=== PATIENT | female | born 1945 | race Caucasian/White ===

== ENCOUNTER → 2017-12-11 | Outpatient (REF) | payer MEDICARE | LOC: M LAB REF 12:44 | DX: R53.83 Other fatigue (principal) | CPT/HCPCS: 82607 ==

== ENCOUNTER 2018-09-17 20:39 | Inpatient (IN) | payer MEDICARE ==
[~2018-09-17] VITALS: Ht 167.6 cm; Wt 67.1 kg
[2018-09-17] MEDS ORDERED: NEUR300C PO (20:54)
[2018-09-17] MEDS ORDERED: VITAD1000T PO (21:00)
[2018-09-17] MEDS ORDERED: BIOT10TA2 PO (21:00)
[2018-09-17] MEDS ORDERED: GABAPENTIN 300 MG CAP PO SCH (21:00)
[2018-09-17] MEDS ORDERED: ASPI81TA85 PO (21:00)
[2018-09-17] MEDS ORDERED: CIDA500T2 PO (21:00)
[2018-09-17] MEDS ORDERED: FISH1000 PO (21:00)
[2018-09-17] MEDS ORDERED: CALC600T60 PO (21:00)
[2018-09-17] MEDS ORDERED: COQ-100C5 PO (21:03)
[2018-09-17] MEDS ORDERED: STOO1CAP7 PO (21:03)
[2018-09-17] MEDS ORDERED: NS 500 ML IV ONE (21:15)
[2018-09-17] MEDS: MORPHINE 2 MG/ML 1ML SYRINGE (J2270) IV PRN ×2 (21:40→23:40)
[2018-09-17 21:47] LABS: BASO % 0.6 % (0.0-1.0); EOS # 0.1 10^3/uL (0.0-0.50); EOS % 1.4 % (0.0-3.0); HEMATOCRIT 36.2 % (36.0-47.0); HEMOGLOBIN 11.8 g/dl (12.0-15.5); LYMPH # 1.5 10^3/uL (1.5-4.5); LYMPH % 20.6 % (24.0-44.0); MEAN CORPUSCULAR HEMOGLOBIN 29.5 pg (27.0-33.0); MEAN CORPUSCULAR HGB CONC 32.6 g/dl (32.0-36.5); MEAN CORPUSCULAR VOLUME 90.5 fl (80.0-96.0); MONO # 0.5 10^3/uL (0.0-0.8); MONO % 6.6 % (0.0-5.0); NEUTROPHILS % 70.4 % (36.0-66.0); PLATELET COUNT, AUTOMATED 258 10^3/uL (150-450); WHITE BLOOD COUNT 7.1 10^3/uL (4.0-10.0)
[2018-09-17 21:59] LABS: INR 1.06; PROTHROMBIN TIME 13.5 SECONDS (11.8-14.0)
[2018-09-17 22:00] LABS: PARTIAL THROMBOPLASTIN TIME 30.7 SECONDS (25.0-38.4)
[2018-09-17 22:15] LABS: ALBUMIN 3.7 GM/DL (3.2-5.2); ALT/SGPT 27 U/L (12-78); BILIRUBIN,DIRECT 0.1 MG/DL (0.0-0.2); BILIRUBIN,TOTAL 0.3 MG/DL (0.2-1.0); BLOOD UREA NITROGEN 17 MG/DL (7-18); CALCIUM LEVEL 8.6 MG/DL (8.8-10.2); CARBON DIOXIDE LEVEL 25 MEQ/L (21-32); CHLORIDE LEVEL 109 MEQ/L (98-107); CK-MB VALUE MASS 2.9 NG/ML (<3.6); CPK CREATINE PHOSPHOKINASE 137 U/L (26-192); CREATININE FOR GFR 0.78 MG/DL (0.55-1.30); FREE T4 0.99 NG/DL (0.76-1.46); GLOMERULAR FILTRATION RATE > 60.0 (>39); GLUCOSE, FASTING 92 MG/DL (70-100); MB/CK RELATIVE INDEX 2.12 (< OR =4); POTASSIUM SERUM 3.9 MEQ/L (3.5-5.1); SODIUM LEVEL 143 MEQ/L (136-145); TOTAL PROTEIN 6.5 GM/DL (6.4-8.2); TROPONIN I < 0.02 NG/ML (< 0.10)
[2018-09-17] MEDS ORDERED: VITMTA PO (22:57)
[2018-09-17] MEDS ORDERED: GLUCTAB6 PO (22:57)
[2018-09-17] MEDS ORDERED: DOCUSATE SODIUM 100 MG CAP PO PRN (23:45)
[2018-09-17] MEDS ORDERED: ACETAMINOPHEN TAB 650MG DOSE (2X325MG) PO PRN (23:45)
[2018-09-18] VITALS (7 sets, daily range): BP systolic 125–157; BP diastolic 65–76
--- NOTE | 2018-09-18 01:46 | HPEPDOC ---
General Date of Admission Sep 17, 2018 at 23:31 Date of Service: Sep 18, 2018 Chief Complaint The patient is a 72-year-old female admitted with a reason for visit of Fracture Of Right Hip. History of Present Illness 72-year-old female with past medical history of osteoporosis and neuropathy secondary to chronic back pain presented to the ER after she sustained a mechanical fall. The patient states that she was walking down the steps and missed a step and fell on her right side. She denies any prodromal symptoms of lightheadedness, dizziness, chest pain, palpitations, abdominal pain, or any nausea/vomiting/diarrhea. At baseline, the patient states she is quite active and gardens for hours at a time. She also states that she is able to mow her own lawn with a push lawnmower for extended periods of time without any complaints. She denies any history of cardiac disease or lung disease. She denies any functional limitations, and is able to climb several flights of stairs while holding a bag of groceries. She was brought to the ER for further evaluation and management. In the ER, patient was noted to have a right hip fracture. She was evaluated by orthopedic surgery, and is tentatively scheduled for the OR tomorrow. She will be admitted to the hospitalist service for further evaluation and management. Home Medications Scheduled Biotin (Biotin) 10 Mg Tablet, 10 MG PO QHS, (Reported) Calcium Carbonate (Calcium) 600 Mg Tablet, 600 MG PO BID, (Reported) Gabapentin (Neurontin) 300 Mg Capsule, 300 MG PO TID, (Reported) Gluc Klein/Chondro Klein A/Vit C/Mn (Glucosamine Chondroitin Tab) 1 Each Tablet, 2 TAB PO BID, (Reported) Multivitamins (Thera M Plus Tablet) 1 Each Tablet, 1 TAB PO DAILY, (Reported) Carmel-3 Fatty Acids/Fish Oil (Fish Oil 1,000 mg Capsule) 1 Each Capsule, 1,000 MG PO QHS, (Reported) Ubidecarenone (Coq-10) 100 Mg Capsule, 100 MG PO DAILY, (Reported) Scheduled PRN Docusate Sodium (Stool Softener) 250 Mg Capsule, 250 MG PO DAILY PRN for CONSTIPATION, (Reported) Allergies Coded Allergies: No Known Allergies (Unverified , 09/17/18) Past Medical History Medical History As noted in HPI. Social History * Smoker: Denies Alcohol: occationally Drugs: denies Functionally independent. Lives with her . Review of Systems Other systems 10 point review of systems negative unless otherwise specified in HPI. Physical Examination General Exam: Positive: Alert, Cooperative, No Acute Distress ENT Exam: Positive: Atraumatic, Mucous membr. moist/pink Neck Exam: Negative: JVD Chest Exam: Positive: Clear to auscultation, Normal air movement Heart Exam: Positive: Rate Normal, Normal S1, Normal S2 Abdomen Exam: Positive: Soft; Negative: Tenderness Extremity Exam: Positive: Other (right hip joint with limited range of motion secondary to fracture. Extremity neurovascularly intact distally.); Negative: Swelling Psych Exam: Positive: Oriented x 3 Vital Signs Vital Signs Date Time Temp Pulse Resp B/P (MAP) Pulse Ox O2 Delivery O2 Flow Rate FiO2 09/18/18 00:14 18 95 09/17/18 23:45 74 09/17/18 23:44 142/67 (92) Room Air 09/17/18 20:55 97.7 Laboratory Data Labs 24H Laboratory Tests 2 09/17/18 21:21: Immature Granulocyte % (Auto) 0.4, White Blood Count 7.1, Red Blood Count 4.00, Hemoglobin 11.8L, Hematocrit 36.2, Mean Corpuscular Volume 90.5, Mean Co rpuscular Hemoglobin 29.5, Mean Corpuscular Hemoglobin Concent 32.6, Red Cell Distribution Width 13.3, Platelet Count 258, Neutrophils (%) (Auto) 70.4H, Lymphocytes (%) (Auto) 20.6L, Monocytes (%) (Auto) 6.6H, Eosinophils (%) (Auto) 1.4, Basophils (%) (Auto) 0.6, Neutrophils # (Auto) 5.0, Lymphocytes # (Auto) 1.5, Monocytes # (Auto) 0.5, Eosinophils # (Auto) 0.1, Basophils # (Auto) 0.0, Nucleated Red Blood Cells % (auto) 0.0, Prothrombin Time 13.5, Prothromb Time International Ratio 1.06, Activated Partial Thromboplast Time 30.7, Anion Gap 9, Glomerular Filtration Rate > 60.0, Calcium Level 8.6L, Aspartate Amino Transf (AST/SGOT) 30, Alanine Aminotransferase (ALT/SGPT) 27, Alkaline Phosphatase 53, Total Bilirubin 0.3, Direct Bilirubin 0.1, Total Creatine Kinase 137, Creatine Kinase MB 2.9, Creatine Kinase MB Relative Index 2.12, Troponin I < 0.02, Total Protein 6.5, Albumin 3.7, Albumin/Globulin Ratio 1.32, Thyroid Stimulating Hormone (TSH) 7.370H, Free Thyroxine 0.99 CBC/BMP Laboratory Tests 09/17/18 21:21 Red Blood Count 4.00, Mean Corpuscular Volume 90.5, Mean Corpuscular Hemoglobin 29.5, Mean Corpuscular Hemoglobin Concent 32.6, Red Cell Distribution Width 13.3, Neutrophils (%) (Auto) 70.4 H, Lymphocytes (%) (Auto) 20.6 L, Monocytes (%) (Auto) 6.6 H, Eosinophils (%) (Auto) 1.4, Basophils (%) (Auto) 0.6, Neutrophils # (Auto) 5.0, Lymphocytes # (Auto) 1.5, Monocytes # (Auto) 0.5, Eosinophils # (Auto) 0.1, Basophils # (Auto) 0.0 Plan / VTE VTE Prophylaxis Ordered?: Yes Plan Plan Right Hip Fracture XR imaging noted Patient evaluated by orthopedic surgery, tentatively schedule for the operating room in the a.m. At this time, the patient is medically optimized to proceed for surgical intervention. No further invasive testing is necessary. History of neuropathy Continue gabapentin DVT prophylaxis SCDs/TEDs for now---will need to be transitioned to prophylactic anticoagulation as per orthopedic surgery postoperatively EBENEZER DURAN MD Sep 18, 2018 01:46
[2018-09-18] MEDS: GABAPENTIN 300 MG CAP PO SCH ×3 (05:01→21:08)
[2018-09-18] MEDS: PERCOCET 5MG/325MG TAB PO PRN ×2 (05:01→12:33)
--- NOTE | 2018-09-18 05:47 | CR ---
DATE OF CONSULTATION: 09/17/2018 CHIEF COMPLAINT: Right hip pain. HISTORY OF PRESENT ILLNESS: This is a pleasant 72-year-old female, who [place] opera [place] when she missed a step and fell to her right hip. She had immediate pain and was able to ambulate. The patient is quite healthy at baseline and is very active. She does not require a cane or walker. She mows her own lawn and has no difficulty with activities such as climbing stairs. She was brought to the emergency room (ER) where she was found to have a displaced right femoral neck fracture. PAST MEDICAL HISTORY: 1. Osteoporosis. 2. Lower back pain due to a herniated disk. PAST SURGICAL HISTORY: Tonsillectomy. ALLERGIES: No known drug allergies. HOME MEDICATIONS: Biotin, calcium carbonate, gabapentin, glucosamine, multivitamins, fish oil, vitamin CoQ 10. SOCIAL HISTORY: The patient does not smoke. She occasionally drinks alcohol. Again, she is quite active. She is here tonight with her . They live in [place]. PHYSICAL EXAMINATION: GENERAL: Well-appearing, alert and oriented, in no acute distress. CARDIOVASCULAR: Regular rate and rhythm. CHEST: Lungs clear to auscultation bilaterally. ABDOMEN: Soft, nontender. MUSCULOSKELETAL: On the right hip, there is tenderness to palpation along the lateral hip. There is pain. The also complains of pain in her right groin. Intact dorsiflexion, plantar flexion. Intact EHL as well. Normal sensation to light touch in the superficial peroneal, deep peroneal, tibial distribution. Palpable DP pulse. IMAGING: Right hip x-rays show a displaced right femoral neck fracture. IMPRESSION: Right displaced femoral neck fracture. PLAN: The patient will be admitted to the medical service and cleared for the operating room. A discussion was had with the patient and her . Given the nature of her fracture, she could potentially be a candidate for a total hip arthroplasty given her young age and an active lifestyle. Another consideration would be a hemiarthroplasty. I have told her that she can further discuss this tomorrow with the insulation helper physician. Plan will be to go to the operating room once medically clear. Until then will need deep vein thrombosis (DVT) prophylaxis depending on when she will be able to go to the operating room. edited: 09/23/2018 0820 nishant JOHNSON
[2018-09-18 06:51] LABS: HEMATOCRIT 36.3 % (36.0-47.0); MEAN CORPUSCULAR HEMOGLOBIN 29.7 pg (27.0-33.0); MEAN CORPUSCULAR HGB CONC 33.1 g/dl (32.0-36.5); MEAN CORPUSCULAR VOLUME 89.9 fl (80.0-96.0); PLATELET COUNT, AUTOMATED 256 10^3/uL (150-450); RED BLOOD COUNT 4.04 10^6/uL (4.00-5.40); WHITE BLOOD COUNT 6.4 10^3/uL (4.0-10.0)
[2018-09-18 07:11] LABS: BLOOD UREA NITROGEN 13 MG/DL (7-18); CALCIUM LEVEL 8.4 MG/DL (8.8-10.2); CARBON DIOXIDE LEVEL 31 MEQ/L (21-32); CHLORIDE LEVEL 111 MEQ/L (98-107); GLOMERULAR FILTRATION RATE > 60.0 (>39); GLUCOSE, FASTING 93 MG/DL (70-100); MAGNESIUM LEVEL 2.1 MG/DL (1.8-2.4); POTASSIUM SERUM 3.9 MEQ/L (3.5-5.1); SODIUM LEVEL 145 MEQ/L (136-145)
--- NOTE | 2018-09-18 08:47 | REP ---
PELVIS AND RIGHT HIP: AP view of the pelvis and AP and crosstable lateral views of the right hip are performed. There is a right femoral neck fracture. No other acute fracture or dislocation is seen. There are mild degenerative changes of the lower lumbar spine and hips. IMPRESSION: Right femoral neck fracture. Electronically Signed by Norberto Fernando MD 09/19/2018 10:35 A
--- NOTE | 2018-09-18 08:52 | REP ---
CHEST, SINGLE VIEW: Single view of the chest is performed and compared to a prior study of 09/12/2015. There is no acute infiltrate. Heart is upper limits of normal in size. Mediastinal silhouette is unchanged. IMPRESSION: No acute infiltrate. Electronically Signed by Norberto Fernando MD 09/19/2018 10:35 A
[2018-09-18] MEDS: MULTIVITAMINS/MINERALS THERAP 1 TAB PO SCH (10:04)
--- NOTE | 2018-09-18 12:04 | IPN ---
DATE OF CONSULTATION: 09/18/2018 Patient seen and examined. 72-year woman who fell yesterday injuring her right hip. She was noted to have a right femoral neck fracture. She was seen by Dr. Knott and was cleared for surgery today. She has been nothing by mouth. Preoperative antibiotics have been ordered. She has a type and screen available. I spoke with Dr. Knott today and she had requested that I proceed with surgical treatment of this. The patient and her significant other were aware. She essentially missed a step and fell onto her right hip. Past medical history is notable for osteoporosis and lower back pain due to herniated disc and takes Neurontin for this. Physician exam, otherwise alert, oriented, no acute distress. The right hip demonstrates some irritability with range of motion, some tenderness to palpation. She has no tenderness to her femur, knee, tibia, ankle, foot. Her left lower extremity is non-irritable to range of motion. X-rays were reviewed, and she has a Garden IV femoral neck fracture with a displaced fracture. I spoke with her about the options as had Dr. Knott. She has been cleared for surgery. I believe the options would be in my mind open reduction, internal fixation of the fracture but I think that would not be the first choice given her age and the displacement of the fracture and the high risk of avascular necrosis (AVN) and nonunion. There would be consideration for total hip replacement or hemiarthroplasty. I would advise hemiarthroplasty due to the fact that she is 72 years of age and she had no preexisting hip pain. X-rays do not show any significant arthritic change, maybe minimal. I have also discussed this with several of my partners. She is in agreement and wishes to go ahead with a right hip hemiarthroplasty; that is remove the femoral head and replace the femoral head with a metal prosthesis that cemented into the femur. She understands the nature of this, the risks of bleeding, infection, damage to nerves, vessels, persistent pain, wear loosening, dislocation, blood clots, medical problems, , among others. We will plan on doing a right hip hemiarthroplasty. edited: 09/23/2018 0823 tkf JUAND
[2018-09-18] MEDS ORDERED: EPINEPHrine INJ 1 MG/ML 1ML AMP As Ordered ONE (15:40)
[2018-09-18] MEDS ORDERED: ceFAZolin 1GM INJ (J0690 PER 500MG) As Ordered ONE (15:40)
[2018-09-18] MEDS ORDERED: LIDOCAINE 2% INJ 100 MG/5 ML SDV (FOR ANES.) As Ordered ONE (15:47)
[2018-09-18] MEDS ORDERED: MIDAZOLAM INJ 2 MG/2 ML VIAL (J2250) As Ordered ONE (15:47)
[2018-09-18] MEDS ORDERED: PROPOFOL 200 MG/20 ML VIAL As Ordered ONE ×2 (15:47→17:44)
[2018-09-18] MEDS ORDERED: ONDANSETRON 4MG/2ML VIAL (J2405) As Ordered ONE ×2 (15:50→18:27)
[2018-09-18] MEDS ORDERED: ceFAZolin 2 GM/D5W 50 ML IV BAG (J0690 PER 500MG) As Ordered ONE (16:12)
[2018-09-18] MEDS ORDERED: KETAMINE HCL 200 MG/20 ML VIAL As Ordered ONE (16:25)
[2018-09-18] MEDS ORDERED: ePHEDrine SULFATE 25 MG/5 ML(5MG/ML) SYRINGE As Ordered ONE (17:11)
[2018-09-18] MEDS ORDERED: PHENYLEPHRINE INJ 10MG/ML VIAL (J2370) As Ordered ONE (17:16)
[2018-09-18] MEDS ORDERED: PERCOCET 5MG/325MG TAB As Ordered ONE (18:27)
[2018-09-18] MEDS ORDERED: METOCLOPRAMIDE INJ 10MG/2ML VIAL (J2765) As Ordered ONE (18:27)
[2018-09-18] MEDS ORDERED: PERCOCET 5MG/325MG TAB PO PRN (18:30)
[2018-09-18] MEDS ORDERED: ONDANSETRON 4MG/2ML VIAL (J2405) IV PRN ×2 (18:30→18:45)
[2018-09-18] MEDS ORDERED: METOCLOPRAMIDE INJ 10MG/2ML VIAL (J2765) IV PRN (18:30)
[2018-09-18] MEDS ORDERED: fentaNYL 100 MCG/2 ML INJECTION (J3010) IV PRN (18:30)
[2018-09-18] MEDS ORDERED: LR 1,000 ML IV SCH ×2 (18:30)
[2018-09-18] MEDS ORDERED: FLEET ENEMA PR PRN (18:45)
[2018-09-18] MEDS ORDERED: MORPHINE 4 MG/ML 1ML VIAL/SYRINGE (J2270) IV PRN ×2 (18:45)
--- NOTE | 2018-09-18 20:22 | ECGEPIP ---
[facility] - ED Test Date: 2018-09-17 Pat Name: JADA FRYE Department: Room: [place] [address] Gender: Female Cardiac Cath Lab Manager: DELBERT : 1945 Requested By: JUANI Walker Order Number: [id number] Reading MD: Amari Phillips Measurements Intervals [place] Rate: 69 P: 60 SD: 191 QRS: 57 QRSD: 88 T: 64 QT: 369 QTc: 397 Interpretive Statements SINUS RHYTHM POSSIBLE LEFT ATRIAL ENLARGEMENT POSSIBLE LEFT VENTRICULAR HYPERTROPHY NO PRIOR ECG FOR COMPAIRSON BASELINE ARTIFACT MAY AFFECT READING DELAYED R WAVE PROGRESSION Electronically Signed on 09-18-2018 20:21:30 EDT by Amari Phillips
[2018-09-19] MEDS: PERCOCET 5MG/325MG TAB PO PRN ×4 (00:01→22:45)
[2018-09-19 06:13] VITALS: BP 127/65
[2018-09-19] MEDS: GABAPENTIN 300 MG CAP PO SCH ×3 (06:33→21:14)
--- NOTE | 2018-09-19 06:39 | ECGEPIP ---
[facility] Test Date: 2018-09-18 Pat Name: JADA FRYE Department: Room: [place] [address] Gender: Female Sample Coordinator: GUANACO : 1945 Requested By: Barak Duncan Order Number: [id number] Reading MD: Khloe Gomes Measurements Intervals [place] Rate: 64 P: 61 WI: 181 QRS: 62 QRSD: 99 T: 68 QT: 406 QTc: 421 Interpretive Statements SINUS RHYTHM VOLTAGE CRITERIA FOR LVH UNEVEN BASELINE IMPROVED T ABN V2 APPEARS Stable c/w 09/17/18 Electronically Signed on 09-19-2018 6:39:18 EDT by Khloe Gomes
[2018-09-19 06:43] LABS: HEMATOCRIT 32.2 % (36.0-47.0); HEMOGLOBIN 10.3 g/dl (12.0-15.5); MEAN CORPUSCULAR HEMOGLOBIN 29.3 pg (27.0-33.0); MEAN CORPUSCULAR VOLUME 91.7 fl (80.0-96.0); PLATELET COUNT, AUTOMATED 221 10^3/uL (150-450); RED BLOOD COUNT 3.51 10^6/uL (4.00-5.40); WHITE BLOOD COUNT 6.7 10^3/uL (4.0-10.0)
--- NOTE | 2018-09-19 07:00 | REP ---
Right hip: Two views. History: Postop evaluation. Findings: A right hip replacement is seen in good position. Periarticular soft tissue emphysema is seen. Lateral skin babita are noted. Electronically Signed by aH Molina MD 09/19/2018 11:54 A
[2018-09-19 09:00] VITALS: BP_SYST 110
--- NOTE | 2018-09-19 09:18 | IPNPDOC ---
Date Seen The patient was seen on 09/19/18. Progress Note SUBJECTIVE: 72 Y female with history of osteoporosis and low back pain admitted for right hip fracture due to fall underwent right cassandra-arthroplasty yesterday doing well no events overnight Review of systems no fever no chills no chest pain no abdominal pain no diarrhea OBJECTIVE PHYSICAL EXAMINATION: VITAL SIGNS: Please see below. GENERAL: AA ox3, no distress, lying in the bed and comfortable HEENT: atraumatic CARDIOVASCULAR: S1 S2 regular no murmur RESPIRATORY: clear, no rales no wheezing ABDOMINAL: soft BS + non tender EXTREMITIES: no edema, right hip surgery dressing clear and dry NEUROLOGICAL: non focal PSYCHOLOGICAL: no agitation LABORATORY DATA, IMAGING STUDIES, MICROBIOLOGY: Please see below. DVT prophylaxis ordered?: yes ASSESSMENT AND PLAN: Right hip fracture due to mechanical fall s/p Day #1 hemiarthroplasty pain control DVT prophylaxis on Xarelto per ortho PT Spirometry use PRN ortho follows VS, I&O, 24H, Fishbone Vital Signs/I&O Vital Signs Date Time Temp Pulse Resp B/P (MAP) Pulse Ox O2 Delivery O2 Flow Rate FiO2 09/19/18 06:33 18 09/19/18 06:13 99.3 78 127/65 (85) 93 2.0 09/17/18 23:44 Room Air I&O- Last 24 Hours up to 6 AM 09/19/18 06:00 Intake Total 880 ml Output Total 875 ml Balance 5 ml Laboratory Data 24H LABS Laboratory Tests 2 09/19/18 06:23: Nucleated Red Blood Cells % (auto) 0.0 CBC/BMP Laboratory Tests 09/19/18 06:23 Red Blood Count 3.51 L, Mean Corpuscular Volume 91.7, Mean Corpuscular Hemoglobin 29.3, Mean Corpuscular Hemoglobin Concent 32.0, Red Cell Distribution Width 13.5 JASON GOODRICH MD Sep 19, 2018 09:18
[2018-09-19] MEDS: MULTIVITAMINS/MINERALS THERAP 1 TAB PO SCH (09:46)
[2018-09-19] MEDS: MOM 30ML SUSPENSION UDC PO SCH (09:46)
[2018-09-19] MEDS: MIRALAX *UNIT DOSE* 17GM PACKET PO SCH (09:46)
--- NOTE | 2018-09-19 09:47 | REP ---
Right hip: Two views. History: Repeat exam. Findings: AP and cross-table lateral views of the right hip demonstrate right femoral head in good position. Periarticular soft tissue swelling and emphysema is seen. Lateral skin babita are noted. Electronically Signed by Ha Molina MD 09/19/2018 12:03 P
[2018-09-19 11:33] VITALS: BP 110/60
[2018-09-19 13:33] VITALS: BP 90/60
[2018-09-19 15:00] VITALS: BP 94/69
[2018-09-19] MEDS: RIVAROXABAN 10 MG TAB (XARELTO) PO SCH (17:58)
[2018-09-19] MEDS: ACETAMINOPHEN TAB 650MG DOSE (2X325MG) PO PRN (18:25)
[2018-09-19] MEDS: ONDANSETRON 4 MG TAB (S0181) PO PRN (19:51)
[2018-09-19 22:00] VITALS: BP 111/61
[2018-09-20] MEDS: GABAPENTIN 300 MG CAP PO SCH ×3 (05:42→21:12)
[2018-09-20] MEDS: ACETAMINOPHEN TAB 650MG DOSE (2X325MG) PO PRN ×2 (05:43→17:16)
[2018-09-20 06:00] VITALS: BP 111/61
[2018-09-20 07:18] LABS: HEMATOCRIT 31.1 % (36.0-47.0); HEMOGLOBIN 10.2 g/dl (12.0-15.5); MEAN CORPUSCULAR HGB CONC 32.8 g/dl (32.0-36.5); MEAN CORPUSCULAR VOLUME 91.5 fl (80.0-96.0); PLATELET COUNT, AUTOMATED 220 10^3/uL (150-450); WHITE BLOOD COUNT 10.6 10^3/uL (4.0-10.0)
[2018-09-20] MEDS: MOM 30ML SUSPENSION UDC PO SCH (08:28)
[2018-09-20] MEDS: MULTIVITAMINS/MINERALS THERAP 1 TAB PO SCH (08:28)
[2018-09-20] MEDS: MIRALAX *UNIT DOSE* 17GM PACKET PO SCH ×2 (08:28→08:29)
--- NOTE | 2018-09-20 08:45 | RO ---
DATE OF PROCEDURE: 09/18/2018 PREOPERATIVE DIAGNOSIS: Right hip fracture, femoral neck displaced - Garden IV. POSTOPERATIVE DIAGNOSIS: Right hip fracture, femoral neck displaced - Garden IV. PROCEDURE: Right hip hemiarthroplasty using a DePuy cemented stem size 6, +0 and a 47 ball. SURGEON: Wiley Young MD WELDER [employer]ODUCTION LINE COMBINATION: Naomi Posey PA-C ANESTHESIA: Spinal. ESTIMATED BLOOD LOSS: 200 mL. COMPLICATIONS: None. INDICATIONS: This is a 72-year-old woman who fell yesterday injuring her right hip. She sustained a displaced femoral neck fracture. We talked about surgical options, and we decided to go ahead with the hemiarthroplasty. She understood the alternatives of open reduction internal fixation (ORIF), total hip, etc. She understood the nature of this, the risks of bleeding, infection, damage to nerves, vessels, persistent pain, wear, loosening, dislocation, leg length inequality, blood clots, medical problems, , among others. DESCRIPTION OF PROCEDURE: The patient was taken to the operating room, placed in the left lateral decubitus position on the [place] positioner. All areas were padded appropriately. The right hip was prepped and draped in the usual sterile fashion. A time-out was performed. I then created a longitudinal incision over the lateral aspect of the hip. Sharp dissection was carried out down through subcutaneous tissue. I then incised the fascia, exposed the abductors and divided the anterior 40% of the abductor off of the femur exposing the femoral neck and the displaced fracture. Put the leg in the bag once I had exposed down to the lesser trochanter and used the canal initiating reamer, the canal finding reamer, the lateralizing reamer and then made the neck cut at about a half a fingerbreadth up from the lesser trochanter. The excess bone was removed, the femoral head was removed with a corkscrew and the broaches were used to broach up to a size 6, which had an excellent fit and fill. Calcar planer was used to smooth off the calcar, and I then performed a trial reduction with the +0 47 ball, and reduced the hip, put the hip through a range of motion, was very pleased with the soft tissue tension and the stability. She had minimal shuck in full extension, very good stability in flexion internal rotation, extension external rotation, and the cut had been to I estimate is about three-quarters of a centimeter above the lesser trochanter. I removed the trial components, irrigated the canal, irrigated the cup placed some sponges in the acetabulum and placed the size 4 cement restrictor at appropriate distance down the canal and irrigated with the brush and used the epinephrine-soaked vaginal pack followed by dry sponges in the canal as the speech assistant prepared the bone cement in the modern technique. Once the canal was dry, I then retrograde filled it with the cement, placed the actual size 6 stem, waited until this hardened and placed the +0 47 ball, impacted this in place over the taper, and removed the sponges from the acetabulum and reduced the hip. Again, excellent stability was noted, the hip reduced with appropriate difficulty and excellent range of motion and soft tissue tension was noted. I again copiously irrigated as I had multiple times prior to this ,repaired the minimus with #1 Vicryl suture, the abductor with #1 Vicryl suture with at least two stitches being placed through bone. She did have actually reasonably good bone but several stitches were placed to close the abductor. The fascia jesús was then closed with #1 Vicryl suture and running Stratafix suture. Irrigated, closed the subcu with #2-0 Vicryl and the skin with babita. Sterile dressing was applied, and she was taken to recovery room in stable condition. There were no known complications. The plan will be routine postop. The speech assistant was instrumental in holding retractors and assisting in reducing and dislocating the hip and assisting in making the bone cement and wound closure. The plan will be routine postop.
--- NOTE | 2018-09-20 10:56 | IPNPDOC ---
Date Seen The patient was seen on 09/20/18. Progress Note SUBJECTIVE: 72 Y female with history of osteoporosis and low back pain admitted for right hip fracture due to fall underwent right cassandra-arthroplasty 09/18 doing well no events overnight Review of systems no fever no chills no chest pain no abdominal pain no diarrhea OBJECTIVE PHYSICAL EXAMINATION: VITAL SIGNS: Please see below. GENERAL: AA ox3, no distress, and comfortable HEENT: atraumatic CARDIOVASCULAR: S1 S2 regular no murmur RESPIRATORY: clear, no rales no wheezing ABDOMINAL: soft BS + non tender EXTREMITIES: no edema, right hip surgery dressing clear and dry NEUROLOGICAL: non focal PSYCHOLOGICAL: no agitation LABORATORY DATA, IMAGING STUDIES, MICROBIOLOGY: Please see below. DVT prophylaxis ordered?: yes ASSESSMENT AND PLAN: Right hip fracture due to mechanical fall s/p Day #2 hemiarthroplasty pain control DVT prophylaxis on Xarelto per ortho PT Spirometry use PRN ortho follows she may go to rehab Thursday 09/21 VS, I&O, 24H, Fishbone Vital Signs/I&O Vital Signs Date Time Temp Pulse Resp B/P (MAP) Pulse Ox O2 Delivery O2 Flow Rate FiO2 09/20/18 06:00 98.1 85 20 111/61 (78) 93 2.0 09/17/18 23:44 Room Air I&O- Last 24 Hours up to 6 AM 09/20/18 06:00 Intake Total 1520 ml Output Total 1250 ml Balance 270 ml Laboratory Data 24H LABS Laboratory Tests 2 09/20/18 06:18: Nucleated Red Blood Cells % (auto) 0.0 CBC/BMP Laboratory Tests 09/20/18 06:18 Red Blood Count 3.40 L, Mean Corpuscular Volume 91.5, Mean Corpuscular Hemoglobin 30.0, Mean Corpuscular Hemoglobin Concent 32.8, Red Cell Distribution Width 13.2 JASON GOODRICH MD Sep 20, 2018 10:56
[2018-09-20] MEDS: ONDANSETRON 4 MG TAB (S0181) PO PRN (13:55)
[2018-09-20] MEDS: PERCOCET 5MG/325MG TAB PO PRN ×2 (13:56→21:13)
[2018-09-20 14:00] VITALS: BP 111/63
[2018-09-20] MEDS: RIVAROXABAN 10 MG TAB (XARELTO) PO SCH (17:16)
[2018-09-20 22:00] VITALS: BP 110/62
[2018-09-21] MEDS: ACETAMINOPHEN TAB 650MG DOSE (2X325MG) PO PRN ×3 (05:46→21:45)
[2018-09-21] MEDS: GABAPENTIN 300 MG CAP PO SCH ×3 (05:46→21:45)
[2018-09-21 06:00] VITALS: BP 110/62
[2018-09-21] MEDS ORDERED: PERC5TAB12 PO (08:35)
[2018-09-21] MEDS ORDERED: XARE10TA PO (08:35)
[2018-09-21] MEDS: MIRALAX *UNIT DOSE* 17GM PACKET PO SCH (08:38)
[2018-09-21] MEDS: MOM 30ML SUSPENSION UDC PO SCH (08:38)
--- NOTE | 2018-09-21 08:38 | IPN ---
DATE: 09/21/2018 Stephenie is seen while rounding for the hospitalist. She is status post right hip fracture secondary to fall. Underwent right hemiarthroplasty on 09/18/2018. She is doing well medically. No chest pain or shortness of breath. Denies any significant medical issues. PAST MEDICAL HISTORY: Shows osteoporosis and neuropathy. PHYSICAL EXAMINATION: VITAL SIGNS: Stable. Blood pressure 110/62. LUNGS: Clear. HEART: Regular rhythm. ABDOMEN: Soft, nontender. NEUROLOGIC: Nonfocal. LABORATORIES: No new laboratories for today. IMPRESSION: The patient is medically stable and recovering well from her hip surgery. Encouraged her to continue her incentive spirometry. The hospitalist group will follow her medically.
[2018-09-21] MEDS: ONDANSETRON 4 MG TAB (S0181) PO PRN (08:39)
[2018-09-21] MEDS: PERCOCET 5MG/325MG TAB PO PRN ×2 (08:39→09:19)
[2018-09-21] MEDS: MULTIVITAMINS/MINERALS THERAP 1 TAB PO SCH (08:39)
[2018-09-21 14:52] VITALS: BP 124/69
[2018-09-21] MEDS: RIVAROXABAN 10 MG TAB (XARELTO) PO SCH (18:18)
[2018-09-21 22:00] VITALS: BP 124/70
[2018-09-22] MEDS: ONDANSETRON 4 MG TAB (S0181) PO PRN (00:18)
[2018-09-22 02:00] VITALS: BP 129/74
[2018-09-22] MEDS: PERCOCET 5MG/325MG TAB PO PRN ×2 (05:05→15:34)
[2018-09-22] MEDS: GABAPENTIN 300 MG CAP PO SCH ×3 (05:05→21:24)
[2018-09-22 06:00] VITALS: BP 118/70
--- NOTE | 2018-09-22 08:29 | IPN ---
DATE: 09/22/2018 No change in Stephenie. She is walking better. She got out of bed yesterday. No chest pain, no shortness of breath. Vital signs stable. Lungs clear. Heart regular rhythm. Abdomen soft. Nontender IMPRESSION: Right hip fracture, progressing well with ambulation. No current medical issues.
[2018-09-22] MEDS: MOM 30ML SUSPENSION UDC PO SCH (09:00)
[2018-09-22] MEDS: MIRALAX *UNIT DOSE* 17GM PACKET PO SCH (09:00)
[2018-09-22] MEDS: MULTIVITAMINS/MINERALS THERAP 1 TAB PO SCH (10:13)
[2018-09-22] MEDS: ACETAMINOPHEN TAB 650MG DOSE (2X325MG) PO PRN ×2 (10:13→21:25)
[2018-09-22 16:37] VITALS: BP 132/71
[2018-09-22] MEDS: RIVAROXABAN 10 MG TAB (XARELTO) PO SCH (17:47)
[2018-09-22 22:00] VITALS: BP 135/74
[2018-09-23 06:00] VITALS: BP 111/66
[2018-09-23] MEDS ORDERED: ACETAMINOPHEN 500 MG TAB PO SCH (06:00)
[2018-09-23] MEDS: GABAPENTIN 300 MG CAP PO SCH (06:14)
[2018-09-23] MEDS ORDERED: TRAM50TA2 PO (07:37)
[2018-09-23] MEDS ORDERED: ACET-683 PO (07:37)
[2018-09-23] MEDS ORDERED: traMADol 50 MG TAB PO PRN ×2 (08:00)
[2018-09-23] MEDS: MULTIVITAMINS/MINERALS THERAP 1 TAB PO SCH (08:14)
[2018-09-23] MEDS: MOM 30ML SUSPENSION UDC PO SCH (08:14)
[2018-09-23] MEDS: MIRALAX *UNIT DOSE* 17GM PACKET PO SCH (08:15)
--- NOTE | 2018-09-23 08:46 | DSES ---
DATE OF ADMISSION: 09/17/2018 DATE OF DISCHARGE: PRINCIPAL DIAGNOSIS: Right hip fracture after fall. SECONDARY DIAGNOSES: Osteoporosis. Peripheral neuropathy secondary to chronic back pain. HISTORY: Stephenie Nichols fell and fractured her right hip. Details in the history and physical admission. HOSPITAL COURSE: Patient was admitted to a medical bed. Underwent right hip hemiarthroplasty by Dr. Wiley Yougn on 09/18/2018. Post-op course was uncomplicated. She had an uneventful hospitalization. Day of discharge, she was asking to have her gabapentin dose increased from 300 mg three times a day to 400 mg three times a day hoping it will reduce the amount of tramadol that she has needed for pain. SIGNIFICANT LABS: CBC 09/20/2018: White count 10.6, hemoglobin 10.2, platelets 220. Sodium 145, potassium 3.9, BUN 13, creatinine 0.7. DISPOSITION: She is being discharged to [facility] today for rehab. Activity is as tolerated, and a regular diet. Medications are Tylenol 1000 mg every 8 hours as needed for pain, tramadol 50 mg every 4 hours as needed for pain, Xarelto 10 mg daily for a month for deep venous thrombosis (DVT) prophylaxis. Her Neurontin dose was increased this morning to 400 mg three times a day. Otherwise, she is staying on the over the counter vitamins and supplements she was taking, which include coenzyme Q10, Luck-3 fatty acids, multivitamin, glucosamine chondroitin, calcium carbonate, Biotin. She is to followup with her primary care provider after discharge, followup with orthopedics per their office.
[2018-09-23] MEDS ORDERED: GABAPENTIN 400 MG CAP PO SCH (16:00)
== END 2018-09-23 13:00 | DRG 470 ==
LOC: M ED 20:39 → M ED INP 23:31 → M MS5PR 09-18 00:40
PROVIDERS: ADMIT Internal Medicine; ATTEND Family Medicine
PROC: 0SRR0J9 Replacement of Right Hip Joint, Femoral Surface with Synthetic Substitute, Cemented, Open Approach (ICD-10-PCS; principal; 2018-09-18 15:15)
DX: S72.001A Fracture of unspecified part of neck of right femur, initial encounter for closed fracture (principal); M81.0 Age-related osteoporosis without current pathological fracture; G62.9 Polyneuropathy, unspecified; Z79.899 Other long term (current) drug therapy; W10.9XXA Fall (on) (from) unspecified stairs and steps, initial encounter; V00-Y99 External causes of morbidity

== ENCOUNTER → 2018-09-29 | Outpatient (REF) ==
[~2018-09-29] MED LIST: ACET-683 PO; ASPI81TA85 PO; BIOT10TA2 PO; CALC600T60 PO; CIDA500T2 PO; COQ-100C5 PO; FISH1000 PO; GLUCTAB6 PO; NEUR300C PO; PERC5TAB12 PO; STOO1CAP7 PO; TRAM50TA2 PO; VITAD1000T PO; VITMTA PO; XARE10TA PO
[2018-09-29 09:25] LABS: HEMATOCRIT 28.7 % (36.0-47.0); HEMOGLOBIN 9.2 g/dl (12.0-15.5); MEAN CORPUSCULAR HEMOGLOBIN 29.7 pg (27.0-33.0); MEAN CORPUSCULAR HGB CONC 32.1 g/dl (32.0-36.5); MEAN CORPUSCULAR VOLUME 92.6 fl (80.0-96.0); PLATELET COUNT, AUTOMATED 857 10^3/uL (150-450); WHITE BLOOD COUNT 7.4 10^3/uL (4.0-10.0)
[2018-09-29 09:53] LABS: BLOOD UREA NITROGEN 13 MG/DL (7-18); CARBON DIOXIDE LEVEL 28 MEQ/L (21-32); CHLORIDE LEVEL 105 MEQ/L (98-107); GLOMERULAR FILTRATION RATE > 60.0 (>39); GLUCOSE, FASTING 107 MG/DL (70-100); POTASSIUM SERUM 4.8 MEQ/L (3.5-5.1); SODIUM LEVEL 139 MEQ/L (136-145)
== END ==
PROVIDERS: ATTEND Internal Medicine
DX: S72.91XA Unspecified fracture of right femur, initial encounter for closed fracture (principal)

== ENCOUNTER → 2020-01-20 | Outpatient (REF) | payer MEDICARE ==
[~2020-01-20] MED LIST changes: -ASPI81TA85 PO; +ASPI81TA86 PO; +CHOL100029 PO; +CVS250CA2 PO; -STOO1CAP7 PO; -VITAD1000T PO
== END ==
LOC: M LAB REF 12:13
PROVIDERS: ATTEND Internal Medicine
DX: M81.0 Age-related osteoporosis without current pathological fracture (principal)

== ENCOUNTER → 2020-06-09 | Outpatient (REF) | payer MEDICARE ==
[2020-06-09 13:45] LABS: AMYLASE 32 U/L (25-115); LIPASE 126 U/L (73-393)
== END ==
LOC: M LAB REF 12:15
PROVIDERS: ATTEND Physician Assistant Medical
DX: R10.11 Right upper quadrant pain (principal)

== ENCOUNTER → 2020-06-15 | Outpatient (CLI) | payer MEDICARE ==
--- NOTE | 2020-06-15 08:55 | REP ---
INDICATION: RUQ ABD PAIN COMPARISON: None. TECHNIQUE: Real time anne scale ultrasound examination using curved array transducer. FINDINGS: Liver is normal in contour, size, and echogenicity without focal hepatic lesions identified. Pancreas is incompletely evaluated due to interposed bowel gas. The gallbladder is normal and without gallstones, wall thickening, or pericholecystic fluid. The common bile duct is mildly dilated to 9.2 mm but without obvious choledocholith. No intrahepatic biliary dilatation is appreciated. Right kidney is normal in reniform shape without hydronephrosis and measures 11.2 x 4.1 x 4.2 cm. No ascites in the visualized right upper quadrant. IMPRESSION: Dilated common bile duct may be age related. No evidence for cholelithiasis or choledocholithiasis. <Electronically signed by Joseph Trujillo > 06/15/20 0833
== END ==
LOC: M RAD 08:03
PROVIDERS: ATTEND Physician Assistant Medical
DX: R10.11 Right upper quadrant pain (principal)

== ENCOUNTER → 2020-07-03 | Outpatient (REF) | payer MEDICARE | LOC: M LAB REF 11:59 | PROVIDERS: ATTEND Internal Medicine | DX: M81.0 Age-related osteoporosis without current pathological fracture (principal) ==

== ENCOUNTER → 2020-07-10 | Outpatient (CLI) | payer MEDICARE ==
[~2020-07-10] MED LIST changes: +GASTROGRAFIN SOLUTION 30ML (Q9963) As Ordered ONE; +ISOVUE-370 76% 100ML VIAL As Ordered ONE
--- NOTE | 2020-07-11 10:01 | REP ---
INDICATION: RUQ ABD PAIN W/ BLOOD IN STOOLS. COMPARISON: Comparison sonography June 15, 2020.. TECHNIQUE: Pre and post intravenous contrast enhanced CT imaging is acquired. Oral contrast is administered. The contrast enhancement dose is 100 mL of Isovue 370. 3 mm axial images re-formatted. Coronal and sagittal MPR images are generated. . FINDINGS: Preliminary digital advisory application developer radiograph demonstrates an unremarkable bowel gas pattern. There is a right hip hemiarthroplasty. There is a oval-shaped has liver cyst at the dome of the diaphragm near the IVC measuring 5 cm in greatest diameter. No other focal liver lesion is seen on pre or postcontrast images. No abnormality noted in the gallbladder. Common bile duct measures 9.7 mm in diameter. This corresponds with the sonographic findings. No pancreatic mass is seen. No CT evidence of choledocholithiasis. No intrahepatic ductal dilation is observed. The spleen is unremarkable. Normal adrenal glands are seen. No abnormality is noted in the pancreas. There is no evidence of hydronephrosis or intrarenal calculus on either side. The kidneys enhance symmetrically and appear morphologically intact. Normal caliber aorta is seen. No retroperitoneal mass or adenopathy is observed. There is a retroaortic left renal vein noted incidentally. Moderate stool is seen in the proximal colon. No obstructive gastrointestinal lesion is seen. Small and large bowel loops are otherwise unremarkable. No pelvic mass or adenopathy is seen. There is spray artifact from the right hip prosthetic components. Uterus appears to be surgically absent. No adnexal mass is seen. There are degenerative changes in the lumbar spine and a old partial wedge compression fracture deformity is seen at L3. There is a mild levoconvex curve in the lumbar spine. No abdominal wall defect is seen. IMPRESSION: Benign liver cyst. Mildly dilated common bile duct etiology uncertain. No intrahepatic ductal dilation. No acute abdominal or pelvic abnormality. Old wedge compression deformity L3. Right hip hemiarthroplasty. Prior hysterectomy. <Electronically signed by Dixon Molina > 07/11/20 [id number]
== END ==
LOC: M RAD 16:35
PROVIDERS: ATTEND Physician Assistant Medical
DX: R10.11 Right upper quadrant pain (principal); R19.7 Diarrhea, unspecified; K76.89 Other specified diseases of liver
CPT/HCPCS: 74178; Q9963; Q9967

== ENCOUNTER → 2020-09-07 | Outpatient (CLI) | payer MEDICARE ==
[~2020-09-07] MED LIST changes: -GASTROGRAFIN SOLUTION 30ML (Q9963) As Ordered ONE; -ISOVUE-370 76% 100ML VIAL As Ordered ONE
--- NOTE | 2020-09-07 15:12 | REP ---
INDICATION: MADELYN STENOSIS COMPARISON: None. TECHNIQUE: Real-time ultrasound evaluation and duplex Doppler interrogation of the extracranial carotid vasculature is performed. FINDINGS: Antegrade flow is observed in both vertebral arteries. Right carotid: The right common carotid artery shows diffuse intimal thickening but is otherwise unremarkable. There moderate mixed plaquing in the right carotid bulb and proximal ICA on two-dimensional scanning. Color flow and spectral Doppler interrogation are unremarkable on the right. Velocity chart right carotid: Right CCA PSV: 79 cm/S Right ICA PSV: 119 cm/S Right ICA EDV: 30 cm/S Right ECA PSV: 86 cm/S Right ICA/CCA ratio: 1.51 Left carotid: The left common carotid artery shows diffuse intimal thickening but is otherwise unremarkable. There is moderate mixed plaquing in the left carotid bulb and proximal ICA on two-dimensional scanning. Color flow and spectral Doppler interrogation are unremarkable on the left. Velocity chart left carotid: Left CCA PSV: 109 cm/S Left ICA PSV: 95 cm/S Left ICA EDV: T7 cm/S Left ECA PSV: 73 cm/S Left ICA/CCA ratio: 0.87 IMPRESSION: Less than 50% category narrowing in the right internal carotid artery by Doppler velocity criteria. Moderate mixed plaquing. Less than 50% category narrowing in the left ICA by Doppler velocity criteria. Moderate mixed plaquing. <Electronically signed by Dixon Molina > 09/07/20 [id number]
== END ==
LOC: M RAD 13:52
PROVIDERS: ATTEND Internal Medicine
DX: I65.23 Occlusion and stenosis of bilateral carotid arteries (principal)

== ENCOUNTER → 2020-09-25 | Outpatient (CLI) | payer MEDICARE ==
--- NOTE | 2020-09-25 09:29 | REPMRS ---
Patient History The patient states she has not had a clinical breast exam in over a year. Family history of unknown cancer in sister, endometrial cancer in maternal grandmother. Best views possible due to bilateral shoulder injuries No breast complaints or changes today Patient signed the MRS sheet 1st covid vaccine 05/04/20-right arm-Moderna 2nd covid vaccine 06/07/20-left arm Priors done @ [facility] Patient Identification Verified Digital Woman Screen Mammo: September 25, 2020 - Exam #: [id number] Bilateral CC and MLO view(s) were taken. Technologist: Aura Loya, Technologist Prior study comparison: November 12, 2018, bilateral digital mammo screening bilat, performed at [facility]. October 10, 2017, bilateral digital mammo screening bilat, performed at [facility]. July 04, 2016, bilateral digital mammo screening bilat, performed at [facility] [employer]. FINDINGS: The breast tissue is heterogeneously dense. This may lower the sensitivity of mammography. The Volpara volumetric breast density category is: C. There is a moderate amount of heterogeneously dense fibroglandular tissue which is fairly symmetric. There is no interval development of dominant mass, architectural distortion, or grouped microcalcification typical of malignancy. There has been no change in the appearance of the mammogram from the prior studies. 3-D tomosynthesis shows no additional findings. Assessment: BI-RADS/ACR category 1 mammogram. Negative Mammogram. Recommendation Routine screening mammogram of both breasts in 1 year (for women over age 40). This patient's [facility] Lifetime Breast Cancer RIsk is estimated at 2.5 %. This mammogram was interpreted with the aid of an FDA-approved computer-aided dectection system. Electronically Signed By: Dixon Molina MD 09/25/20 0928
== END ==
LOC: M WHC 07:41
PROVIDERS: ATTEND Internal Medicine
DX: Z12.31 Encounter for screening mammogram for malignant neoplasm of breast (principal); Z80.49 Family history of malignant neoplasm of other genital organs

== ENCOUNTER → 2020-10-23 | Outpatient (CLI) | payer MEDICARE ==
[2020-10-23 13:18] LABS: BILIRUBIN,DIRECT 0.2 MG/DL (0.0-0.2); BILIRUBIN,TOTAL 0.7 MG/DL (0.2-1.0); TOTAL PROTEIN 6.8 GM/DL (6.4-8.2)
== END ==
LOC: M LAB 12:08
PROVIDERS: ATTEND Internal Medicine Gastroenterology
DX: R10.13 Epigastric pain (principal); R19.4 Change in bowel habit

== ENCOUNTER → 2020-10-27 | Outpatient (REF) | payer MEDICARE | LOC: M LAB REF 09:09 | PROVIDERS: ATTEND Internal Medicine Gastroenterology | DX: R10.13 Epigastric pain (principal) ==

== ENCOUNTER → 2020-11-16 | Outpatient (CLI) | payer MEDICARE ==
--- NOTE | 2020-11-16 14:13 | REP ---
INDICATION: R93.2 ABN FINDING LIVER BILIARY TRACT DILATED CBD. COMPARISON: CT 07/10/2020. TECHNIQUE: Multiple heavily T2 weighted sequences are obtained in the axial and coronal planes. 3D MIP reconstruction images are performed. FINDINGS: There is no intrahepatic biliary dilatation. There is no gross biliary stricture and no focal dilatation. Common bile duct is mildly dilated as suggested on the prior CT scan, it has a maximum diameter of approximately 9 mm. Pancreatic duct is normal in caliber. Gallbladder is moderately distended with no wall thickening or edema. No internal filling defect or gallstone is seen. There is no evidence of choledocholithiasis. Cystic structures are again seen superiorly in the left lobe of the liver, at the dome. The spleen, adrenals, pancreas and kidneys are grossly unremarkable. I see no adenopathy or free fluid in the abdomen. IMPRESSION: Slightly dilated common bile duct is unchanged measuring approximately 9 mm. No evidence of cholelithiasis or choledocholithiasis. No definite biliary stricture is seen. There are liver cysts again noted. <Electronically signed by Norberto Fernando > 11/16/20 1615
== END ==
LOC: M RAD 12:52
PROVIDERS: ATTEND Internal Medicine Gastroenterology
DX: R93.2 Abnormal findings on diagnostic imaging of liver and biliary tract (principal); K76.89 Other specified diseases of liver

== ENCOUNTER → 2020-12-30 | Outpatient (CLI) | payer MEDICARE ==
[~2020-12-30] MED LIST changes: +FAMO40TA3 PO; +NOXI1TAB PO; +OMEP40CA4 PO; +PROL60SO SC
== END ==
LOC: M LABSMTC 11:35
PROVIDERS: ATTEND Anesthesiology
DX: Z01.812 Encounter for preprocedural laboratory examination (principal); Z20.822 Contact with and (suspected) exposure to COVID-19

== ENCOUNTER 2021-01-04 09:35 | Day surgery (SDC) | payer MEDICARE ==
[~2021-01-04] VITALS: Ht 165.1 cm; Wt 58.1 kg
[~2021-01-04 09:35] MED LIST changes: +NS 1,000 ML IV ONE
--- OUTSIDE RECORDS SUMMARY | 2021-01-04 09:41 | CCD | Continuity of Care Document ---
Author Author Stephenie CHAND MD Organization Unknown Address [address] [place] [address] Phone [phone] Care Team Providers Care Datastage Developer Name Role Phone Aries Raya MD @ [facility] AUTM Yobany Wesley AUTM [phone] Madhavi Grace AUTM Audi Lindsay M.D. AUTM [phone] Problems Description No Information Available Social History Type Date Description Comments Sex Unknown ETOH Use Occasionally consumes alcohol 1 glass of wine 2-3 x a week Tobacco Use Start: Unknown End: Unknown Patient is a former smoker 1 ppd for 10 years quit 1997 Recreational Drug Use Denies Drug Use Allergies, Adverse Reactions, Alerts Description No Known Drug Allergies Medications Active Medications SIG Qnty Indications Ordering Provide r Date Famotidine 40mg Tablets 1 by mouth twice a day 60tabs Audi Lindsay JR, MD 07/17/2020 Gabapentin 300mg Capsules 1 t id Unknown Harrison-3 Fish Oil 1000mg Capsules 1 qd Unknown Probiotic Capsules 1 qd Unknown Calcium 500MG 3 tabs qd Unknown Multivitamin W/ Vitamin D3 2000 Iu 1 qd U nknown Glucosamine Chondroitin 1500 Complex 1500Com Capsules 3 tabs qd Unknown Coenzyme Q10 100mg Capsules 1 qd Unknown Turmeric Curcumin Capsules 1 qd Unknown Tylenol 8 Hour Arthritis Pain 650mg Tablets ER 2 by mouth qd Unknown Ultimate Eye Support 12MG Luteins/6MG Zeaxanthins 1 qd Unknown [place] [employer] 500-32.5mg Table ts 2 tabs as needed for pain Unknown 00 Prolia 60mg/ml Soln Prefill Syring e Inject 60 MG Under The Skin Every 6 Months Unknown Immunizations Description No Information Available Vital Signs Date Vital Result Comment 10/23/2020 8:53am BP Systolic 161 mmHg BP Diastolic 91 mmHg Height 67 inches 5'7" Weight 150.00 lb BMI (Body Mass Index) 23.5 kg/m2 [place] Body Weight 135 lb Weight 68.040 kg BSA (Body Surface Area) 1.79 m2 07/17/2020 9:22am BP Systolic 175 mmHg BP Diastolic 75 mmHg Height 67 inches 5'7" Weight 140.50 lb BMI (Body Mass Index) 22.0 kg/m2 [place] Body Weight 135 lb Weight 63.731 kg BSA (Body Surface Area) 1.74 m2 Results Description No Information Available Procedures Date Code Description Status 10/23/2020 39737 Office/Outpatient New Moderate M DM 45-59 Minutes Completed 07/17/2020 83171 Office/Outpatient New Low MDM 30 -44 Minutes Completed Medical Devices Description No Information Available Encounters Type Date Location Provider Dx Diagnosis Office Visit 10/23/2020 9:00a [facility] Gastroenterology [facility] ctice Adam Chand MD R10.13 Epigastric pain R19.4 Change in bowel habit R93.2 Abnormal findings on dx imag ing of liver and biliary tract K82.8 Other specified diseases of gallbladder Office Visit 07/17/2020 9:15a [facility] Audi moreland JR, MD R93.2 Abnormal findings on dx imaging of liver and biliary tract R10.13 Epigastric pain R19.4 Change in bowel habit K62.5 Hemorrhage of anus and rectu m Assessments Date Code Description Provider 10/23/2020 R10.13 Epigastric pain Adam Chand MD 10/23/2020 R19.4 Change in bowel habit Adam cook MD 10/23/2020 R93.2 Abnormal findings on diagnostic imaging of liver and biliary tract Adam Chand MD 10/23/2020 K82.8 Other specified diseases of gall bladder Adam Chand MD 07/17/2020 R93.2 Abnormal findings on diagnostic imaging of liver and biliary tract Audi Lindsay JR, MD 07/17/2020 R10.13 Epigastric pain Audi Lindsay JR, MD 07/17/2020 R19.4 Change in bowel habit Audi lakhani JR, MD 07/17/2020 K62.5 Hemorrhage of anus and rectum Jacqueline Lindsay JR, MD Plan of Treatment 10/23/2020 - Adam Chand MD* R10.13 Epigastric pain * R19.4 Change in bowel habit * R93.2 Abnormal findings on diagnostic imaging of liver and biliary tract * K82.8 Other specified diseases of gallbladder * * New Labs:* Liver Profile, Ordered: 10/23/20 * Gastrointestinal (GI) Panel, Ordered: 10/23/20 * Pancreatic Elastase Stool Sendout, Ordered: 10/23/20 * Recommendations:* 1) Laxative regimen for likely IBS-C. Use Miralax daily (not PRN) 2) Stool testing 3) MRCP of bile duct. will also do liver enzymes. 4) EGD and Colonoscopy fror rectal bleeding and epigastric pain. Functional Status Description No Information Available Mental Status Description No Information Available Referrals Refer to Dr Reason for Referral Status Appt Date Adam Chand M.D. ABD PAIN, DIARRHEA, RECTAL BLEEDING Sched ed 10/23/2020 [facility], Gastroenterology [address], [address] [place], [place] [address] [phone] Audi Lindsay JR, MD RIGHT UPPER QUARANT PAIN Scheduled 10/23/2020 [address] [place] [address] [phone]
--- OUTSIDE RECORDS SUMMARY | 2021-01-04 09:41 | CCD | Continuity of Care Document ---
Author Author Stephenie CASAS DO Organization Unknown Address [address] [place] [address] Phone [phone] Care Team Providers Care Engineer Rf Deployment Name Role Phone Aries Casas JR, MD AUTM Unavailable [facility] AUTM [phone] Kelby Kuhn MD AUTM [phone] Wiley Young MD AUTM [phone] Problems Active Problems Provider Date Gastroesophageal reflux disease Aries Casas MD Onset: 06/20/2011 Osteoporosis Aries Casas MD Onset: 06/20/2011 Low back pain Aries Casas MD Onset: 06/20/2011 Pure hypercholesterolemia Aries Casas MD Onset: 06/19 Mitral valve disorder Aries Casas MD Onset: 8 Social History Type Date Description Comments Sex Unknown ETOH Use Occasionally consumes wine no mo re than 2-4 alcoholic beverages in an average week Tobacco Use Start: Unknown End: Unknown Patient is a former smoker smoked for 15 yrs , 1 evaristo a day. She quit smoking cigarettes in 2001 Allergies and adverse reactions Description No Known Drug Allergies Medications Active Medications SIG Qnty Indications Ordering Provide r Date Famotidine 40mg Tablets 1 by mouth twice a day 90tabs Aries Casas MD 12/01/2020 Prolia 60mg/ml Soln Prefill Syring e Inject Under The Skin Every 6 Months 1units Aries Casas MD 06/16/2019 Stool Softener 100mg Capsules 1 by mouth twice a day Aries Casas MD 08/28/2018 Coq10 Maximum Strength 400mg Capsu les by mouth daily Aries Casas MD 08/28/2018 Probiotic Capsules every day Aries Casas MD 08/28/2018 Glucosamine 1500 Complex 1500Com C apsules one daily, otc Aries Casas MD 08/28/2018 Fish Oil 1000mg Capsules 1 by mouth every day Aries Casas MD 08/28/2018 Shingrix 50mcg Suspension Rec administer 0.5 milliliters intramuscular, repeat in 2 to 6 months 2units Aries Casas MD 08/27/2017 Vitamin D3 2000Unit Capsules 1 po qd Areis Casas MD 06/20/2011 Gabapentin 300mg Capsules Take 1 Capsule By Mouth 3 Times Daily 270caps Aries Casas MD Calcium 1500mg Unknown Tylenol Extra Strength 500mg Table ts 2 pills 3x/d Unknown Biotin 10mg Capsules 1 daily at 10pm Unknown Medications Administered in Office Medication SIG Qnty Indications Ordering Provider Date Prolia (denosumab) 60mg,SC injection, ND C#[id number] Injection Nurse Schedul e 07/10/2020 Therapeutic Injection Injection Nurse Schedule 07/10/2020 Covid-19 vaccine, Unspecified Inj ection Unknown 06/07/2020 Covid-19 vaccine, Unspecified Inj ection Unknown 05/04/2020 Prolia (denosumab) 60mg,SC injection, ND C#[id number] Injection Nurse Schedul e 01/27/2020 Therapeutic Injection Injection Nurse Schedule 01/27/2020 Administration Of Flu Vaccine Inj ection Aries Casas MD 01/20/2020 Prolia (denosumab) 60mg,SC injection, ND C#[id number] Injection Aries desouza MD 07/22/2019 Therapeutic Injection Injection Nurse Schedule 07/22/2019 Administration Of Flu Vaccine Inj ection Aries Casas MD 01/19/2019 Administration Of Flu Vaccine Inj ection JERRI Gaona 12/24/2017 Administration Of Flu Vaccine Inj ection Jamee Rios, COMPA 01/03/2016 Administration Of Flu Vaccine Inj ection Aries Casas MD 01/26/2015 Administration Of Flu Vaccine Inj ection Aries Casas MD 01/20/2014 Administration Of Flu Vaccine Inj ection Aries Casas MD 12/09/2012 Administration Of Flu Vaccine Inj ection Aries Casas MD 01/14/2011 Immunizations CPT Code Status Date Vaccine Lot # [id number] Given 01/20/2020 Influenza Vaccin e Quadrivalent Preser/Antibiotic Free Im Use 35576 Given 01/20/2020 Influenza Vaccin e Quadrivalent Preser/Antibiotic Free Im Use [id number] 70045 Given 01/19/2019 Influenza Vaccin e Quadrivalent Preser/Antibiotic Free Im Use [id number] 13679 Given 12/24/2017 Influenza Virus Vaccine, Quadrivalent ([id number]), Derived From 7 Given 08/27/2017 Pneumovax 23 [id number] U-PneuC Given 08/28/2016 Prevnar 13 Q2037 Given 01/03/2016 Fluvirin Virus Vaccine 84056 01 Q2037 Given 01/26/2015 Fluvirin Virus Vaccine 98064 01 Q2037 Given 01/20/2014 Fluvirin Virus Vaccine 81809 01 Q2037 Given 12/09/2012 Fluvirin Virus Vaccine 02221 Given 06/22/2012 Zoster Vaccine [id number] Q2037 Given 01/14/2011 Fluvirin Virus Vaccine 78631 Given 01/14/2011 Pneumovax 23 Vital Signs Date Vital Result Comment 01/02/2021 7:57am BP Systolic 130 mmHg BP Diastolic 82 mmHg Heart Rate 71 /min Height 66 inches 5'6" Weight 132.00 lb O2 % BldC Oximetry 97 % BMI (Body Mass Index) 21.3 kg/m2 09/01/2020 7:43am BP Systolic 128 mmHg BP Diastolic 70 mmHg Heart Rate 68 /min Height 66 inches 5'6" Weight 136.12 lb O2 % BldC Oximetry 97 % RM Air BMI (Body Mass Index) 22.0 kg/m2 Results Test Acquired Date Facility Test Result H/L Range Note Coronavirus 2019 Nasopharygeal 12/30/2020 [facility] [address] [place] [address] [phone] Coronavirus 2019 Nasopharygeal ASSAY INFORMATIO <SEE N OTE> 1 Liver Profile 10/23/2020 [facility] nter [address] [place] [address] [phone] Ast/Sgot 18 U/L Normal 7-37 Alt/SGPT 22 U/L Normal 12-78 Alkaline Phosphatase 50 U/L Normal 45-117 Bilirubin,Total 0.7 mg/dL Normal 0.2-1.0 Bilirubin,Direct 0.2 mg/dL Normal 0.0-0.2 Total Protein 6.8 GM/DL Normal 6.4-8.2 Albumin 4.0 GM/DL Normal 3.2-5.2 Albumin/Globulin Ratio 1.4 Normal 1.2-2.2 Laboratory test finding 10/23/2020 [facility] [address] [place] [address] [phone] Immunoglobulin A 117.0 mg/dL Normal 70-400 Tissue Transglutaminase IgA <2 U/mL Normal 0-3 2 Complete Blood Count 08/30/2020 [facility] Rn Hospice: [place] [address] [phone] WBC 5.8 x10*3/UL 4.1 - 10.9 RBC 4.45 x10*6/UL 4.20 - 6.30 Hemoglobin 12.7 g/dL 12.0 - 18.0 Hematocrit 37.6 % 37.0 - 51.0 MCV 84.3 fL 80.0 - 97.0 MCH 28.5 pg 26.0 - 32.0 MCHC 33.8 g/dL 31.0 - 38.0 RDW 13.7 % 11.6 - 13.7 PLT 349 x10*3/UL 140 - 440 MPV 7.8 FL 7.8 - 11.0 Lymph % 32.3 % 10.0 - 58.5 Mid % 6.6 % 1.7 - 9.3 Neut % 61.1 % 37.0 - 92.0 Lymph # 1.8 x10*3/UL 0.6 - 4.1 Mid # 0.5 x10*3/UL 0.1 - 0.6 Neut # 3.5 x10*3/UL 2.0 - 7.8 Comprehensive Chem Profile 08/30/2020 [facility] H[facility]ice: [place] [address] [phone] Glucose 84 mg/dL 74 - 99 3 BUN 16 mg/dL 7 - 18 Creatinine 0.7 mg/dL 0.6 - 1.3 Sodium 144 mEq/L 136 - 145 Potassium 4.4 mEq/L 3.5 - 5.1 Chloride 106 mEq/L 98 - 107 Carbon Dioxide 31 mEq/L 21 - 32 Calcium 9.6 mg/dL 8.5 - 10.1 Alk. Phosphatase 47 mg/dL 46 - 116 Total Bilirubin 0.7 mg/dL 0.2 - 1.0 Ast (Sgot) 20 U/L 15 - 37 Alt (SGPT) 18 U/L 12 - 78 Albumin 4.1 g/dL 3.4 - 5.0 Total Protein 6.9 g/dL 6.4 - 8.2 A/G Ratio 1.46 CALC 1.00 - 1.90 GFR >= 60 mL/min >60 GFR >= 60 mL/min >60 4 Lipid Profile 08/30/2020 [facility]: Dr Aries Casas [place] [id number] [phone] Cholesterol 233 mg/dL High 131 - 200 Triglycerides 56 mg/dL 30 - 150 HDL Cholesterol 81 mg/dL High 35 - 60 LDL (Calculated) 141 CALC 50 - 159 Laboratory test finding 08/30/2020 [facility] R[facility] Hospice: Dr Aries Casas [place] [id number] [phone] Thyroid Stimulating Hormone 2.12 uIU/mL 0.3 6 - 3.74 Laboratory test finding 08/30/2020 [facility] Rn Hospice: Dr [place] [id number] [phone] Vitamin D 25-Hydroxy 56.6 ng/ml 24.0 - 80.0 5 1 ASSAY INFORMATION: Real Time RT-PCR NOTE: The COVID-19 assay has been cleared by the U.S. Food and Drug Administration under the Emergency Use Authorization (EUA). [facility] and [facility] are designated as high complexity laboratories by the Clinical Laboratory Improvement Amendments of 1988(CLIA) and are qualified to perform this test. Not Detected 2 Negative 0 - 3 Weak Positive 4 - 10 Positive >10 . Tissue Transglutaminase (tTG) has been identified as the endomysial antigen. Studies have demonstr- ated that endomysial IgA antibodies have over 99% specificity for gluten sensitive enteropathy. Performed at: RN - [facility] [address] [id number] Rn Hospice: Mary Lou Henderson MD, Phone: [phone] 3 100-125 mg/dL PRE-DIABET ES/FASTING >126 mg/dL DIABETES/FASTING 4 CHRONIC KIDNEY DISEASE STAGI NG PER NKF STAGE I & II GFR >= 60 NORMAL TO MILDLY DECREASED STAGE III GFR 30-59 MODERATELY DECREASED STAGE IV GFR 15-29 SEVERELY DECREASED STAGE V GFR <15 VERY LITTLE GFR LEFT ESRD GFR <15 ON BOXING INSTRUCTOR 5 This test was performed [employer] Vitamin D immunoassay kit. Values obtained with different assay methods should not be used interchangeably. Procedures Date Code Description Status 09/25/2020 [id number] Mammogram Completed 09/01/2020 59825 EKG/Interpretation & Report Comp leted 09/01/2020 72853 Office/Outpatient Established Mo d MDM 30-39 Min Completed 07/10/2020 93034 Therapeutic Injection Completed 02/10/2019 [id number] Bone Mineral Density Test Comple megan 11/12/2018 [id number] Mammogram Completed 09/07/2018 [id number] Colonoscopy Completed 10/10/2017 [id number] Bone Mineral Density Test Comple megan 10/10/2017 [id number] Mammogram Completed 10/04/2016 [id number] Bone Mineral Density Test Comple megan 07/04/2016 [id number] Mammogram Completed 02/01/2015 [id number] Mammogram Completed 10/27/2013 [id number] Bone Mineral Density Test Comple megan 01/05/2013 40199167 Mammogram Completed 2011 [id number] Colonoscopy Completed 07/11/2011 [id number] Mammogram Completed 01/14/2011 [id number] Bone Mineral Density Test Comple megan 06/13/2010 [id number] Mammogram Completed 12/07/2008 [id number] Mammogram Completed 12/07/2008 [id number] Bone Mineral Density Test Comple megan 11/03/2008 [id number] Colonoscopy Completed Medical Devices Description No Information Available Encounters Type Date Location Provider Dx Diagnosis Office Visit 09/01/2020 [facility] R10[facility]13 Epigastric pain R63.4 Abnormal weight loss M81.0 Age-related osteoporosis w/o current pathological fracture E55.9 Vitamin D deficiency, unspec ified E78.00 Pure hypercholesterolemia, u nspecified H40.9 Unspecified glaucoma Z13.89 Encounter for screening for other disorder Assessments Date Code Description Provider 09/01/2020 R10.13 Epigastric pain Aries rachel MD 09/01/2020 R63.4 Abnormal weight loss Aries Casas MD 09/01/2020 M81.0 Age-related osteoporosis without current pathological fracture Aries Casas MD 09/01/2020 E55.9 Vitamin D deficiency, unspecifie d Aries Casas MD 09/01/2020 E78.00 Pure hypercholesterolemia, unspe cified Aries Casas MD 09/01/2020 H40.9 Unspecified glaucoma Aries Casas MD 09/01/2020 Z13.89 Encounter for screening for othe r disorder Aries Casas MD 08/30/2020 E78.00 Pure hypercholesterolemia, unspe cified Aries Casas MD 08/30/2020 E78.00 Pure hypercholesterolemia, unspe cified Lab Schedule 08/30/2020 K21.9 Gastro-esophageal reflux disease without esophagitis Aries Casas MD 08/30/2020 K21.9 Gastro-esophageal reflux disease without esophagitis Lab Schedule 08/30/2020 E55.9 Vitamin D deficiency, unspecifie d Aries Casas MD 08/30/2020 E55.9 Vitamin D deficiency, unspecifie d Lab Schedule 07/10/2020 M81.0 Age-related osteoporosis without current pathological fracture Aries Casas MD 07/10/2020 M81.0 Age-related osteoporosis without current pathological fracture Nurse Schedule Plan of Treatment Future Appointment(s):* 01/11/2021 9:00 am - Nurse Schedule at [facility] * 08/21/2021 8:10 am - Lab Schedule at [facility] * 08/22/2021 8:20 am - Aries Casas MD at [facility] * 08/22/2021 8:00 am - Nurse #2 at [facility] Functional Status Description No Information Available Mental Status Description No Information Available Referrals Refer to Reason for Referral Status Appt Date Adam Milian MD CONSULT FOR EVALUATION OF GLAUCOMA Creat ed [place] [facility] [address], [address] [place] [id number] [phone]
--- OUTSIDE RECORDS SUMMARY | 2021-01-04 09:41 | CCD | Continuity of Care Document ---
Author Author Stephenie DEGROOT MD Organization Unknown Address [address] [place] [address] Phone [phone] Care Team Providers Care Fan Balancer Name Role Phone Aries Raya MD @ [facility] Int AUTM Yobany Wesley AUTM [phone] Madhavi Grace AUTM Audi Lindsay M.D. AUTM [phone] Problems Description No Information Available Social History [...] SIG Qnty Indications Ordering Provide r Date Magnesium Citrate 1.745GM/30ML Renetta ution one 10 oz bottle green or clear only, use for additional prep at 2-3 days before procedure 296ml Adam Degroot MD 10/23/2020 Miralax 17GM/Scoop Powder use as directed see dr degroot colon preparation instructions 510gm Jaziel id MD Mannie 10/23/2020 Famotidine 40mg Tablets 1 by mouth twice a day 60tabs Audi Lindsay JR, MD 07/17/2020 Gabapentin 300mg Capsules 1 t id Unknown [place]-3 Fish Oil 1000mg Capsules 1 qd Unknown [...] lb BMI (Body Mass Index) 23.5 kg/m2 [place] Body Weight 135 lb Weight 68.040 kg BSA (Body Surface Area) 1.79 m2 07/17/2020 9:22am BP Systolic 175 mmHg BP Diastolic 75 mmHg Height 67 inches 5'7" Weight 140.50 lb BMI (Body Mass Index) 22.0 kg/m2 [place] Body Weight 135 lb Weight 63.731 kg BSA (Body Surface Area) 1.74 m2 Results Test Acquired Date Facility Test Result H/L Range Note Liver Profile 10/23/2020 [facility] Main Lab [address] [place] [address] [id number] [phone] Ast/Sgot 18 U/L Normal 7-37 Alt/SGPT 22 U/L Normal 12-78 Alkaline Phosphatase 50 U/L Normal 45-117 Bilirubin,Total 0.7 mg/dL Normal 0.2-1.0 Bilirubin,Direct 0.2 mg/dL Normal 0.0-0.2 Total Protein 6.8 GM/DL Normal 6.4-8.2 Albumin 4.0 GM/DL Normal 3.2-5.2 Albumin/Globulin Ratio 1.4 Normal 1.2-2.2 Laboratory test finding 10/23/2020 [facility] Main Lab [address] [place], [place] [id number] [phone] Tissue Transglutaminase IgA <2 U/mL Normal 0-3 1 Immunoglobulin A 117.0 mg/dL Normal 70-400 1 Negative 0 - 3 Weak Positive 4 - 10 Positive >10 . Tissue Transglutaminase (tTG) has been identified as the endomysial antigen. Studies have demonstr- ated that endomysial IgA antibodies have over 99% specificity for gluten sensitive enteropathy. Performed at: - [facility] [address] [id number] Sap Developer: Mary Lou Henderson MD, Phone: [phone] Procedures Date Code Description Status 10/23/2020 99543 Office/Outpatient New Moderate M DM 45-59 Minutes Completed 07/17/2020 70064 Office/Outpatient New Low MDM 30 -44 Minutes Completed Medical Devices Description No Information Available Encounters Type Date Location Provider Dx Diagnosis Office Visit 10/23/2020 9:00a [facility] Gastroenterology [facility] Adam Degroot MD R10.13 Epigastric pain R19.4 Change in bowel habit R93.2 Abnormal findings on dx imag ing of liver and biliary tract Office Visit 07/17/2020 9:15a [facility] Practice Audi moreland JR, MD R93.2 Abnormal findings on dx imaging of liver and biliary tract R10.13 Epigastric pain R19.4 Change in bowel habit K62.5 Hemorrhage of anus and rectu m Assessments Date Code Description Provider 10/23/2020 R10.13 Epigastric pain Adam Degroot MD 10/23/2020 R19.4 Change in bowel habit Adam cook MD 10/23/2020 R93.2 Abnormal findings on diagnostic imaging of liver and biliary tract Adam Degroot MD 07/17/2020 R93.2 Abnormal findings on diagnostic imaging of liver and biliary tract Audi Lindsay JR, MD 07/17/2020 R10.13 Epigastric pain Audi Lindsay JR, MD 07/17/2020 R19.4 Change in bowel habit Audi lakhain JR, MD 07/17/2020 K62.5 Hemorrhage of anus and rectum Jacqueline Lindsay JR, MD Plan of Treatment 10/23/2020 - Adam Degroot MD* R10.13 Epigastric pain * R19.4 Change in bowel habit * R93.2 Abnormal findings on diagnostic imaging of liver and biliary tract * * New Labs:* Gastrointestinal (GI) Panel, Ordered: 10/23/20 * Pancreatic Elastase Stool Sendout, Ordered: 10/23/20 * New Orders:* EGD and Colonoscopy, Ordered: 10/23/20 * Comments:* Pt with change in bowels from baseline constipation to secere diarrhea with blood at times since march 2020. SAHe had CT A/P showing modreate/large stool, dilated CBD without IHD dil. US showing same dilaterd Bile duct withgout intrtahepatic ductal dil. * Recommendations:* 1) Laxative regimen for likely IBS-C. Use Miralax daily (not PRN) 2) Stool testing 3) MRCP of bile duct. will also do liver enzymes. 4) EGD and Colonoscopy fror rectal bleeding and epigastric pain. Functional Status Description No Information Available Mental Status Description No Information Available Referrals Refer to Reason for Referral Status Appt Date Adam Degroot M.D. ABD PAIN, DIARRHEA, RECTAL BLEEDING Sched ed 10/23/2020 [facility], Gastroenterology [address], [address] [place] [address] [phone] Audi Lindsay JR, MD RIGHT UPPER QUARANT PAIN Scheduled 10/23/2020 [address] [place] [address] [phone]
--- OUTSIDE RECORDS SUMMARY | 2021-01-04 09:41 | CCD | Continuity of Care Document ---
Author Author Stephenie DEGROOT MD Organization Unknown Address [address] [place] [address] Phone [phone] Care Team Providers Care General Magistrate Name Role Phone Aries Raya MD @ [facility] Int AUTM Yobany Wesley AUTM [phone] Madhavi Grace AUTM Audi Lindsay M.D. AUTM [phone] Problems Description No Information Available Social History [...] prep at 2-3 days before procedure 296ml Juani Degroot MD 10/23/2020 Miralax 17GM/Scoop Powder use as directed see dr degroot colon preparation instructions 510gm Jaziel id MD Mannie 10/23/2020 Famotidine 40mg Tablets 1 by mouth twice a day 60tabs Audi Lindsay JR, MD 07/17/2020 Gabapentin 300mg Capsules 1 t id Unknown [place]-3 Fish Oil 1000mg Capsules 1 qd Unknown [...] lb BMI (Body Mass Index) 23.5 kg/m2 [place] Body Weight 135 lb Weight 68.040 kg BSA (Body Surface Area) 1.79 m2 07/17/2020 9:22am BP Systolic 175 mmHg BP Diastolic 75 mmHg Height 67 inches 5'7" Weight 140.50 lb BMI (Body Mass Index) 22.0 kg/m2 [place] Body Weight 135 lb Weight 63.731 kg BSA (Body Surface Area) 1.74 m2 Results Test Acquired Date Facility Test Result H/L Range Note Gastrointestinal (GI) Panel 10/27/2020 [facility] Main Lab [address] [place] [address] [id number] [phone] Gastrointestinal (GI) Panel This Gastrointes <SEE NOTE > 1 Laboratory test finding 10/27/2020 [facility] Main Lab [address] [place] [address] [id number] [phone] Pancreatic Elastase Stool >500 Normal >200 2, 3 Liver Profile 10/23/2020 [facility] Main Lab [address] [place] [address] [id number] [phone] Ast/Sgot 18 U/L Normal 7-37 Alt/SGPT 22 U/L Normal 12-78 Alkaline Phosphatase 50 U/L Normal 45-117 Bilirubin,Total 0.7 mg/dL Normal 0.2-1.0 Bilirubin,Direct 0.2 mg/dL Normal 0.0-0.2 Total Protein 6.8 GM/DL Normal 6.4-8.2 Albumin 4.0 GM/DL Normal 3.2-5.2 Albumin/Globulin Ratio 1.4 Normal 1.2-2.2 Laboratory test finding 10/23/2020 [facility] Main Lab [address] [place] [address] [phone] Tissue Transglutaminase IgA <2 U/mL Normal 0-3 4 Immunoglobulin A 117.0 mg/dL Normal 70-400 5 1 This Gastrointestinal PCR Pa vance detects the following bacteria, parasites and viruses: Campylobacter (jejuni, coli and upsaliensis), Clostridium difficile (toxin A/B), Plesiomonas shigelloides, Salmonella, Yersinia enterocolitica, Vibrio (parahaemolyticus, vulnificus and cholerae), Vibrio clolerae, Enteroaggregative E. coli (EAEC), Enteropathogenis E. coli (EPEC), Enterotoxigenic E. coli (ETEC) it/st, Shiga-like producing E. coli (STEC) stx1/stc2, E.coli O157, Shigella/Enteroinvasive E. coli (EIEC), Cryptosporidium, Cyclospora cayetanensis, Entamoeba histolytica, Giardia lamblia, Adenovirus F 40/41, Astrovirus, Norovirus GI/GII, Rotavirus A and Sapovirus (I, II, IV, V). One negative specimen does not rule out the possibility of a parasitic infection. NEGATIVE by MULTIPLEXED NUCLEIC ACID PCR 2 Result Units: ug Elast./g Severe Pancreatic Insufficiency: <100 Moderate Pancreatic Insufficiency: 100 - 200 Normal: >200 Performed at: [address] [id number] [employer] Associate: Adalid Stevens MD, Phone: [phone] 11/20/20 (FriNov 20) 06:45 PM JUANI DEGROOT normal 4 Negative 0 - 3 Weak Positive 4 - 10 Positive >10 . Tissue Transglutaminase (tTG) has been identified as the endomysial antigen. Studies have demonstr- ated that endomysial IgA antibodies have over 99% specificity for gluten sensitive enteropathy. Performed at: [address] [id number] [employer] Associate: Mary Lou Henderson MD, Phone: [phone] 11/20/20 (FriNov 20) 06:44 PM JUANI DEGROOT normal Procedures Date Code Description Status 10/23/2020 22654 Office/Outpatient New Moderate M DM 45-59 Minutes Completed 07/17/2020 30828 Office/Outpatient New Low MDM 30 -44 Minutes Completed Medical Devices Description No Information Available Encounters Type Date Location Provider Dx Diagnosis Office Visit 10/23/2020 9:00a [facility] Gastroenterology [facility] ctice Juani Degroot MD R10.13 Epigastric pain R19.4 Change in bowel habit R93.2 Abnormal findings on dx imag ing of liver and biliary tract Office Visit 07/17/2020 9:15a [facility] Surgery Practice Audi moreland JR, MD R93.2 Abnormal findings on dx imaging of liver and biliary tract R10.13 Epigastric pain R19.4 Change in bowel habit K62.5 Hemorrhage of anus and rectu m Assessments Date Code Description Provider 10/23/2020 R10.13 Epigastric pain Juani Degroot MD 10/23/2020 R19.4 Change in bowel habit Juani cook MD 10/23/2020 R93.2 Abnormal findings on diagnostic imaging of liver and biliary tract Juani Degroot MD 07/17/2020 R93.2 Abnormal findings on diagnostic imaging of liver and biliary tract Audi Lindsay JR, MD 07/17/2020 R10.13 Epigastric pain Audi Lindsay JR, MD 07/17/2020 R19.4 Change in bowel habit Audi lakhani JR, MD 07/17/2020 K62.5 Hemorrhage of anus and rectum Jacqueline Lindsay JR, MD Plan of Treatment 10/23/2020 - Juani Degroot MD* R10.13 Epigastric pain * R19.4 Change in bowel habit * R93.2 Abnormal findings on diagnostic imaging of liver and biliary tract * * New Orders:* EGD and Colonoscopy, Ordered: [...] Dr Reason for Referral Status Appt Date Juani Degroot M.D. ABD PAIN, DIARRHEA, RECTAL BLEEDING Sched ed 10/23/2020 [facility], Gastroenterology [address] [place] [address], [address] [place], [place] [id number] [phone] Audi Lindsay JR, MD RIGHT UPPER QUARANT PAIN Closed 10/23/[address] [place] [address] [address] [place] [address] [phone]
--- OUTSIDE RECORDS SUMMARY | 2021-01-04 09:41 | CCD | Continuity of Care Document ---
Author Organization Unknown Address Unknown Phone Unavailable Care Team Providers Care Computational Scientist Name Role Phone Aries Raya JR, MD AUTM Unavailable [facility] [place] AUTM [phone] Kelby Kuhn MD AUTM [phone] Wiley Young MD AUTM [phone] Problems Active Problems Provider Date Gastroesophageal reflux disease Aries Raya MD Onset: 06/20/2011 Osteoporosis Aries Raya MD Onset: 06/20/2011 Low back pain Aries Raya MD Onset: 06/20/2011 Pure hypercholesterolemia Aries Raya MD Onset: 06/19 Mitral valve disorder Aries Raya MD Onset: 8 Social History Type Date [...] by mouth twice a day 90tabs Aries Raya MD 12/01/2020 Prolia 60mg/ml Soln Prefill Syring e Inject Under The Skin Every 6 Months 1units Aries Raya MD 06/16/2019 Stool Softener 100mg Capsules 1 by mouth twice a day Aries Raya MD 08/28/2018 Coq10 Maximum Strength 400mg Capsu les by mouth daily Aries Raya MD 08/28/2018 Probiotic Capsules every day Aries Raya MD 08/28/2018 Glucosamine 1500 Complex 1500Com C apsules one daily, otc Aries Raya MD 08/28/2018 Fish Oil 1000mg Capsules 1 by mouth every day Aries Raya MD 08/28/2018 Shingrix 50mcg Suspension Rec administer 0.5 milliliters intramuscular, repeat in 2 to 6 months 2units Aries Raya MD 08/27/2017 Vitamin D3 2000Unit Capsules 1 po qd Aries Raya MD 06/20/2011 Gabapentin 300mg Capsules Take 1 Capsule By Mouth 3 Times Daily 270caps Aries Raya MD Calcium 1500mg Unknown Tylenol Extra Strength 500mg Table ts 2 pills 3x/d Unknown Biotin 10mg Capsules 1 daily at 10pm Unknown Medications Administered in Office Medication SIG Qnty Indications Ordering Provider Date Prolia (denosumab) 60mg,SC injection, ND C#[id number] Injection Nurse Schedul e 07/10/2020 Therapeutic Injection Injection Nurse Schedule 07/10/2020 Covid-19 vaccine, Unspecified Inj ection Unknown 06/07/2020 Covid-19 vaccine, Unspecified Inj ection Unknown 05/04/2020 Prolia (denosumab) 60mg,SC injection, ND C#[id number] Injection Nurse Schedul e 01/27/2020 Therapeutic Injection Injection Nurse Schedule 01/27/2020 Administration Of Flu Vaccine Inj kuldip Raya MD 01/20/2020 Prolia (denosumab) 60mg,SC injection, ND C#[id number] Injection Aries desouza MD 07/22/2019 Therapeutic Injection Injection Nurse Schedule 07/22/2019 Administration Of Flu Vaccine Inj ection Aries Raya MD 01/19/2019 Administration Of Flu Vaccine Inj ection JERRI Gaona 12/24/2017 Administration Of Flu Vaccine Inj ection COMPA Estevez 01/03/2016 Administration Of Flu Vaccine Inj davidion Aries Raya MD 01/26/2015 Administration Of Flu Vaccine Inj kuldip Raya MD 01/20/2014 Administration Of Flu Vaccine Inj kuldip Raya MD 12/09/2012 Administration Of Flu Vaccine Inj kuldip Raya MD 01/14/2011 Immunizations CPT Code Status Date Vaccine Lot # [id number] Given 01/20/2020 Influenza Vaccin e Quadrivalent Preser/Antibiotic Free Im Use 35346 Given 01/20/2020 Influenza Vaccin e Quadrivalent Preser/Antibiotic Free Im Use 306144 82229 Given 01/19/2019 Influenza Vaccin e Quadrivalent Preser/Antibiotic Free Im Use [id number] 62220 Given 12/24/2017 Influenza Virus Vaccine, Quadrivalent ([id number]), Derived From 1 Given 08/27/2017 Pneumovax 23 [id number] U-PneuC Given 08/28/2016 Prevnar 13 Q2037 Given 01/03/2016 Fluvirin Virus Vaccine 11480 01 Q2037 Given 01/26/2015 Fluvirin Virus Vaccine 08386 01 Q2037 Given 01/20/2014 Fluvirin Virus Vaccine 73445 01 Q2037 Given 12/09/2012 Fluvirin Virus Vaccine 82662 Given 06/22/2012 Zoster Vaccine [id number] Q2037 Given 01/14/2011 Fluvirin Virus Vaccine 50558 Given 01/14/2011 Pneumovax 23 Vital Signs Date Vital Result Comment 09/01/2020 7:43am BP Systolic 128 mmHg BP Diastolic 70 mmHg Heart Rate 68 /min Height 66 inches 5'6" Weight 136.12 lb O2 % BldC Oximetry 97 % RM Air BMI (Body Mass Index) 22.0 kg/m2 06/09/2020 10:00am BP Systolic 120 mmHg BP Diastolic 70 mmHg Height 66 inches 5'6" Weight 145.00 lb BMI (Body Mass Index) 23.4 kg/m2 Results Test Acquired Date Facility Test Result H/L Range Note Liver Profile 10/23/2020 [facility] nter [address] [place], [place] [id number] [phone] Ast/Sgot 18 U/L Normal 7-37 Alt/SGPT 22 U/L Normal 12-78 Alkaline Phosphatase 50 U/L Normal 45-117 Bilirubin,Total 0.7 mg/dL Normal 0.2-1.0 Bilirubin,Direct 0.2 mg/dL Normal 0.0-0.2 Total Protein 6.8 GM/DL Normal 6.4-8.2 Albumin 4.0 GM/DL Normal 3.2-5.2 Albumin/Globulin Ratio 1.4 Normal 1.2-2.2 Laboratory test finding 10/23/2020 [facility] [address] [place] [address] [phone] Immunoglobulin A 117.0 mg/dL Normal 70-400 Tissue Transglutaminase IgA <2 U/mL Normal 0-3 1 Complete Blood Count 08/30/2020 [facility] ramirez mccormick Pmp Certified Project Manager: [place] [address] [phone] WBC 5.8 x10*3/UL 4.1 - 10.9 RBC [...] 2.0 - 7.8 Comprehensive Chem Profile 08/30/2020 [facility] ram[facility] reveles Pmp Certified Project Manager: [place] [address] [phone] Glucose 84 mg/dL 74 - 99 2 BUN 16 mg/dL 7 - 18 Creatinine [...] mL/min >60 GFR >= 60 mL/min >60 3 Lipid Profile 08/30/2020 [facility] , Pmp Certified Project Manager: [place] [address] [phone] Cholesterol 233 mg/dL High 131 - 200 Triglycerides 56 mg/dL 30 - 150 HDL Cholesterol 81 mg/dL High 35 - 60 LDL (Calculated) 141 CALC 50 - 159 Laboratory test finding 08/30/2020 [facility] [employer] [facility] isconnie, Pmp Certified Project Manager: [place] [address] [phone] Thyroid Stimulating Hormone 2.12 uIU/mL 0.3 6 - 3.74 Laboratory test finding 08/30/2020 [facility] [employer] [facility] isconnie, Pmp Certified Project Manager: [place] [address] [phone] Vitamin D 25-Hydroxy 56.6 ng/ml 24.0 - 80.0 4 Laboratory test finding 07/03/2020 [facility] [address] [place] [id number] [phone] Phosphorus Level 3.8 mg/dL Normal 2.5-4.9 Basic Metabolic Panel 07/03/2020 [facility] Pmp Certified Project Manager: [place] [address] [phone] Glucose 93 mg/dL 74 - 99 5 BUN 10 mg/dL 7 - 18 Creatinine 0.7 mg/dL 0.6 - 1.3 Sodium 143 mEq/L 136 - 145 Potassium 4.2 mEq/L 3.5 - 5.1 Chloride 104 mEq/L 98 - 107 Carbon Dioxide 32 mEq/L 21 - 32 Calcium 9.2 mg/dL 8.5 - 10.1 GFR >= 60 mL/min >60 GFR >= 60 mL/min >60 6 Laboratory test finding 07/03/2020 [facility] [employer] [facility] ramirez faye Pmp Certified Project Manager: Dr Aries Raya [place], [place] 0[address] [phone] Magnesium 2.1 mg/dL 1.8 - 2.4 1 Negative 0 - 3 Weak Positive 4 - 10 Positive >10 . Tissue Transglutaminase (tTG) has been identified as the endomysial antigen. Studies have demonstr- ated that endomysial IgA antibodies have over 99% specificity for gluten sensitive enteropathy. Performed at: - [facility] [id number] Pmp Certified Project Manager: Mary Lou Henderson MD, Phone: [phone] 2 100-125 mg/dL PRE-DIABET ES/FASTING >126 mg/dL DIABETES/FASTING 3 CHRONIC KIDNEY DISEASE STAGI NG PER NKF STAGE I & II GFR >= 60 NORMAL TO MILDLY DECREASED STAGE III GFR 30-59 MODERATELY DECREASED STAGE IV GFR 15-29 SEVERELY DECREASED STAGE V GFR <15 VERY LITTLE GFR LEFT ESRD GFR <15 ON COOK'S ASSISTANT 4 This test was performed [employer] Vitamin D immunoassay kit. Values obtained with different assay methods should not be used interchangeably. 5 100-125 mg/dL PRE-DIABET ES/FASTING >126 mg/dL DIABETES/FASTING 6 CHRONIC KIDNEY DISEASE STAGI NG PER NKF STAGE I & II GFR >= 60 NORMAL TO MILDLY DECREASED STAGE III GFR 30-59 MODERATELY DECREASED STAGE IV GFR 15-29 SEVERELY DECREASED STAGE V GFR <15 VERY LITTLE GFR LEFT ESRD GFR <15 ON COOK'S ASSISTANT Procedures Date Code Description Status 09/25/2020 [id number] Mammogram Completed 09/01/2020 15356 EKG/Interpretation & Report Comp leted 09/01/2020 41233 Office/Outpatient Established Mo d MDM 30-39 Min Completed 07/10/2020 66365 Therapeutic Injection Completed 02/10/2019 [id number] Bone Mineral Density Test Comple megan 11/12/2018 14595433 Mammogram Completed 09/07/2018 [id number] Colonoscopy Completed 10/10/2017 [id number] Bone Mineral Density Test Comple megan 10/10/2017 [id number] Mammogram Completed 10/04/2016 [id number] Bone Mineral Density Test Comple megan 07/04/2016 [id number] Mammogram Completed 02/01/2015 [id number] Mammogram Completed 10/27/2013 [id number] Bone Mineral Density Test Comple megan 01/05/2013 13001360 Mammogram Completed 2011 [id number] Colonoscopy Completed 07/11/2011 [id number] Mammogram Completed 01/14/2011 [id number] Bone Mineral Density Test Comple megan 06/13/2010 [id number] Mammogram Completed 12/07/2008 [id number] Mammogram Completed 12/07/2008 [id number] Bone Mineral Density Test Comple megan 11/03/2008 [id number] Colonoscopy Completed Medical Devices Description No Information Available Encounters Type Date Location Provider Dx Diagnosis Office Visit 09/01/2020 8:00a [facility] Aries Raya MD R10.13 Epigastric pain R63.4 Abnormal weight loss M81.0 Age-related osteoporosis w/o current pathological fracture E55.9 Vitamin D deficiency, unspec ified E78.00 Pure hypercholesterolemia, u nspecified H40.9 Unspecified glaucoma Z13.89 Encounter for screening for other disorder Assessments Date Code Description Provider 09/01/2020 R10.13 Epigastric pain Aries rachel MD 09/01/2020 R63.4 Abnormal weight loss Aries Raya MD 09/01/2020 M81.0 Age-related osteoporosis without current pathological fracture Aries Raya MD 09/01/2020 E55.9 Vitamin D deficiency, unspecifie d Aries Raya MD 09/01/2020 E78.00 Pure hypercholesterolemia, unspe cified Aries Raya MD 09/01/2020 H40.9 Unspecified glaucoma Aries Raya MD 09/01/2020 Z13.89 Encounter for screening for othe r disorder Aries Raya MD 08/30/2020 E78.00 Pure hypercholesterolemia, unspe cified Aries Raya MD 08/30/2020 E78.00 Pure hypercholesterolemia, unspe cified Lab Schedule 08/30/2020 K21.9 Gastro-esophageal reflux disease without esophagitis Aries Raya MD 08/30/2020 K21.9 Gastro-esophageal reflux disease without esophagitis Lab Schedule 08/30/2020 E55.9 Vitamin D deficiency, unspecifie d Aries Raya MD 08/30/2020 E55.9 Vitamin D deficiency, unspecifie d Lab Schedule 07/10/2020 M81.0 Age-related osteoporosis without current pathological fracture Aries Raya MD 07/10/2020 M81.0 Age-related osteoporosis without current pathological fracture Nurse Schedule 07/03/2020 M81.0 Age-related osteoporosis without current pathological fracture Aries Raya MD 07/03/2020 M81.0 Age-related osteoporosis without current pathological fracture Lab Schedule Plan of Treatment Future Appointment(s):* 08/21/2021 8:10 am - [email or web address] * 08/22/2021 8:20 am - Aries Raya MD at [facility] * 08/22/2021 8:00 am - [facility] #[email or web address] 09/01/2020 - Aries Raya MD* R10.13 Epigastric pain * R63.4 Abnormal weight loss * M81.0 Age-related osteoporosis without current pathological fracture * E55.9 Vitamin D deficiency, unspecified * E78.00 Pure hypercholesterolemia, unspecified * H40.9 Unspecified glaucoma * Z13.89 Encounter for screening for other disorder Functional Status Description No Information Available Mental Status Description No Information Available Referrals Refer to Dr Reason for Referral Status Appt Date Adam Milian MD CONSULT FOR EVALUATION OF GLAUCOMA Creat ed [employer] [facility] [address] [facility], [address] [facility] [id number] [phone] Audi Lindsay JR, MD CONSULT FOR RUQ PAIN. PT SC HEDULED FOR CT ABD/PELVIS AT [facility] ON 07/10/20 Patient Notified 07/17/2020 [facility] General Surgery [address] [facility] [address] [facility] [address] [phone]
--- OUTSIDE RECORDS SUMMARY | 2021-01-04 09:41 | CCD | Continuity of Care Document ---
Author Author Stephenie DEGROOT MD Organization Unknown Address [address] [place] [address] Phone [phone] Care Team Providers Care Machine Shop Repair Technician Name Role Phone Aries Raya MD @ [facility] Int AUTM Yobany Wesley AUTM [phone] Madhavi Grace AUTM Audi Lindsay M.D. AUTM [phone] Problems Description No Information Available Social History [...] Gabapentin 300mg Capsules 1 t id Unknown [place]-3 Fish Oil 1000mg Capsules 1 qd Unknown [...] lb BMI (Body Mass Index) 23.5 kg/m2 [place] Body Weight 135 lb Weight 68.040 kg BSA (Body Surface Area) 1.79 m2 07/17/2020 9:22am BP Systolic 175 mmHg BP Diastolic 75 mmHg Height 67 inches 5'7" Weight 140.50 lb BMI (Body Mass Index) 22.0 kg/m2 [place] Body Weight 135 lb Weight 63.731 kg BSA (Body Surface Area) 1.74 m2 Results Test Acquired Date Facility Test Result H/L Range Note Gastrointestinal (GI) Panel 10/27/2020 [facility] Main Lab [address] [place] [address] [phone] Gastrointestinal (GI) Panel This Gastrointes <SEE NOTE > 1 Laboratory test finding 10/27/2020 [facility] Main Lab [address] [place] [address] [phone] [phone] Pancreatic Elastase Stool >500 Normal >200 2, 3 Liver Profile 10/23/2020 [facility] Main Lab [address] [place] [address] [id number] [phone] Ast/Sgot 18 U/L Normal 7-37 Alt/SGPT 22 U/L Normal 12-78 Alkaline Phosphatase 50 U/L Normal 45-117 Bilirubin,Total 0.7 mg/dL Normal 0.2-1.0 Bilirubin,Direct 0.2 mg/dL Normal 0.0-0.2 Total Protein 6.8 GM/DL Normal 6.4-8.2 Albumin 4.0 GM/DL Normal 3.2-5.2 Albumin/Globulin Ratio 1.4 Normal 1.2-2.2 Laboratory test finding 10/23/2020 [facility] Main Lab [address] [place] [address] [phone] Tissue Transglutaminase IgA <2 U/mL Normal 0-3 [...] 100 - 200 Normal: >200 Performed at: [address] [id number] [employer]: Adalid Stevens MD, Phone: [phone] 11/20/20 (FriNov 20) 06:45 PM JUANI DEGROOT normal 4 Negative 0 - 3 Weak Positive 4 - 10 Positive >10 . Tissue Transglutaminase (tTG) has been identified as the endomysial antigen. Studies have demonstr- ated that endomysial IgA antibodies have over 99% specificity for gluten sensitive enteropathy. Performed at: [address] [id number] [employer]: Mary Lou Henderson MD, Phone: [phone] 11/20/20 (FriNov 20) 06:44 PM JUANI DEGROOT normal Procedures Date Code Description Status 10/23/2020 64925 Office/Outpatient New Moderate M DM 45-59 Minutes Completed 07/17/2020 29922 Office/Outpatient New Low MDM 30 -44 Minutes Completed Medical Devices Description No Information Available Encounters Type Date Location Provider Dx Diagnosis Office Visit 10/23/2020 9:00a [facility] ctice Juani Degroot MD R10.13 Epigastric pain R19.4 Change in bowel habit R93.2 Abnormal findings on dx imag ing of liver and biliary tract Office Visit 07/17/2020 9:15a [facility] Audi moreland JR, MD [...] PAIN, DIARRHEA, RECTAL BLEEDING Sched ed 10/23/2020 [facility], Gastroenterology [address] [place] [address], [address] [place], [place] [phone] Audi Lindsay JR, MD RIGHT UPPER QUARANT PAIN Closed 10/23/[address] [place] [address] [address] [place] [address] [phone]
--- OUTSIDE RECORDS SUMMARY | 2021-01-04 09:42 | CCD ---
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 Role Phone JUANI GILBERT MD Unavailable Unavailable REINDL, JUANI AVERY Unavailable Unavailable REINDL, JUANI AVERY Unavailable Unavailable REINDL, JUANI AVERY Unavailable Unavailable REINLAVERN, JUANI AVERY Unavailable Unavailable REINLAVERN, JUANI AVERY Unavailable Unavailable REINDL, JUANI AVERY Unavailable Unavailable REINDL, JUANI AVERY Unavailable Unavailable REINDL, JUANI AVERY Unavailable Unavailable REINDL, JUANI AVERY Unavailable Unavailable REINDL, JUANI AVERY Unavailable Unavailable REINLAVERN, JUANI AVERY Unavailable Unavailable REINLAVERN, JUANI AVERY Unavailable Unavailable REINLAVERN, JUANI AVERY Unavailable Unavailable REINLAVERN, JUANI AVERY Unavailable Unavailable REINDL, JUANI AVERY Unavailable Unavailable REINLAVERN, JUANI AVERY Unavailable Unavailable REINLAVERN, JUANI AVERY Unavailable Unavailable REINLAVERN, JUANI AVERY Unavailable Unavailable REINLAVERN, JUANI AVERY Unavailable Unavailable REINLAVERN, JUANI AVERY Unavailable Unavailable REINDL, JUANI AVERY Unavailable Unavailable REINDL, JUANI AVERY Unavailable Unavailable REINLAVERN, JUANI AVERY Unavailable Unavailable REINLAVERN, JUANI AVERY Unavailable Unavailable REINDL, JUANI AVERY Unavailable Unavailable REINDL, JUANI AVERY Unavailable Unavailable REINDL, JUANI AVERY Unavailable Unavailable REINDL, JUANI AVERY Unavailable Unavailable REINLAVERN, JUANI AVERY Unavailable Unavailable REINLAVERN, JUANI AVERY Unavailable Unavailable REINLAVERN, JUANI AVERY Unavailable Unavailable REINLAVERN, JUANI AVERY Unavailable Unavailable REINLAVERN, JUANI AVERY Unavailable Unavailable REINLAVERN, JUANI AVERY Unavailable Unavailable REINLAVERN, JUANI AVERY Unavailable Unavailable REINLAVERN, JUANI AVERY Unavailable Unavailable REINLAVERN, JUANI AVERY Unavailable Unavailable REINLAVERN, JUANI AVERY Unavailable Unavailable REINLAVERN, JUANI AVERY Unavailable Unavailable OFELIA, JUANI AVERY Unavailable Unavailable OFELIA, JUANI AVERY Unavailable Unavailable Hector B Wiley AVERY Unavailable Unavailable Hector B Wiley AVERY Unavailable Unavailable Fish, B Wiley AVERY Unavailable Unavailable Fish, B Wiley AVERY Unavailable Unavailable Fish, B Wiley AVERY Unavailable Unavailable Fish, B Wiley AVERY Unavailable Unavailable Fish, B Wiley AVERY Unavailable Unavailable Fish, B Wiley AVERY Unavailable Unavailable Fish, B Wiley AVERY Unavailable Unavailable Fish, B Wiley AVERY Unavailable Unavailable Fish, B Wiley AVERY Unavailable Unavailable Fish, B Wiley AVERY Unavailable Unavailable Fish, B Wiley AVERY Unavailable Unavailable Fish, B Wiley AVERY Unavailable Unavailable Fish, B Wiley AVERY Unavailable Unavailable Fish, B Wiley AVERY Unavailable Unavailable Fish, B Wiley AVERY Unavailable Unavailable Fish, B Wiley AVERY Unavailable Unavailable Fish, B Wiley AVERY Unavailable Unavailable Fish, B Wiley AVERY Unavailable Unavailable Fish, B Wiley AVERY Unavailable Unavailable Fish, B Wiley AVERY Unavailable Unavailable Fish, B Wiley AVERY Unavailable Unavailable Fish, B Wiley AVERY Unavailable Unavailable Fish, B Wiley AVERY Unavailable Unavailable Fish, B Wiley AVERY Unavailable Unavailable Fish, B Wiley AVERY Unavailable Unavailable Fish, B Wiley AVERY Unavailable Unavailable Fish, B Wiley AVERY Unavailable Unavailable Fish, B Wiley AVERY Unavailable Unavailable Fish, B Wilye AVERY Unavailable Unavailable Fish, B Wiley AVERY Unavailable Unavailable Fish, B Wiley AVERY Unavailable Unavailable Fish, B Wiley AVERY Unavailable Unavailable Fish, B Wiley AVERY Unavailable Unavailable Fish, B Wiley AVERY Unavailable Unavailable Fish, B Wiley AVERY Unavailable Unavailable Fish, B Wiley AVERY Unavailable Unavailable Fish, B Wiley AVERY Unavailable Unavailable Fish, B Wiley AVERY Unavailable Unavailable Fish, B Wiley AVERY Unavailable Unavailable Fish, B Wiley AVERY Unavailable Unavailable Fish, B Wiley AVERY Unavailable Unavailable Fish, B Wiley AVERY Unavailable Unavailable Fish, B Wiley AVERY Unavailable Unavailable Fish, B Wiley AVERY Unavailable Unavailable Fish, B Wiley AVERY Unavailable Unavailable Fish, B Wiley AVERY Unavailable Unavailable Fish, B Wiley AVERY Unavailable Unavailable Fish, B Wiley AVERY Unavailable Unavailable Fish, B Wiley AVERY Unavailable Unavailable Fish, B Wiley AVERY Unavailable Unavailable Fish, B Wiley AVERY Unavailable Unavailable Fish, B Wiley AVERY Unavailable Unavailable Fish, B Wiley AVERY Unavailable Unavailable Fish, B Wiley AVERY Unavailable Unavailable PICKERAL JR, J MATI PA-C Unavailable Unavailable PICKERAL JR, J MATI PA-C Unavailable Unavailable PICKERAL JR, J MATI PA-C Unavailable Unavailable PICKERAL JR, J MATI PA-C Unavailable Unavailable PICKERAL JR, J MATI PA-C Unavailable Unavailable PICKERAL JR, J MATI PA-C Unavailable Unavailable PICKERAL JR, J MATI PA-C Unavailable Unavailable PICKERAL JR, J MATI PA-C Unavailable Unavailable PICKERAL JR, J MATI PA-C Unavailable Unavailable PICKERAL JR, J MATI PA-C Unavailable Unavailable PICKERAL JR, J MATI PA-C Unavailable Unavailable PICKERAL JR, J MATI PA-C Unavailable Unavailable PICKERAL JR, J MATI PA-C Unavailable Unavailable PICKERAL JR, J MATI PA-C Unavailable Unavailable PICKERAL JR, J MATI PA-C Unavailable Unavailable PICKERAL JR, J MATI PA-C Unavailable Unavailable PICKERAL JR, J MATI PA-C Unavailable Unavailable PICKERAL JR, J MATI PA-C Unavailable Unavailable PICKERAL JR, J MATI PA-C Unavailable Unavailable PICKERAL JR, J MATI PA-C Unavailable Unavailable PICKERAL JR, J MATI PA-C Unavailable Unavailable PICKERAL JR, J MATI PA-C Unavailable Unavailable PICKERAL JR, J MATI PA-C Unavailable Unavailable PICKERAL JR, J MATI PA-C Unavailable Unavailable PICKERAL JR, J MATI PA-C Unavailable Unavailable PICKERAL JR, J MATI PA-C Unavailable Unavailable PICKERAL JR, J MATI PA-C Unavailable Unavailable Kasey Raya MD Unavailable Unavailable Kasey Ryaa MD Unavailable Unavailable Kasey Raya MD Unavailable Unavailable Kasey Raya MD Unavailable Unavailable Kasey Raya MD Unavailable Unavailable Kasey Raya MD Unavailable Unavailable Kasey Raya MD Unavailable Unavailable Kasey Raya MD Unavailable Unavailable Kasey Raya MD Unavailable Unavailable Kasey Raya MD Unavailable Unavailable Kasey Raya MD Unavailable Unavailable Kasey Raya MD Unavailable Unavailable Kasey Raya MD Unavailable Unavailable Kasey Raya MD Unavailable Unavailable Kasey Raya MD Unavailable Unavailable Kasey Raya MD Unavailable Unavailable Kasey Raya MD Unavailable Unavailable Kasey Raya MD Unavailable Unavailable Kasey Raya MD Unavailable Unavailable Kasey Raya MD Unavailable Unavailable Kasey Raya MD Unavailable Unavailable Kasey Raya MD Unavailable Unavailable Kasey Raya MD Unavailable Unavailable Kasey Raya MD Unavailable Unavailable Kasey Raya MD Unavailable Unavailable Kasey Raya MD Unavailable Unavailable Kasey Raya MD Unavailable Unavailable Kasey Raya MD Unavailable Unavailable Kasey Raya MD Unavailable Unavailable Cowles[place]Kasey frost MD Unavailable Unavailable DorotaKasey MD Unavailable Unavailable [place]Kasey MD Unavailable Unavailable DorotaKasey MD Unavailable Unavailable DorotaKasey MD Unavailable Unavailable [place]Kasey MD Unavailable Unavailable DorotaKasey MD Unavailable Unavailable [place]Kasey MD Unavailable Unavailable [place]Ksaey MD Unavailable Unavailable [place]Kasey MD Unavailable Unavailable [place]Kasey MD Unavailable Unavailable DorotaKasey MD Unavailable Unavailable [place]Kasey MD Unavailable Unavailable DorotaKasey MD Unavailable Unavailable [place]Kasey MD Unavailable Unavailable DorotaKasey MD Unavailable Unavailable [place]Kasey MD Unavailable Unavailable [place]asey MD Unavailable Unavailable [place]Kasey MD Unavailable Unavailable DorotaKasey MD Unavailable Unavailable DorotaKasey MD Unavailable Unavailable DorotaKasey MD Unavailable Unavailable [place]Kasey MD Unavailable Unavailable DorotaKasey MD Unavailable Unavailable [place]Kasey MD Unavailable Unavailable DorotaKasey MD Unavailable Unavailable [place]Kasey MD Unavailable Unavailable DorotaKasey MD Unavailable Unavailable [place]Kasey MD Unavailable Unavailable [place]Kasey MD Unavailable Unavailable DorotaKasey MD Unavailable Unavailable [place]Kasey MD Unavailable Unavailable [place]Kasey MD Unavailable Unavailable DorotaKasey MD Unavailable Unavailable DorotaKasey MD Unavailable Unavailable [place]Kasey MD Unavailable Unavailable DorotaKasey frost MD Unavailable Unavailable [place]y frost MD Unavailable Unavailable DorotaKasey MD Unavailable Unavailable DorotaKasey frost MD Unavailable Unavailable [place]Kasey MD Unavailable Unavailable [place]Kasey MD Unavailable Unavailable [place]Kasey frost MD Unavailable Unavailable [place]y frost MD Unavailable Unavailable [place]y frost MD Unavailable Unavailable DorotaKasey MD Unavailable Unavailable [place]Kasey MD Unavailable Unavailable DorotaKasey MD Unavailable Unavailable DorotaKasey MD Unavailable Unavailable DorotaKasey MD Unavailable Unavailable DorotaKasey MD Unavailable Unavailable [place]Kasey MD Unavailable Unavailable DorotaKasey MD Unavailable Unavailable [place]Kasey MD Unavailable Unavailable DorotaKasey MD Unavailable Unavailable [place]Kasey MD Unavailable Unavailable [place]Kasey MD Unavailable Unavailable Etta Lindsay JR, MD Unavailable Unavailable Etta Lindsay JR, MD Unavailable Unavailable Etta Lindsay JR, MD Unavailable Unavailable Etta Lindsay JR, MD Unavailable Unavailable Etta Lindsay JR, MD Unavailable Unavailable Etta Lindsay JR, MD Unavailable Unavailable Etta Lindsay JR, MD Unavailable Unavailable Etta Lindsay JR, MD Unavailable Unavailable Etta Lindsay JR, MD Unavailable Unavailable Etta Lindsay JR, MD Unavailable Unavailable Etta Lindsay JR, MD Unavailable Unavailable Etta Lindsay JR, MD Unavailable Unavailable Etta Lindsay JR, MD Unavailable Unavailable Etta Lindsay JR, MD Unavailable Unavailable Etta Lindsay JR, MD Unavailable Unavailable Etta Lindsay JR, MD Unavailable Unavailable Etta Lindsay JR, MD Unavailable Unavailable Etta Lindsay JR, MD Unavailable Unavailable Etta Lindsay JR, MD Unavailable Unavailable Etta Lindsay JR, MD Unavailable Unavailable Etta Lindsay JR, MD Unavailable Unavailable Etta Lindsay JR, MD Unavailable Unavailable Etta Lindsay JR, MD Unavailable Unavailable Etta Lindsay JR, MD Unavailable Unavailable Etta Lindsay JR, MD Unavailable Unavailable Etta Lindsay JR, MD Unavailable Unavailable Etta Lindsay JR, MD Unavailable Unavailable Etta Lindsay JR, MD Unavailable Unavailable Etta Lindsay JR, MD Unavailable Unavailable Etta Lindsay JR, MD Unavailable Unavailable Etta Lindsay JR, MD Unavailable Unavailable Etta Lindsay JR, MD Unavailable Unavailable Etta Lindsay JR, MD Unavailable Unavailable Etta Lindsay JR, MD Unavailable Unavailable Etta Lindsay JR, MD Unavailable Unavailable Etta Lindsay JR, MD Unavailable Unavailable Etta Lindsay JR, MD Unavailable Unavailable Etta Lindsay JR, MD Unavailable Unavailable Etta Lindsay JR, MD Unavailable Unavailable Etta Lindsay JR, MD Unavailable Unavailable Etta Lindsay JR, MD Unavailable Unavailable Etta Lindsay JR, MD Unavailable Unavailable Etta Lindsay JR, MD Unavailable Unavailable Etta Lindsay JR, MD Unavailable Unavailable Etta Lindsay JR, MD Unavailable Unavailable Etta Lindsay JR, MD Unavailable Unavailable Etta Lindsay JR, MD Unavailable Unavailable Etta Lindsay JR, MD Unavailable Unavailable Etta Lindsay JR, MD Unavailable Unavailable Etta Lindsay JR, MD Unavailable Unavailable Etta Lindsay JR, MD Unavailable Unavailable Etta Lindsay JR, MD Unavailable Unavailable Etta Lindsay JR, MD Unavailable Unavailable Etta Lindsay JR, MD Unavailable Unavailable Re-disclosure Warning The records that you are about to access may contain information from federally-assisted alcohol or drug abuse programs. If such information is present, then the following federally mandated warning applies: This information has been disclosed to you from records protected by federal confidentiality rules (42 CFR part 2). The federal rules prohibit you from making any further disclosure of this information unless further disclosure is expressly permitted by the written consent of the person to whom it pertains or as otherwise permitted by 42 CFR part 2. A general authorization for the release of medical or other information is NOT sufficient for this purpose. The Federal rules restrict any use of the information to criminally investigate or prosecute any alcohol or drug abuse patient.The records that you are about to access may contain highly sensitive health information, the redisclosure of which is protected by Article 27-F of the [facility] Public Health law. If you continue you may have access to information: Regarding HIV / AIDS; Provided by facilities licensed or operated by the [facility] Office of Mental Health; or Provided by the [facility] Office for People With Developmental Disabilities. If such information is present, then the following [facility] mandated warning applies: This information has been disclosed to you from confidential records which are protected by state law. State law prohibits you from making any further disclosure of this information without the specific written consent of the person to whom it pertains, or as otherwise permitted by law. Any unauthorized further disclosure in violation of state law may result in a fine or retirement sentence or both. A general authorization for the release of medical or other information is NOT sufficient authorization for further disc losure. Family History Family Member Name Family Member Gender Family Member Status Date o f Status Description Data Source(s) Unknown Unknown Problem [facility] ([facility]) mother,sister Unknown Female Problem [facility] ([facility]) Unknown Female Encounters Encounter Providers Location Date Indications Data Source(s ) Outpatient Attender: JUANI Nance/Jing/Jose/Lauryn cook 10/23/2020 09:00:00 AM EDT [facility] ([facility]) Outpatient Attender: Aries Gomes 0 09/01/2020 08:00:00 AM EDT [facility] ([facility] ) Outpatient Attender: Audi Nance/Jing/Jose/Rein dl 07/17/2020 09:15:00 AM EDT [facility] Outpatient Attender: MATI Gomes 0 06/09/2020 10:00:00 AM EDT [facility] ([facility] ) Outpatient Attender: Wiley Young MD Physical Therapy 01/27/2020 1 0:00:00 AM EST [facility] ([facility] ) Immunizations Vaccine Date Status Description Data Source(s) COVID-19 VACCINE Moderna 06/07/2020 12:00:00 AM EDT completed [facility] Vaccine Series Complete: YESThis Data wa s Submitted to [facility] [employer] COVID-19 VACCINE, MRNA-1273, LNP-S (MODERNA)/PF 06/07/2020 1 2:00:00 AM EDT completed [facility] COVID-19 VACCINE, MRNA-1273, LNP-S (MODERNA)/PF 05/04/2020 1 2:00:00 AM EST completed [facility] Influenza, injectable, MDCK, preservative free, kade valent 01/20/2020 03:18:00 PM EST completed [facility]) Influenza, injectable, MDCK, preservative free, kade valent 01/20/2020 09:22:00 AM EST completed [facility]) Medications Medication Brand Name Start Date Product Form Dose Route Admi nistrative Instructions Pharmacy Instructions Status Indications Reaction Description Data Source(s) Famotidine 40 MG Oral Tablet Famotidine 12/01/2020 12:00:00 AM EDT ORAL active [facility] ([facility]) magnesium citrate 58.2 MG/ML Oral Solution Magnesium Citrate 10/23/2020 12:00:00 AM EDT active [facility] ([facility], ) POLYETHYLENE GLYCOL 3350 142 MG/ML Oral Solution [Miralax] M iralax 10/23/2020 12:00:00 AM EDT active M EDENT ([facility], ) Famotidine 40 MG Oral Tablet Famotidine 07/17/2020 12:00:00 AM EDT ORAL active [facility] ([facility], ) Therapeutic Injection 07/10/2020 12:00:00 AM EDT completed [facility] ([facility]) Medication administered onsite Prolia (denosumab) 60mg,SC injection, [facility]#[id number] 07/10/2020 12:00:00 AM EDT completed [facility] ([facility]) Medication administered onsite Covid-19 vaccine, Unspecified 06/07/2020 12:00:00 AM EDT completed [facility]) Medication administered onsite Covid-19 vaccine, Unspecified 05/04/2020 12:00:00 AM EST completed [facility]) Medication administered onsite Prolia (denosumab) 60mg,SC injection, [facility]#[id number] 01/27/2020 12:00:00 AM EST completed [facility] ([facility]) Medication administered onsite Therapeutic Injection 01/27/2020 12:00:00 AM EST completed [facility] ([facility]) Medication administered onsite Administration Of Flu Vaccine 01/20/2020 12:00:00 AM EST completed [facility]) Medication administered onsite Insurance Providers Payer name Policy type / Coverage type Policy ID Covered democrat ID Covered democrat's relationship to pena Policy Pena Plan Information [facility] Commercial o [id number] Self [facility] Commercial [id number] Self [id number] [facility] (Hmo) Health Maintenance Organization (HMO) [id number] Self [id number] [facility] Part B [id number] Self [id number] [facility] Medigap Part B [id number] Self [id number] [facility] ([place]) Commercial [id number] Self [id number] MEDICARE COMPLETE [id number] [facility] Medicare [place] Commercial [id number] Self [id number] [facility] Commercial [id number] Self [id number] 00 [facility] Medicare [place] Commercial [id number] Self [id number] [facility] ([facility]) [facility] Part B [id number] Self [id number] MEDICARE COMPLETE-[facility] [id number] S [id number] [facility]/Medicare Solu Commercial [id number] Self [id number] [employer] Medicare Commercial [id number] Self [id number] [facility] [place] Commercial [id number] 00 [id number] Self [id number] [employer] Medicare Commercial [id number] Self [id number] [employer] Medicare Commercial Advantage Plus [id number] Ppo [id number] Self Advantage Plus 350B Ppo [facility](MCAID) O [id number] S [id number] UNITED HEALTHCARE O [id number] S [id number] [employer]/BANGLADESHI O [id number] S [id number] [employer] Medigap Part B [id number] Self [facility] (Medicare) Commercial [id number] Self [facility] P [id number] [id number] [facility] P [id number] S [id number] MEDICARE COMPLETE [id number] SP [id number] MEDICARE COMPLETE-[facility] O [id number] S [id number] MEDICARE [id number] SP [id number] MEDICARE COMPLETE [id number] SP [id number] [employer] Medicare Commercial [id number] Self [id number] [facility] Commercial [id number] Self [id number] 00 [employer] Medicare Commercial [id number] Self [id number] [employer] Medicare Commercial [id number] Self [id number] [employer] Medicare Commercial [id number] Self [id number] [employer] Medicare Commercial [id number] Self [id number] [facility]/Medicare Solu Commercial [id number] Self [id number] Problems, Conditions, and Diagnoses No Information Surgeries/Procedures Procedure Description Date Indications Data Source(s) OFFICE OUTPATIENT NEW 45 MINUTES 10/23/2020 12:00:00 A M EDT [facility] Mammogram 09/25/2020 12:00:00 AM EDT [facility] OFFICE OUTPATIENT VISIT 25 MINUTES 09/01/2020 12:00:00 AM EDT [facility] ECG ROUTINE ECG W/LEAST 12 LDS W/I&R 09/01/2020 12:00: 00 AM EDT [facility] OFFICE OUTPATIENT NEW 30 MINUTES 07/17/2020 12:00:00 A M EDT [facility] ([facility]) THERAPEUTIC PROPHYLACTIC/DX INJECTION SUBQ/IM 07/11/19 21 12:00:00 AM EDT [facility] OFFICE OUTPATIENT VISIT 25 MINUTES 06/09/2020 12:00:00 AM EDT [facility] THERAPEUTIC PROPHYLACTIC/DX INJECTION SUBQ/IM 01/27/20 20 12:00:00 AM EST [facility] X-Ray Hip Unilateral With Pelvis 2-3 Views 01/27/2020 12:00:00 AM EST [facility] ) Results ID Date Data Source [id number] 12/30/2020 11:50:00 AM EDT [facility] Name Value Range Interpretation Code Description Data Praitma rce(s) Supporting Document(s) Coronavirus 2019 Nasopharygeal Laboratory test result [facility] ([facility]) ASSAY INFORMATION: Real Time RT-PCR NOTE: The COVID-19 assay has been cleared by the U.S. Food and Drug Administration under the Emergency Use Authorization (EUA). [facility] and [employer] are designated as high complexity laboratories by the Clinical Laboratory Improvement Amendments of 1988(CLIA) and are qualified to perform this test. Not Detected ID Date Data Source [id number] 10/27/2020 06:35:00 AM EDT [facility] ([facility], ) Name Value Range Interpretation Code Description Data Pratima rce(s) Supporting Document(s) Elastase.pancreatic [Mass/mass] in Stool Laboratory test result Normal (applies to non-numeric results) [facility]) <content>Result Units: ug Elast./g</cont ent>
<content>Severe Pancreatic Insufficiency: <100</content>
<content>Moderate Pancreatic Insufficiency: 100 - 200</content>
<content>Normal: >200</content>
<content>Performed at: [facility]</content>
<content>[address] [place] [id number]</content>
<content>Administrative Support Associate: Adalid Stevens MD, Phone: [phone]</content>
<content></content> ID Date Data Source [id number] 10/27/2020 06:35:00 AM EDT [facility] ([facility], ) Name Value Range Interpretation Code Description Data Pratima rce(s) Supporting Document(s) Gastrointestinal (GI) Panel Laboratory test result [facility] ([facility], ) This Gastrointestinal PCR Panel detects the following bacteria, parasites and viruses: [...] infection. NEGATIVE by MULTIPLEXED NUCLEIC ACID PCR ID Date Data Source [id number] 10/23/2020 12:21:00 PM EDT [facility] ([facility]) Name Value Range Interpretation Code Description Data Pratima rce(s) Supporting Document(s) IgA [Mass/volume] in Serum or Plasma 117.0 mg/dL 70-400 [facility] ([facility]) Tissue transglutaminase IgA Ab [Units/volume] in Serum Labor atory test result 0-3 [facility] ([facility]) Negative 0 - 3 Weak Positive 4 - 10 Positive >10 . Tissue Transglutaminase (tTG) has been identified as the endomysial antigen. Studies have demonstr- ated that endomysial IgA antibodies have over 99% specificity for gluten sensitive enteropathy. Performed at: RN - [facility] [address] [id number] Administrative Support Associate: Mary Lou Henderson MD, Phone: [phone] ID Date Data Source [id number] 10/23/2020 12:21:00 PM EDT [facility] ([facility]) Name Value Range Interpretation Code Description Data Pratima rce(s) Supporting Document(s) Ast/Sgot 18 U/L 7-37 [facility]) Alt/SGPT 22 U/L 12-78 [facility]) Alkaline Phosphatase 50 U/L 45-117 [facility] ([facility]) Bilirubin,Total 0.7 mg/dL 0.2-1.0 [facility] ([facility]) Bilirubin,Direct 0.2 mg/dL 0.0-0.2 [facility] ([facility]) Total Protein 6.8 GM/DL 6.4-8.2 [facility] ([facility]) Albumin 4.0 GM/DL 3.2-5.2 [facility] ([facility]) Albumin/Globulin Ratio 1.4 1.2-2.2 [facility] ([facility]) ID Date Data Source [id number] 10/23/2020 12:21:00 PM EDT [facility] ([facility], ) Name Value Range Interpretation Code Description Data Pratima rce(s) Supporting Document(s) Tissue transglutaminase IgA Ab [Units/volume] in Serum Labor atory test result 0-3 Normal (applies to non-numeric results) [facility]) Negative 0 - 3 Weak Positive 4 - 10 Positive >10 . Tissue Transglutaminase (tTG) has been identified as the endomysial antigen. Studies have demonstr- ated that endomysial IgA antibodies have over 99% specificity for gluten sensitive enteropathy. Performed at: RN - [facility] [address] [id number] Administrative Support Associate: Mary Lou Henderson MD, Phone: [phone] IgA [Mass/volume] in Serum or Plasma 117.0 mg/dL 70-400 Normal (applies to non- numeric results) [facility] ([facility]) 11/20/20 (FriNov 20) 06:44 PM JUANI ARANGO normal ID Date Data Source [id number] 10/23/2020 12:21:[address] [facility]) Name Value Range Interpretation Code Description Data Pratima rce(s) Supporting Document(s) Ast/Sgot 18 U/L 7-37 Normal (applies to non-numeric resul ts) [facility] ([facility]) Alt/SGPT 22 U/L 12-78 Normal (applies to non-numeric resul ts) [facility]) Bilirubin,Total 0.7 mg/dL 0.2-1.0 Normal (applies to non-numeric results) [facility]) Alkaline Phosphatase 50 U/L 45-117 Normal (applies to non-num sherrell results) [facility] ([facility]) Total Protein 6.8 GM/DL 6.4-8.2 Normal (applies to non-numeric re sults) [facility]) Bilirubin,Direct 0.2 mg/dL 0.0-0.2 Normal (applies to non-numeric results) [facility]) Albumin 4.0 GM/DL 3.2-5.2 Normal (applies to non-numeric resul ts) [facility]) Albumin/Globulin Ratio 1.4 1.2-2.2 Normal (applies to non-n umeric results) [facility]) ID Date Data Source [id number] 08/30/2020 08:19:00 AM EDT [facility] Name Value Range Interpretation Code Description Data Pratima rce(s) Supporting Document(s) Calcidiol [Mass/volume] in Serum or Plasma 56.6 ng/mL 24.0-80.0 [facility] ([facility]) This test was performed using Fast[employer] I P Vitamin D immunoassay kit. Values obtained with different assay methods should not be used interchangeably. ID Date Data Source [id number] 08/30/2020 08:19:00 AM EDT [facility] Name Value Range Interpretation Code Description Data Pratima rce(s) Supporting Document(s) Thyrotropin [Units/volume] in Serum or Plasma by Detec tion limit <= 0.05 mIU/L 2.12 uIU/mL 0.36-3.74 [facility] ID Date Data Source [id number] 08/30/2020 08:19:00 AM EDT [facility] Name Value Range Interpretation Code Description Data Pratima rce(s) Supporting Document(s) Cholesterol [Mass/volume] in Serum or Plasma 233 mg/dL 131-200 [facility] ([facility]) Triglyceride [Mass/volume] in Serum or Plasma 56 mg/dL 30-150 [facility] ([facility]) Cholesterol in HDL [Mass/volume] in Serum or Plasma 81 mg/dL 35-60 [facility] ([facility]) Cholesterol in LDL [Mass/volume] in Serum or Plasma by calcu lation 141 CALC 50-159 [facility] ID Date Data Source [id number] 08/30/2020 08:19:00 AM EDT [facility] Name Value Range Interpretation Code Description Data Pratima rce(s) Supporting Document(s) Glucose [Mass/volume] in Serum or Plasma 84 mg/dL 74-99 [facility] ([facility]) 100-125 mg/dL PRE-DIABETES/FASTING >126 mg/dL DIABETES/FASTING Urea nitrogen [Mass/volume] in Serum or Plasma 16 mg/dL 7-18 [facility] ([facility]) Creatinine 0.7 mg/dL 0.6-1.3 [facility] ([facility]) Potassium [Moles/volume] in Serum or Plasma 4.4 meq/L 3.5-5.1 [facility] ([facility]) Sodium [Moles/volume] in Serum or Plasma 144 meq/L 136-145 [facility] ([facility]) Carbon dioxide, total [Moles/volume] in Serum or Plasma 31 meq/L 21 -32 [facility] ([facility]) Chloride [Moles/volume] in Serum or Plasma 106 meq/L 98-107 [facility] ([facility]) Calcium [Mass/volume] in Serum or Plasma 9.6 mg/dL 8.5-10.1 [facility] ([facility]) Alkaline phosphatase isoenzyme [Units/volume] in Serum or Pl asma 47 mg/dL 46-116 [facility] ([facility]) Total Bilirubin 0.7 mg/dL 0.2-1.0 [facility] ([facility]) Aspartate aminotransferase [Enzymatic activity/volume] in Serum or Plasma 20 U/L 15-37 [facility] ([facility] ) Alanine aminotransferase [Enzymatic activity/volume] in Seru m or Plasma 18 U/L 12-78 [facility] ([facility]) Proteinase 3 Ab [Units/volume] in Serum 6.9 g/dL 6.4-8.2 [facility] ([facility]) Albumin [Mass/volume] in Serum or Plasma 4.1 g/dL 3.4-5.0 [facility] ([facility]) A/G Ratio 1.46 CALC 1.00-1.90 [facility]) Glomerular filtration rate/1.73 sq M pre dicted among non-blacks [Volume Rate/Area] in Serum or Plasma by Creatinine-based formula (MDRD) Laboratory test result [facility] Glomerular filtration rate/1.73 sq M pre dicted among blacks [Volume Rate/Area] in Serum or Plasma by Creatinine-based formula (MDRD) Laboratory test result [facility] <content>CHRONIC KIDNEY DISEASE STAGING PER NKF</content>
<content></content>
<content>STAGE I & II GFR >= 60 NORMAL TO MILDLY DECREASED</content>
<content>STAGE III GFR 30-59 MODERATELY DECREASED</content>
<content>STAGE IV GFR 15-29 SEVERELY DECREASED</content>
<content>STAGE V GFR <15 VERY LITTLE GFR LEFT</content>
<content>ESRD GFR <15 ON MACHINE BINDING FOLDER</content>
<content></content> ID Date Data Source [id number] 08/30/2020 08:19:00 AM EDT [facility] ([facility]) Name Value Range Interpretation Code Description Data Pratima rce(s) Supporting Document(s) Erythrocytes [#/volume] in Blood by Automated count 4.45 x10*6/UL 4.2 0-6.30 [facility] ([facility]) Leukocytes [#/volume] in Blood by Automated count 5.8 x10*3/UL 4.1-10 .9 [facility] ([facility]) Hemoglobin [Mass/volume] in Blood 12.7 g/dL 12.0-18.0 [facility] ([facility]) Hematocrit [Volume Fraction] of Blood by Automated count 37.6 % 3 7.0-51.0 [facility] ([facility]) MCV 84.3 fL 80.0-97.0 [facility]) MCH 28.5 pg 26.0-32.0 [facility] ([facility]) MCHC 33.8 g/dL 31.0-38.0 [facility] ([facility]) Erythrocyte distribution width [Ratio] by Automated count 13.7 % 11.6-13.7 [facility] ([facility]) Platelets [#/volume] in Blood by Automated count 349 x10*3/UL 140-440 [facility] ([facility]) MPV 7.8 FL 7.8-11.0 [facility] ([facility]) Lymph % 32.3 % 10.0-58.5 [facility] ([facility]) Mid % 6.6 % 1.7-9.3 [facility] ([facility]) Neut % 61.1 % 37.0-92.0 [facility] ([facility]) Lymph # 1.8 x10*3/UL 0.6-4.1 [facility] ([facility]) Mid # 0.5 x10*3/UL 0.1-0.6 [facility] ([facility]) Neut # 3.5 x10*3/UL 2.0-7.8 [facility] ([facility]) ID Date Data Source [id number] 07/03/2020 09:37:00 AM EDT [facility] ([facility]) Name Value Range Interpretation Code Description Data Pratima rce(s) Supporting Document(s) Phosphate [Moles/volume] in Serum or Plasma 3.8 mg/dL 2.5-4.9 [facility] ([facility]) ID Date Data Source [id number] 07/03/2020 09:36:00 AM EDT [facility] ([facility]) Name Value Range Interpretation Code Description Data Pratima rce(s) Supporting Document(s) Magnesium 2.1 mg/dL 1.8-2.4 [facility] ([facility]) ID Date Data Source [id number] 07/03/2020 09:36:00 AM EDT [facility] ([facility]) Name Value Range Interpretation Code Description Data Pratima rce(s) Supporting Document(s) Urea nitrogen [Mass/volume] in Serum or Plasma 10 mg/dL 7-18 [facility] ([facility]) Glucose [Mass/volume] in Serum or Plasma 93 mg/dL 74-99 [facility] ([facility]) 100-125 mg/dL PRE-DIABETES/FASTING >126 mg/dL DIABETES/FASTING Sodium [Moles/volume] in Serum or Plasma 143 meq/L 136-145 [facility] ([facility]) Creatinine 0.7 mg/dL 0.6-1.3 [facility] ([facility]) Potassium [Moles/volume] in Serum or Plasma 4.2 meq/L 3.5-5.1 [facility] ([facility]) Chloride [Moles/volume] in Serum or Plasma 104 meq/L 98-107 [facility] Carbon dioxide, total [Moles/volume] in Serum or Plasma 32 meq/L 21 -32 [facility] ([facility]) Calcium [Mass/volume] in Serum or Plasma 9.2 mg/dL 8.5-10.1 [facility] Glomerular filtration rate/1.73 sq M pre dicted among blacks [Volume Rate/Area] in Serum or Plasma by Creatinine-based formula (MDRD) Laboratory test result [facility]) <content>CHRONIC KIDNEY DISEASE STAGING PER NKF</content>
<content></content>
<content>STAGE I & II GFR >= 60 NORMAL TO MILDLY DECREASED</content>
<content>STAGE III GFR 30-59 MODERATELY DECREASED</content>
<content>STAGE IV GFR 15-29 SEVERELY DECREASED</content>
<content>STAGE V GFR <15 VERY LITTLE GFR LEFT</content>
<content>ESRD GFR <15 ON MACHINE BINDING FOLDER</content>
<content></content> Glomerular filtration rate/1.73 sq M pre dicted among non-blacks [Volume Rate/Area] in Serum or Plasma by Creatinine-based formula (MDRD) Laboratory test result [facility] ) ID Date Data Source [id number] 06/09/2020 10:18:00 AM EDT [facility] Name Value Range Interpretation Code Description Data Pratima rce(s) Supporting Document(s) Amylase [Enzymatic activity/volume] in Serum or Plasma 32 U/L 25- 115 [facility] Lipoprotein lipase [Enzymatic activity/volume] in Serum or P lasma 126 U/L 73-393 [facility] ([facility]) ID Date Data Source [id number] 06/09/2020 10:16:00 AM EDT [facility] ([facility]) Name Value Range Interpretation Code Description Data Pratima rce(s) Supporting Document(s) Glucose [Mass/volume] in Serum or Plasma 92 mg/dL 74-99 [facility] ([facility]) 100-125 mg/dL PRE-DIABETES/FASTING >126 mg/dL DIABETES/FASTING Urea nitrogen [Mass/volume] in Serum or Plasma 5 mg/dL 7-18 [facility] ([facility]) Sodium [Moles/volume] in Serum or Plasma 140 meq/L 136-145 [facility] ([facility]) Creatinine 0.7 mg/dL 0.6-1.3 [facility] ([facility]) Chloride [Moles/volume] in Serum or Plasma 104 meq/L 98-107 [facility] ([facility]) Potassium [Moles/volume] in Serum or Plasma 4.3 meq/L 3.5-5.1 [facility] ([facility]) Calcium [Mass/volume] in Serum or Plasma 9.2 mg/dL 8.5-10.1 [facility] ([facility]) Carbon dioxide, total [Moles/volume] in Serum or Plasma 28 meq/L 21 -32 [facility] ([facility]) Aspartate aminotransferase [Enzymatic activity/volume] in Serum or Plasma 20 U/L 15-37 [facility] ([facility] ) Total Bilirubin 0.4 mg/dL 0.2-1.0 [facility] ([facility]) Alkaline phosphatase isoenzyme [Units/volume] in Serum or Pl asma 48 mg/dL 46-116 [facility] ([facility]) Alanine aminotransferase [Enzymatic activity/volume] in Seru m or Plasma 19 U/L 12-78 [facility] ([facility]) Proteinase 3 Ab [Units/volume] in Serum 7.3 g/dL 6.4-8.2 [facility] ([facility]) Albumin [Mass/volume] in Serum or Plasma 4.1 g/dL 3.4-5.0 [facility] ([facility]) Glomerular filtration rate/1.73 sq M pre dicted among non-blacks [Volume Rate/Area] in Serum or Plasma by Creatinine-based formula (MDRD) Laboratory test result [facility] A/G Ratio 1.28 CALC 1.00-1.90 [facility]) Glomerular filtration rate/1.73 sq M pre dicted among blacks [Volume Rate/Area] in Serum or Plasma by Creatinine-based formula (MDRD) Laboratory test result [facility] <content>CHRONIC KIDNEY DISEASE STAGING PER NKF</content>
<content></content>
<content>STAGE I & II GFR >= 60 NORMAL TO MILDLY DECREASED</content>
<content>STAGE III GFR 30-59 MODERATELY DECREASED</content>
<content>STAGE IV GFR 15-29 SEVERELY DECREASED</content>
<content>STAGE V GFR <15 VERY LITTLE GFR LEFT</content>
<content>ESRD GFR <15 ON MACHINE BINDING FOLDER</content>
<content></content> ID Date Data Source [id number] 06/09/2020 10:16:00 AM EDT [facility] Name Value Range Interpretation Code Description Data Pratima rce(s) Supporting Document(s) Erythrocytes [#/volume] in Blood by Automated count 4.58 x10*6/UL 4.2 0-6.30 [facility] Leukocytes [#/volume] in Blood by Automated count 3.6 x10*3/UL 4.1-10 .9 [facility] MCV 84.8 fL 80.0-97.0 [facility] ([facility]) Hemoglobin [Mass/volume] in Blood 13.0 g/dL 12.0-18.0 [facility] Hematocrit [Volume Fraction] of Blood by Automated count 38.9 % 3 7.0-51.0 [facility] MCHC 33.6 g/dL 31.0-38.0 [facility] ([facility]) MCH 28.5 pg 26.0-32.0 [facility] ([facility]) Platelets [#/volume] in Blood by Automated count 274 x10*3/UL 140-440 [facility] Erythrocyte distribution width [Ratio] by Automated count 13.6 % 11.6-13.7 [facility] MPV 7.7 FL 7.8-11.0 [facility] Lymph % 30.8 % 10.0-58.5 [facility]) Lymph # 1.1 x10*3/UL 0.6-4.1 [facility] ([facility]) Mid % 7.6 % 1.7-9.3 [facility] ([facility]) Neut % 61.6 % 37.0-92.0 [facility] ([facility]) Neut # 2.2 x10*3/UL 2.0-7.8 [facility] ([facility]) Mid # 0.3 x10*3/UL 0.1-0.6 [facility] ([facility]) ID Date Data Source [id number] 01/20/2020 10:06:00 AM EST [facility] ([facility]) Name Value Range Interpretation Code Description Data Pratima rce(s) Supporting Document(s) Phosphate [Moles/volume] in Serum or Plasma 3.7 mg/dL 2.5-4.9 [facility] ([facility]) ID Date Data Source [id number] 01/20/2020 10:06:00 AM EST [facility] ([facility]) Name Value Range Interpretation Code Description Data Pratima rce(s) Supporting Document(s) Magnesium 2.0 mg/dL 1.8-2.4 [facility] ([facility]) ID Date Data Source [id number] 01/20/2020 10:06:00 AM EST [facility] ([facility]) Name Value Range Interpretation Code Description Data Pratima rce(s) Supporting Document(s) Glucose [Mass/volume] in Serum or Plasma 80 mg/dL 74-99 [facility] ([facility]) 100-125 mg/dL PRE-DIABETES/FASTING >126 mg/dL DIABETES/FASTING Urea nitrogen [Mass/volume] in Serum or Plasma 13 mg/dL 7-18 [facility] ([facility]) Sodium [Moles/volume] in Serum or Plasma 142 meq/L 136-145 [facility] ([facility]) Creatinine 0.7 mg/dL 0.6-1.3 [facility] ([facility]) Potassium [Moles/volume] in Serum or Plasma 4.9 meq[facility]L 3.5-5.1 [facility] Chloride [Moles/volume] in Serum or Plasma 105 meq/L 98-107 [facility] ([facility]) Carbon dioxide, total [Moles/volume] in Serum or Plasma 31 meq/L 21 -32 [facility] Calcium [Mass/volume] in Serum or Plasma 9.3 mg/dL 8.5-10.1 [facility] ([facility]) Glomerular filtration rate/1.73 sq M pre dicted among non-blacks [Volume Rate/Area] in Serum or Plasma by Creatinine-based formula (MDRD) Laboratory test result [facility] Glomerular filtration rate/1.73 sq M pre dicted among blacks [Volume Rate/Area] in Serum or Plasma by Creatinine-based formula (MDRD) Laboratory test result [facility] <content>CHRONIC KIDNEY DISEASE STAGING PER NKF</content>
<content></content>
<content>STAGE I & II GFR >= 60 NORMAL TO MILDLY DECREASED</content>
<content>STAGE III GFR 30-59 MODERATELY DECREASED</content>
<content>STAGE IV GFR 15-29 SEVERELY DECREASED</content>
<content>STAGE V GFR <15 VERY LITTLE GFR LEFT</content>
<content>ESRD GFR <15 ON MACHINE BINDING FOLDER</content>
<content></content> Procedure Social History No Information Vital Signs ID Date Data Source UNK Name Value Range Interpretation Code Description Data Source(s) Systolic blood pressure 130 mm[Hg] 130 [facility]Hg] [facility] Diastolic blood pressure 82 mm[Hg] 82 mm[Hg] [facility] ([facility]) Heart rate 71 /min 71 /min [facility] ([facility]) Body height 66 [in_i] 66 [in_i] [facility] ([facility]) 5'6" Body weight 132.00 [lb_av] 132.00 [lb_av] [facility] ([facility]) Oxygen saturation in Arterial blood by Pulse oximetry 97 % 97 % [facility] ([facility]) Body mass index (BMI) [Ratio] 21.3 kg/m2 21.3 k g/m2 [facility] ([facility]) Systolic blood pressure 161 mm[Hg] 161 mm[Hg] [facility] ([facility]) Diastolic blood pressure 91 mm[Hg] 91 mm[Hg] [facility] ([facility]) Body height 67 [in_i] 67 [in_i] [facility] ([facility]) 5'7" Body weight 150.00 [lb_av] 150.00 [lb_av] [facility] ([facility]) Body mass index (BMI) [Ratio] 23.5 kg/m2 23.5 k g/m2 [facility] ([facility]) [place] body weight 135 [lb_av] 135 [lb_av[facility] Body weight 68.040 kg 68.040 kg [facility] ([facility]) Body surface area Derived from formula 1.79 m2 1.79 m2 [facility] ([facility]) Body mass index (BMI) [Ratio] 22.0 kg/m2 22.0 k g/m2 [facility] ([facility]) Systolic blood pressure 128 mm[Hg] 128 mm[Hg] [facility] ([facility]) Diastolic blood pressure 70 mm[Hg] 70 mm[Hg] [facility] ([facility]) Heart rate 68 /min 68 /min [facility] ([facility]) Body height 66 [in_i] 66 [in_i] [facility] ([facility]) 5'6" Body weight 136.12 [lb_av] 136.12 [lb_av] [facility] Oxygen saturation in Arterial blood by Pulse oximetry 97 % 97 % [facility] ([facility]) RM Air Systolic blood pressure 175 mm[Hg] 175 mm[Hg] [facility] ([facility]) Diastolic blood pressure 75 mm[Hg] 75 mm[Hg] [facility] ([facility]) Body height 67 [in_i] 67 [in_i] [facility] ([facility]) 5'7" Body weight 140.50 [lb_av] 140.50 [lb_av] [facility] ([facility]) Body mass index (BMI) [Ratio] 22.0 kg/m2 22.0 k g/m2 [facility] ([facility]) [place] body weight 135 [lb_av] 135 [lb_av] [facility] ([facility]) Body weight 63.731 kg 63.731 kg [facility] ([facility]) Body surface area Derived from formula 1.74 m2 1.74 m2 [facility] ([facility]) Body height 67 [in_i] 67 [in_i] [facility] ([facility]) 5'7" Body weight 140.50 [lb_av] 140.50 [lb_av] [facility] ([facility]) Body mass index (BMI) [Ratio] 22.0 kg/m2 22.0 k g/m2 [facility] ([facility]) [place] body weight 135 [lb_av] 135 [lb_av] [facility] ([facility]) Body weight 63.731 kg 63.731 kg [facility] Body surface area Derived from formula 1.74 m2 1.74 m2 [facility] ([facility]) Systolic blood pressure 120 mm[Hg] 120 mm[Hg] [facility] ([facility]) Diastolic blood pressure 70 mm[Hg] 70 mm[Hg] [facility] ([facility]) Body height 66 [in_i] 66 [in_i] [facility] ([facility]) 5'6" Body weight 145.00 [lb_av] 145.00 [lb_av] [facility] ([facility]) Body mass index (BMI) [Ratio] 23.4 kg/m2 23.4 k g/m2 [facility] ([facility]) Body temperature 96.8 [degF] 96.8 [degF] [facility] ([facility])
[2021-01-04] MEDS ORDERED: propofoL 200 MG/20 ML VIAL As Ordered ONE (11:25)
[2021-01-04] MEDS ORDERED: LIDOCAINE 2% 100MG/5ML SDV (FOR ANES.) As Ordered ONE (11:25)
--- NOTE | 2021-01-04 11:52 | ROOR ---
Patient Name: Stephenie Nichols Procedure Date: 01/04/2021 11:37 AM Date of : 1945 Age: 75 Room: [facility] Gender: Female Note Status: Finalized Procedure: Upper GI endoscopy Indications: Epigastric abdominal pain, Nausea Providers: Adam Chand MD Referring MD: OLGA CASAS JR, MD Requesting Provider: Medicines: Monitored Anesthesia Care Complications: No immediate complications. Procedure: Pre-Anesthesia Assessment: - The heart rate, respiratory rate, oxygen saturations, blood pressure, adequacy of pulmonary ventilation, and response to care were monitored throughout the procedure. The Endoscope was introduced through the mouth, and advanced to the second part of duodenum. The upper GI endoscopy was accomplished without difficulty. The patient tolerated the procedure well. Findings: Small Hiatal Hernia. The esophagus was normal. The stomach was normal. The examined duodenum was normal. Impression: - Small Hiatal Hernia. - Normal esophagus. - Normal stomach. - Normal examined duodenum. - No specimens collected. Recommendation: - Perform a colonoscopy today. Procedure Code(s): --- Professional --- 75481, Esophagogastroduodenoscopy, flexible, transoral; diagnostic, including collection of specimen(s) by brushing or washing, when performed (separate procedure) Diagnosis Code(s): --- Professional --- R11.0, Nausea R10.13, Epigastric pain CPT copyright 2019 [employer]. All rights reserved. The codes documented in this report are preliminary and upon fellmongering machine operator review may be revised to meet current compliance requirements. Adam Chand MD Adam Chand MD 01/04/2021 11:52:23 AM Electronically signed by Adam Chand MD Number of Addenda: 0 Note Initiated On: 01/04/2021 11:37 AM Estimated Blood Loss: Estimated blood loss: none.
--- NOTE | 2021-01-04 12:22 | ROOR ---
Patient Name: Stephenie Nichols Procedure Date: 01/04/2021 11:38 AM Date of : 1945 Age: 75 Room: [facility] Gender: Female Note Status: Finalized Procedure: Colonoscopy Indications: Generalized abdominal pain, Hematochezia, Change in bowel habits, constipation/diarrhea Providers: Adam Chand MD Referring MD: OLGA CASAS JR, MD Requesting Provider: Medicines: Monitored Anesthesia Care Complications: No immediate complications. Procedure: Pre-Anesthesia Assessment: - The heart rate, respiratory rate, oxygen saturations, blood pressure, adequacy of pulmonary ventilation, and response to care were monitored throughout the procedure. The Colonoscope was introduced through the anus and advanced to 10 cm into the ileum. The colonoscopy was performed without difficulty. The patient tolerated the procedure well. The quality of the bowel preparation was good. Findings: Skin tags were found on perianal exam. Mild sigmoid diverticulosis and small internal hemorrhoids. The exam was otherwise normal throughout the examined colon. The terminal ileum appeared normal. Biopsies for histology were taken with a cold forceps for evaluation of microscopic colitis. The colon (entire examined portion) was redundant. Impression: - Perianal skin tags found on perianal exam. - Mild sigmoid diverticulosis. - Small internal hemorrhoids. - Redundant, but otherwise normal colon. - The examined portion of the ileum was normal. - Biopsies were taken with a cold forceps for evaluation of microscopic colitis. Recommendation: - Telephone endoscopist for pathology results in 2 weeks. Procedure Code(s): --- Professional --- 22396, Colonoscopy, flexible; with biopsy, single or multiple Diagnosis Code(s): --- Professional --- Q43.8, Other specified congenital malformations of intestine R19.4, Change in bowel habit K92.1, Melena (includes Hematochezia) R10.84, Generalized abdominal pain K64.4, Residual hemorrhoidal skin tags CPT copyright 2019 [employer]. All rights reserved. The codes documented in this report are preliminary and upon grazing aide review may be revised to meet current compliance requirements. Adam Chand MD Adam Chand MD 01/04/2021 12:21:58 PM Electronically signed by Adam Chand MD Number of Addenda: 0 Note Initiated On: 01/04/2021 11:38 AM Estimated Blood Loss: Estimated blood loss: none.
[2021-01-04 12:35] VITALS: BP 139/74
== END 2021-01-04 12:52 | disposition home or self-care (01) ==
LOC: M OPP 09:35
PROVIDERS: ATTEND Internal Medicine Gastroenterology
DX: Q43.8 Other specified congenital malformations of intestine (principal); K64.8 Other hemorrhoids; K92.1 Melena; K64.4 Residual hemorrhoidal skin tags; R10.84 Generalized abdominal pain; Z79.891 Long term (current) use of opiate analgesic; Z79.899 Other long term (current) drug therapy; Z87.891 Personal history of nicotine dependence

== ENCOUNTER → 2021-01-11 | Outpatient (REF) | payer MEDICARE ==
[~2021-01-11] MED LIST changes: -NS 1,000 ML IV ONE
== END ==
LOC: M LAB REF 11:18
PROVIDERS: ATTEND Internal Medicine
DX: M81.0 Age-related osteoporosis without current pathological fracture (principal)

== ENCOUNTER → 2021-07-11 | Outpatient (REF) | payer MEDICARE | LOC: M LAB REF 12:19 | PROVIDERS: ATTEND Internal Medicine | DX: Z51.81 Encounter for therapeutic drug level monitoring (principal); Z79.899 Other long term (current) drug therapy ==

== ENCOUNTER 2021-07-17 09:38 | Inpatient (IN) | payer MEDICARE ==
[~2021-07-17] VITALS: Ht 172.7 cm; Wt 56.4 kg
[~2021-07-17 09:38] MED LIST changes: -ALBU8.5H INH; -CEFD300C41 PO; -DOXY-443 PO; -PRED20TA PO
[2021-07-17 10:29] LABS: VENOUS BASE EXCESS 0.1 (-2.0-2.0); VENOUS HCO3 25.4 MEQ/L (23.0-27.0); VENOUS O2 SATURATION 69.8 % (60.0-80.0); VENOUS PARTIAL PRESSURE CO2 43.8 mmHg (38.0-50.0); VENOUS PARTIAL PRESSURE O2 35.7 mmHg (30.0-50.0); VENOUS PH 7.382 UNITS (7.330-7.430); VENOUS TOTAL CO2 26.8 MEQ/L (24.0-28.0)
[2021-07-17 10:32] LABS: BASO % 0.2 % (0.0-1.0); HEMATOCRIT 37.1 % (36.0-47.0); LYMPH # 0.7 10^3/uL (1.5-5.0); LYMPH % 7.2 % (24.0-44.0); MEAN CORPUSCULAR HEMOGLOBIN 27.5 pg (27.0-33.0); MEAN CORPUSCULAR HGB CONC 32.3 g/dl (32.0-36.5); MEAN CORPUSCULAR VOLUME 85.1 fl (80.0-96.0); MONO # 0.3 10^3/uL (0.0-0.8); MONO % 2.8 % (2.0-8.0); NEUTROPHILS # 8.2 10^3/uL (1.5-8.5); NEUTROPHILS % 89.4 % (36.0-66.0); PLATELET COUNT, AUTOMATED 550 10^3/uL (150-450); RED BLOOD COUNT 4.36 10^6/uL (4.00-5.40); WHITE BLOOD COUNT 9.2 10^3/uL (4.0-10.0)
[2021-07-17 11:05] LABS: ALBUMIN 3.3 GM/DL (3.2-5.2); ALT/SGPT 12 U/L (12-78); BILIRUBIN,DIRECT 0.1 MG/DL (0.0-0.2); BILIRUBIN,TOTAL 0.5 MG/DL (0.2-1.0); BLOOD UREA NITROGEN 12 MG/DL (7-18); CALCIUM LEVEL 9.8 MG/DL (8.8-10.2); CARBON DIOXIDE LEVEL 24 MEQ/L (21-32); CHLORIDE LEVEL 107 MEQ/L (98-107); CREATININE FOR GFR 0.72 MG/DL (0.55-1.30); GLOMERULAR FILTRATION RATE > 60.0 (>39); GLUCOSE, FASTING 124 MG/DL (70-100); POTASSIUM SERUM 4.4 MEQ/L (3.5-5.1); SODIUM LEVEL 139 MEQ/L (136-145); TOTAL PROTEIN 7.2 GM/DL (6.4-8.2)
[2021-07-17] MEDS ORDERED: cefTRIAXone SOD 1 GM in D5W MINI-BAG PLUS 50 ML IV ONE (11:10)
[2021-07-17] MEDS ORDERED: AZITHROMYCIN INJ 500 MG, VIAL MATE ADAPTER 1 EACH in NS 250 ML IV ONE (11:10)
[2021-07-17] MEDS ORDERED: ISOVUE-370 76% 100ML VIAL As Ordered ONE (11:22)
[2021-07-17] MEDS ORDERED: ALBU8.5H INH (13:52)
[2021-07-17] MEDS ORDERED: PRED20TA PO (13:52)
[2021-07-17] MEDS ORDERED: DOXY-443 PO (13:52)
[2021-07-17] MEDS ORDERED: HOME MED LIST COMPLETE! XX SCH (13:55)
[2021-07-17 15:26] LABS: LDH LACTATE DEHYDROGENASE 160 U/L (84-246)
[2021-07-17] MEDS ORDERED: cefTRIAXone SOD 1 GM in D5W MINI-BAG PLUS 50 ML IV SCH (16:00)
[2021-07-17 16:32] LABS: APPEARANCE, BODY FLUID HAZY (CLEAR); PLEURAL FL COLOR YELLOW (COLORLESS); SOURCE, BODY FLUID PLEURAL
[2021-07-17 16:33] LABS: PH BODY FLUID 7.583 UNITS (NOT ESTABLISHED); SOURCE, BODY FLUID pH PLEURAL
[2021-07-17 16:36] LABS: LDH, BODY FLUID 161 U/L (NOT ESTABLISHED); SOURCE, BODY FLUID GLUCOSE PLEURAL; SOURCE, BODY FLUID LDH PLEURAL; SOURCE, BODY FLUID TOT PROTEIN PLEURAL; TOTAL PROTEIN, BODY FLUID 5.3 G/DL (NOT ESTABLISHED)
[2021-07-17 16:40] VITALS: BP 178/94
[2021-07-17] MEDS ORDERED: DENOSUMAB 60MG/1ML SYRINGE (PROLIA) SC SCH (16:45)
[2021-07-17 16:55] VITALS: BP 143/77
[2021-07-17] MEDS: DOXYCYCLINE HYCLATE 100 MG in D5W MINI-BAG PLUS 100 ML IV SCH (17:05)
[2021-07-17 17:25] VITALS: BP 168/86
[2021-07-17 17:55] VITALS: BP 152/81
[2021-07-17 18:00] LABS: PROTHROMBIN TIME 13.6 SECONDS (12.7-14.5)
[2021-07-17] MEDS: GABAPENTIN 300 MG CAP PO SCH (20:12)
[2021-07-17] MEDS: predniSONE 20 MG TAB PO SCH (20:12)
[2021-07-17 20:23] VITALS: BP 147/86
[2021-07-18] MEDS: DOXYCYCLINE HYCLATE 100 MG in D5W MINI-BAG PLUS 100 ML IV SCH (02:08)
[2021-07-18 05:30] VITALS: BP 136/78
[2021-07-18] MEDS: GABAPENTIN 300 MG CAP PO SCH (08:40)
[2021-07-18 08:51] LABS: HEMATOCRIT 36.7 % (36.0-47.0); MEAN CORPUSCULAR HEMOGLOBIN 27.8 pg (27.0-33.0); MEAN CORPUSCULAR HGB CONC 32.7 g/dl (32.0-36.5); PLATELET COUNT, AUTOMATED 585 10^3/uL (150-450); RED BLOOD COUNT 4.32 10^6/uL (4.00-5.40); WHITE BLOOD COUNT 9.3 10^3/uL (4.0-10.0)
[2021-07-18 09:21] LABS: BLOOD UREA NITROGEN 12 MG/DL (7-18); CALCIUM LEVEL 9.1 MG/DL (8.8-10.2); CARBON DIOXIDE LEVEL 25 MEQ/L (21-32); CHLORIDE LEVEL 108 MEQ/L (98-107); GLOMERULAR FILTRATION RATE > 60.0 (>39); GLUCOSE, FASTING 107 MG/DL (70-100); SODIUM LEVEL 139 MEQ/L (136-145)
[2021-07-18] MEDS: predniSONE 20 MG TAB PO SCH (10:01)
[2021-07-18] MEDS ORDERED: ISOVUE-370 76% 100ML VIAL As Ordered ONE (11:12)
[2021-07-18] MEDS ORDERED: CEFD300C41 PO (11:36)
[2021-07-20 16:08] LABS: BODY FLUID CULTURE Not indicated. (.); LEGIONELLA ANTIGEN URINE Negative (Negative); ORGANISM ID Not indicated. (.); SPECIMEN SOURCE Urine (.); URINE STREP PNEUMONIAE ANTIGEN Negative (Negative)
== END 2021-07-18 12:47 | disposition home or self-care (01) | DRG 181 ==
LOC: M ED 09:38 → ENRESERV 15:00 → M ED 15:35 → M MSPAV 15:36
PROVIDERS: ADMIT Internal Medicine; ATTEND Internal Medicine
PROC: 0W993ZZ Drainage of Right Pleural Cavity, Percutaneous Approach (ICD-10-PCS; principal; 2021-07-17 15:30)
DX: C34.11 Malignant neoplasm of upper lobe, right bronchus or lung (principal); J90 Pleural effusion, not elsewhere classified; M19.90 Unspecified osteoarthritis, unspecified site; Z87.891 Personal history of nicotine dependence; Z79.899 Other long term (current) drug therapy

== ENCOUNTER → 2021-07-17 | Outpatient (CLI) | payer MEDICARE ==
[~2021-07-17] MED LIST changes: +ALBU8.5H INH; +CEFD300C41 PO; +DOXY-443 PO; +PRED20TA PO
== END ==
LOC: M WUC 09:04
PROVIDERS: ATTEND Physician Assistant
DX: R06.02 Shortness of breath (principal); J20.9 Acute bronchitis, unspecified; R91.8 Other nonspecific abnormal finding of lung field

== ENCOUNTER → 2021-07-27 | Outpatient (CLI) | payer MEDICARE ==
[~2021-07-27] MED LIST changes: +ALBU8.5H INH; +CEFD300C41 PO; +DOXY-443 PO; +PRED20TA PO
== END ==
LOC: M WUC 10:30
PROVIDERS: ATTEND Internal Medicine
DX: J90 Pleural effusion, not elsewhere classified (principal); R91.8 Other nonspecific abnormal finding of lung field; J84.10 Pulmonary fibrosis, unspecified

== ENCOUNTER → 2021-08-28 | Outpatient (CLI) | payer MEDICARE ==
[~2021-08-28] MED LIST changes: -GLUCTAB6 PO; +GLUCTAB7 PO
== END ==
LOC: M PLARAD 10:08
PROVIDERS: ATTEND Internal Medicine Hematology & Oncology
DX: C34.11 Malignant neoplasm of upper lobe, right bronchus or lung (principal); R90.82 White matter disease, unspecified
CPT/HCPCS: 78815; A9552

== ENCOUNTER → 2021-08-30 | Outpatient (CLI) | payer MEDICARE ==
[~2021-08-30] MED LIST changes: +PROHANCE 279.3MG/ML 5ML VIAL As Ordered ONE
== END ==
LOC: M RAD 12:54
PROVIDERS: ATTEND Internal Medicine Hematology & Oncology
DX: C34.90 Malignant neoplasm of unspecified part of unspecified bronchus or lung (principal); R90.82 White matter disease, unspecified
CPT/HCPCS: 70553; A9576

== ENCOUNTER 2021-10-01 18:41 | Inpatient (IN) | payer MEDICARE ==
[~2021-10-01] VITALS: Ht 170.2 cm; Wt 49.3 kg
[~2021-10-01 18:41] MED LIST changes: -PROHANCE 279.3MG/ML 5ML VIAL As Ordered ONE
[2021-10-01 20:42] LABS: BASO % 0.3 % (0.0-1.0); EOS # 0.3 10^3/uL (0.0-0.5); EOS % 1.8 % (0.0-3.0); HEMATOCRIT 28.2 % (36.0-47.0); LYMPH # 0.9 10^3/uL (1.5-5.0); LYMPH % 6.1 % (24.0-44.0); MEAN CORPUSCULAR HEMOGLOBIN 24.3 pg (27.0-33.0); MEAN CORPUSCULAR HGB CONC 31.9 g/dl (32.0-36.5); MEAN CORPUSCULAR VOLUME 76.2 fl (80.0-96.0); MONO # 1.2 10^3/uL (0.0-0.8); MONO % 8.4 % (2.0-8.0); NEUTROPHILS # 12.1 10^3/uL (1.5-8.5); NEUTROPHILS % 82.9 % (36.0-66.0); PLATELET COUNT, AUTOMATED 548 10^3/uL (150-450); WHITE BLOOD COUNT 14.6 10^3/uL (4.0-10.0)
[2021-10-01 21:09] LABS: ABG BASE EXCESS -0.9 (-2.0-2.0); ABG HCO3 23.4 MEQ/L (22.0-26.0); ABG O2 SATURATION 97.2 % (95.0-99.0); ABG PARTIAL PRESSURE CO2 37.3 mmHg (35.0-45.0); ABG PARTIAL PRESSURE O2 83.8 mmHg (75.0-100.0); ABG STANDARD HCO3 23.7 MEQ/L (22.0-26.0); ABG TOTAL CO2 24.6 MEQ/L (23.0-31.0); ABG pH (ARTERIAL) 7.416 UNITS (7.350-7.450)
[2021-10-01 21:12] LABS: CREATININE FOR GFR 1.01 MG/DL (0.55-1.30); GLOMERULAR FILTRATION RATE 56.9 (>39); POTASSIUM SERUM 4.7 MEQ/L (3.5-5.1)
[2021-10-01 21:13] LABS: BILIRUBIN,TOTAL 0.3 MG/DL (0.2-1.0); CALCIUM LEVEL 7.7 MG/DL (8.8-10.2); FREE T4 1.21 NG/DL (0.76-1.46); MAGNESIUM LEVEL 1.8 MG/DL (1.8-2.4); THYROID STIMULATING HORMONE 0.729 uIU/ML (0.358-3.740); TOTAL PROTEIN 5.1 GM/DL (6.4-8.2)
[2021-10-01 21:14] LABS: D-DIMER QUANT > 4000 ng/ml (<500)
[2021-10-01] MEDS ORDERED: ISOVUE-370 76% 100ML VIAL As Ordered ONE (21:19)
[2021-10-01 22:00] LABS: CK-MB VALUE MASS < 1.0 NG/ML (<3.6); CPK CREATINE PHOSPHOKINASE 51 U/L (26-192); MB/CK RELATIVE INDEX 1.96 (< OR =4)
[2021-10-01] MEDS ORDERED: GLUCTAB7 PO (22:49)
[2021-10-01] MEDS ORDERED: VITA200044 PO (22:49)
[2021-10-01] MEDS ORDERED: OYST500T8 PO (22:49)
[2021-10-01] MEDS ORDERED: XALK250C PO (22:49)
[2021-10-01] MEDS ORDERED: ONDA4TAB6 PO (22:49)
[2021-10-01] MEDS ORDERED: HOME MED LIST COMPLETE! XX SCH (22:50)
[2021-10-01 23:43] LABS: INR 1.13; PROTHROMBIN TIME 14.9 SECONDS (12.7-14.5)
[2021-10-01 23:44] LABS: PARTIAL THROMBOPLASTIN TIME 41.4 SECONDS (25.9-37.0)
[2021-10-02] VITALS (18 sets, daily range): BP systolic 111–141; BP diastolic 55–74; O2SAT 89–99
[2021-10-02] MEDS ORDERED: MOM 30ML SUSPENSION UDC PO PRN (00:35)
[2021-10-02] MEDS ORDERED: cefTRIAXone SOD 2 GM in D5W MINI-BAG PLUS 50 ML IV ONE (02:00)
[2021-10-02] MEDS ORDERED: cefTRIAXone SOD 1 GM in D5W MINI-BAG PLUS 50 ML IV SCH (02:00)
[2021-10-02] MEDS ORDERED: ENOXAPARIN 60MG/0.6ML SYRINGE (J1650 PER 10MG) SC ONE (02:00)
[2021-10-02] MEDS: dexameTHASONE 4 MG/ML 1ML VIAL (J1100 PER 1MG) IV SCH ×2 (02:18→15:07)
[2021-10-02] MEDS: ACETAMINOPHEN TAB 650MG DOSE (2X325MG) PO PRN ×2 (02:18→16:44)
[2021-10-02] MEDS: DOXYCYCLINE HYCLATE 100 MG in D5W MINI-BAG PLUS 100 ML IV SCH ×2 (02:19→15:07)
[2021-10-02] MEDS: PANTOPRAZOLE 40MG VIAL IV SCH (02:20)
[2021-10-02] MEDS ORDERED: guaiFENesin/CODEINE SYRUP 5 ML UDC PO PRN (03:30)
[2021-10-02] MEDS ORDERED: REMDESIVIR 200 MG in NS 250 ML IV ONE (05:00)
[2021-10-02 05:35] LABS: BASO % 0.1 % (0.0-1.0); HEMATOCRIT 28.9 % (36.0-47.0); HEMOGLOBIN 9.2 g/dl (12.0-15.5); LYMPH # 0.8 10^3/uL (1.5-5.0); LYMPH % 4.7 % (24.0-44.0); MEAN CORPUSCULAR HEMOGLOBIN 24.1 pg (27.0-33.0); MEAN CORPUSCULAR HGB CONC 31.8 g/dl (32.0-36.5); MEAN CORPUSCULAR VOLUME 75.7 fl (80.0-96.0); MONO # 0.5 10^3/uL (0.0-0.8); MONO % 3.2 % (2.0-8.0); NEUTROPHILS # 14.9 10^3/uL (1.5-8.5); PLATELET COUNT, AUTOMATED 584 10^3/uL (150-450); RED BLOOD COUNT 3.82 10^6/uL (4.00-5.40); WHITE BLOOD COUNT 16.4 10^3/uL (4.0-10.0)
[2021-10-02 05:44] LABS: INR 1.26; PROTHROMBIN TIME 16.3 SECONDS (12.7-14.5)
[2021-10-02 05:45] LABS: FIBRINOGEN 538 MG/DL (268-480); PARTIAL THROMBOPLASTIN TIME 47.4 SECONDS (25.9-37.0)
[2021-10-02] MEDS: IPRATROPIUM 0.5MG/ALBUTEROL 2.5MG INH SOL UD 3ML (DUONEB) NEB SCH ×4 (05:51→19:32)
[2021-10-02 06:06] LABS: D-DIMER QUANT > 4000 ng/ml (<500)
[2021-10-02 06:24] LABS: BLOOD UREA NITROGEN 18 MG/DL (7-18); CREATININE FOR GFR 0.81 MG/DL (0.55-1.30); GLOMERULAR FILTRATION RATE > 60.0 (>39); GLUCOSE, FASTING 172 MG/DL (70-100)
[2021-10-02 06:25] LABS: ALT/SGPT 24 IU/L (0-32); BILIRUBIN,TOTAL 0.3 MG/DL (0.2-1.0); CALCIUM LEVEL 7.8 MG/DL (8.8-10.2); CARBON DIOXIDE LEVEL 23 mmol/L (20-29); CHLORIDE LEVEL 102 MEQ/L (98-107); LDH LACTATE DEHYDROGENASE 282 U/L (84-246); SODIUM LEVEL 134 MEQ/L (136-145); TOTAL PROTEIN 5.3 GM/DL (6.4-8.2)
[2021-10-02 06:26] LABS: FERRITIN 258 NG/ML (8-252); MAGNESIUM LEVEL 1.9 MG/DL (1.8-2.4)
[2021-10-02] MEDS ORDERED: SODIUM CHLORIDE 0.9% INJ 10 ML SYR IV ONE (07:00)
[2021-10-02] MEDS: GABAPENTIN 300 MG CAP PO SCH ×3 (10:34→21:16)
[2021-10-02] MEDS ORDERED: LIDOCAINE 4% CREAM 5GM (LMX4) TOP PRN (11:40)
[2021-10-02] MEDS: BARICITINIB 2MG TABLET (OLUMIANT) FOR EUA PO SCH (12:56)
[2021-10-02] MEDS: LIDOCAINE 5% (LIDODERM) PATCH TD SCH (13:00)
[2021-10-02] MEDS: ENOXAPARIN 60MG/0.6ML SYRINGE (J1650 PER 10MG) SC SCH ×2 (13:12→21:16)
[2021-10-03] VITALS (17 sets, daily range): BP systolic 139–152; BP diastolic 66–75; O2SAT 92–99
[2021-10-03] MEDS: ACETAMINOPHEN TAB 650MG DOSE (2X325MG) PO PRN ×5 (00:31→21:01)
[2021-10-03] MEDS: IPRATROPIUM 0.5MG/ALBUTEROL 2.5MG INH SOL UD 3ML (DUONEB) NEB SCH ×4 (01:16→20:21)
[2021-10-03] MEDS: cefTRIAXone SOD 1 GM in D5W MINI-BAG PLUS 50 ML IV SCH (02:26)
[2021-10-03] MEDS: dexameTHASONE 4 MG/ML 1ML VIAL (J1100 PER 1MG) IV SCH ×2 (02:26→13:37)
[2021-10-03] MEDS: PANTOPRAZOLE 40MG VIAL IV SCH (02:26)
[2021-10-03] MEDS: DOXYCYCLINE HYCLATE 100 MG in D5W MINI-BAG PLUS 100 ML IV SCH ×2 (02:27→14:26)
[2021-10-03] MEDS: REMDESIVIR 100 MG in NS 250 ML IV SCH (04:34)
[2021-10-03 05:31] LABS: HEMATOCRIT 28.3 % (36.0-47.0); HEMOGLOBIN 9.1 g/dl (12.0-15.5); MEAN CORPUSCULAR HEMOGLOBIN 24.1 pg (27.0-33.0); MEAN CORPUSCULAR HGB CONC 32.2 g/dl (32.0-36.5); MEAN CORPUSCULAR VOLUME 74.9 fl (80.0-96.0); PLATELET COUNT, AUTOMATED 678 10^3/uL (150-450); RED BLOOD COUNT 3.78 10^6/uL (4.00-5.40); WHITE BLOOD COUNT 14.8 10^3/uL (4.0-10.0)
[2021-10-03 05:55] LABS: BLOOD UREA NITROGEN 14 MG/DL (7-18); CALCIUM LEVEL 7.9 MG/DL (8.8-10.2); CARBON DIOXIDE LEVEL 24 MEQ/L (21-32); CHLORIDE LEVEL 105 MEQ/L (98-107); CREATININE FOR GFR 0.51 MG/DL (0.55-1.30); GLOMERULAR FILTRATION RATE > 60.0 (>39); GLUCOSE, FASTING 137 MG/DL (70-100); POTASSIUM SERUM 4.7 MEQ/L (3.5-5.1); SODIUM LEVEL 136 MEQ/L (136-145)
[2021-10-03] MEDS: SODIUM CHLORIDE 0.9% INJ 10 ML SYR IV SCH (06:39)
[2021-10-03] MEDS: ENOXAPARIN 60MG/0.6ML SYRINGE (J1650 PER 10MG) SC SCH ×2 (08:11→21:02)
[2021-10-03] MEDS: GABAPENTIN 300 MG CAP PO SCH ×3 (08:11→22:27)
[2021-10-03] MEDS: BARICITINIB 2MG TABLET (OLUMIANT) FOR EUA PO SCH (08:11)
[2021-10-03] MEDS: LIDOCAINE 5% (LIDODERM) PATCH TD SCH (08:12)
[2021-10-04] VITALS (25 sets, daily range): BP systolic 130–144; BP diastolic 63–74; O2SAT 87–100
[2021-10-04] MEDS: IPRATROPIUM 0.5MG/ALBUTEROL 2.5MG INH SOL UD 3ML (DUONEB) NEB SCH ×4 (02:20→19:21)
[2021-10-04] MEDS: PANTOPRAZOLE 40MG VIAL IV SCH (02:22)
[2021-10-04] MEDS: dexameTHASONE 4 MG/ML 1ML VIAL (J1100 PER 1MG) IV SCH ×2 (02:22→13:58)
[2021-10-04] MEDS: DOXYCYCLINE HYCLATE 100 MG in D5W MINI-BAG PLUS 100 ML IV SCH (02:22)
[2021-10-04] MEDS: cefTRIAXone SOD 1 GM in D5W MINI-BAG PLUS 50 ML IV SCH (02:22)
[2021-10-04] MEDS: ACETAMINOPHEN TAB 650MG DOSE (2X325MG) PO PRN ×4 (02:23→21:07)
[2021-10-04] MEDS: REMDESIVIR 100 MG in NS 250 ML IV SCH (04:45)
[2021-10-04] MEDS: SODIUM CHLORIDE 0.9% INJ 10 ML SYR IV SCH (06:04)
[2021-10-04] MEDS: GABAPENTIN 300 MG CAP PO SCH ×3 (06:18→21:06)
[2021-10-04 07:01] LABS: HEMATOCRIT 27.7 % (36.0-47.0); HEMOGLOBIN 8.9 g/dl (12.0-15.5); MEAN CORPUSCULAR HGB CONC 32.1 g/dl (32.0-36.5); MEAN CORPUSCULAR VOLUME 74.7 fl (80.0-96.0); PLATELET COUNT, AUTOMATED 675 10^3/uL (150-450); RED BLOOD COUNT 3.71 10^6/uL (4.00-5.40); WHITE BLOOD COUNT 10.8 10^3/uL (4.0-10.0)
[2021-10-04 07:40] LABS: BLOOD UREA NITROGEN 10 MG/DL (7-18); CALCIUM LEVEL 7.9 MG/DL (8.8-10.2); CARBON DIOXIDE LEVEL 28 MEQ/L (21-32); CHLORIDE LEVEL 106 MEQ/L (98-107); CREATININE FOR GFR 0.49 MG/DL (0.55-1.30); GLOMERULAR FILTRATION RATE > 60.0 (>39); GLUCOSE, FASTING 107 MG/DL (70-100); POTASSIUM SERUM 4.2 MEQ/L (3.5-5.1); SODIUM LEVEL 138 MEQ/L (136-145)
[2021-10-04] MEDS: BARICITINIB 2MG TABLET (OLUMIANT) FOR EUA PO SCH (09:20)
[2021-10-04] MEDS: ENOXAPARIN 60MG/0.6ML SYRINGE (J1650 PER 10MG) SC SCH ×2 (09:21→21:05)
[2021-10-04] MEDS: LIDOCAINE 5% (LIDODERM) PATCH TD SCH (09:21)
[2021-10-04] MEDS: DOXYCYCLINE HYCLATE 100MG TABLET PO SCH ×2 (13:56→21:06)
[2021-10-05] VITALS (15 sets, daily range): BP systolic 131–161; BP diastolic 62–86; O2SAT 90–99
[2021-10-05] MEDS: IPRATROPIUM 0.5MG/ALBUTEROL 2.5MG INH SOL UD 3ML (DUONEB) NEB SCH ×4 (01:58→20:07)
[2021-10-05] MEDS: cefTRIAXone SOD 1 GM in D5W MINI-BAG PLUS 50 ML IV SCH (03:42)
[2021-10-05] MEDS: PANTOPRAZOLE 40MG VIAL IV SCH (03:43)
[2021-10-05] MEDS: dexameTHASONE 4 MG/ML 1ML VIAL (J1100 PER 1MG) IV SCH ×2 (03:43→13:06)
[2021-10-05] MEDS: ACETAMINOPHEN TAB 650MG DOSE (2X325MG) PO PRN ×3 (03:48→21:27)
[2021-10-05] MEDS: REMDESIVIR 100 MG in NS 250 ML IV SCH (05:40)
[2021-10-05] MEDS: GABAPENTIN 300 MG CAP PO SCH ×3 (05:41→21:26)
[2021-10-05] MEDS: SODIUM CHLORIDE 0.9% INJ 10 ML SYR IV SCH (05:41)
[2021-10-05 08:03] LABS: HEMATOCRIT 28.8 % (36.0-47.0); HEMOGLOBIN 9.3 g/dl (12.0-15.5); MEAN CORPUSCULAR HEMOGLOBIN 24.7 pg (27.0-33.0); MEAN CORPUSCULAR HGB CONC 32.3 g/dl (32.0-36.5); MEAN CORPUSCULAR VOLUME 76.6 fl (80.0-96.0); PLATELET COUNT, AUTOMATED 641 10^3/uL (150-450); RED BLOOD COUNT 3.76 10^6/uL (4.00-5.40); WHITE BLOOD COUNT 11.3 10^3/uL (4.0-10.0)
[2021-10-05 08:25] LABS: BLOOD UREA NITROGEN 11 MG/DL (7-18); CARBON DIOXIDE LEVEL 27 MEQ/L (21-32); CHLORIDE LEVEL 106 MEQ/L (98-107); CREATININE FOR GFR 0.49 MG/DL (0.55-1.30); GLOMERULAR FILTRATION RATE > 60.0 (>39); GLUCOSE, FASTING 87 MG/DL (70-100); POTASSIUM SERUM 4.6 MEQ/L (3.5-5.1); SODIUM LEVEL 138 MEQ/L (136-145)
[2021-10-05] MEDS: DOXYCYCLINE HYCLATE 100MG TABLET PO SCH ×2 (09:20→20:44)
[2021-10-05] MEDS: ENOXAPARIN 60MG/0.6ML SYRINGE (J1650 PER 10MG) SC SCH ×2 (09:20→20:44)
[2021-10-05] MEDS: LIDOCAINE 5% (LIDODERM) PATCH TD SCH (09:20)
[2021-10-05] MEDS: BARICITINIB 2MG TABLET (OLUMIANT) FOR EUA PO SCH (09:21)
[2021-10-05] MEDS: MAALOX 30 ML SUSP *UDC PO PRN (12:50)
[2021-10-06] VITALS (15 sets, daily range): BP systolic 128–150; BP diastolic 73–82; O2SAT 94–99
[2021-10-06] MEDS: cefTRIAXone SOD 1 GM in D5W MINI-BAG PLUS 50 ML IV SCH (02:32)
[2021-10-06] MEDS: PANTOPRAZOLE 40MG VIAL IV SCH (02:32)
[2021-10-06] MEDS: dexameTHASONE 4 MG/ML 1ML VIAL (J1100 PER 1MG) IV SCH ×2 (02:32→14:16)
[2021-10-06] MEDS: IPRATROPIUM 0.5MG/ALBUTEROL 2.5MG INH SOL UD 3ML (DUONEB) NEB SCH ×2 (02:57→09:22)
[2021-10-06] MEDS: REMDESIVIR 100 MG in NS 250 ML IV SCH (05:10)
[2021-10-06] MEDS: SODIUM CHLORIDE 0.9% INJ 10 ML SYR IV SCH (05:17)
[2021-10-06] MEDS: GABAPENTIN 300 MG CAP PO SCH ×3 (05:17→21:31)
[2021-10-06 06:18] LABS: HEMATOCRIT 29.5 % (36.0-47.0); HEMOGLOBIN 9.5 g/dl (12.0-15.5); MEAN CORPUSCULAR HEMOGLOBIN 24.4 pg (27.0-33.0); MEAN CORPUSCULAR HGB CONC 32.2 g/dl (32.0-36.5); MEAN CORPUSCULAR VOLUME 75.8 fl (80.0-96.0); PLATELET COUNT, AUTOMATED 565 10^3/uL (150-450); RED BLOOD COUNT 3.89 10^6/uL (4.00-5.40); WHITE BLOOD COUNT 14.1 10^3/uL (4.0-10.0)
[2021-10-06] MEDS: ACETAMINOPHEN TAB 650MG DOSE (2X325MG) PO PRN ×3 (06:31→21:31)
[2021-10-06 06:44] LABS: BLOOD UREA NITROGEN 13 MG/DL (7-18); CALCIUM LEVEL 7.8 MG/DL (8.8-10.2); CARBON DIOXIDE LEVEL 28 MEQ/L (21-32); CHLORIDE LEVEL 105 MEQ/L (98-107); CREATININE FOR GFR 0.49 MG/DL (0.55-1.30); GLOMERULAR FILTRATION RATE > 60.0 (>39); GLUCOSE, FASTING 94 MG/DL (70-100); POTASSIUM SERUM 4.6 MEQ/L (3.5-5.1); SODIUM LEVEL 139 MEQ/L (136-145)
[2021-10-06] MEDS: BARICITINIB 2MG TABLET (OLUMIANT) FOR EUA PO SCH (09:57)
[2021-10-06] MEDS: DOXYCYCLINE HYCLATE 100MG TABLET PO SCH ×2 (09:57→21:31)
[2021-10-06] MEDS: ENOXAPARIN 60MG/0.6ML SYRINGE (J1650 PER 10MG) SC SCH ×2 (09:58→21:31)
[2021-10-06] MEDS: LIDOCAINE 5% (LIDODERM) PATCH TD SCH (09:58)
[2021-10-06 14:02] LABS: CLOSTRIDIUM DIFFICILE PCR POSITIVE (NEGATIVE)
[2021-10-06] MEDS: MAALOX 30 ML SUSP *UDC PO PRN (14:25)
[2021-10-06] MEDS: SIMETHICONE 80MG CHEW TAB PO PRN ×2 (14:25→21:31)
[2021-10-06] MEDS: COMBIVENT RESPIMAT 100-20MCG INHALER 4GM INH SCH ×2 (15:45→20:15)
[2021-10-06] MEDS: VANCOMYCIN ORAL SOL 250MG/5ML ORAL SYRINGE PO SCH ×3 (16:43→23:11)
[2021-10-07] VITALS (13 sets, daily range): BP systolic 109–148; BP diastolic 60–74; O2SAT 92–99
[2021-10-07] MEDS: COMBIVENT RESPIMAT 100-20MCG INHALER 4GM INH SCH ×4 (02:00→19:39)
[2021-10-07] MEDS: dexameTHASONE 4 MG/ML 1ML VIAL (J1100 PER 1MG) IV SCH ×2 (02:08→13:54)
[2021-10-07] MEDS: PANTOPRAZOLE 40MG VIAL IV SCH (02:08)
[2021-10-07] MEDS: cefTRIAXone SOD 1 GM in D5W MINI-BAG PLUS 50 ML IV SCH (02:08)
[2021-10-07] MEDS: VANCOMYCIN ORAL SOL 250MG/5ML ORAL SYRINGE PO SCH ×3 (05:33→18:42)
[2021-10-07] MEDS: ACETAMINOPHEN TAB 650MG DOSE (2X325MG) PO PRN ×3 (05:34→21:30)
[2021-10-07] MEDS: GABAPENTIN 300 MG CAP PO SCH ×3 (05:34→21:30)
[2021-10-07 06:13] LABS: HEMOGLOBIN 10.1 g/dl (12.0-15.5); MEAN CORPUSCULAR HGB CONC 31.6 g/dl (32.0-36.5); MEAN CORPUSCULAR VOLUME 76.2 fl (80.0-96.0); PLATELET COUNT, AUTOMATED 683 10^3/uL (150-450); WHITE BLOOD COUNT 16.7 10^3/uL (4.0-10.0)
[2021-10-07 06:37] LABS: BLOOD UREA NITROGEN 12 MG/DL (7-18); CARBON DIOXIDE LEVEL 27 MEQ/L (21-32); CHLORIDE LEVEL 105 MEQ/L (98-107); GLOMERULAR FILTRATION RATE > 60.0 (>39); GLUCOSE, FASTING 110 MG/DL (70-100); POTASSIUM SERUM 4.2 MEQ/L (3.5-5.1); SODIUM LEVEL 137 MEQ/L (136-145)
[2021-10-07] MEDS: DOXYCYCLINE HYCLATE 100MG TABLET PO SCH ×2 (08:11→21:29)
[2021-10-07] MEDS: BARICITINIB 2MG TABLET (OLUMIANT) FOR EUA PO SCH (08:13)
[2021-10-07] MEDS: LIDOCAINE 5% (LIDODERM) PATCH TD SCH (08:14)
[2021-10-07] MEDS: SIMETHICONE 80MG CHEW TAB PO PRN ×2 (08:14→21:30)
[2021-10-07] MEDS: ENOXAPARIN 60MG/0.6ML SYRINGE (J1650 PER 10MG) SC SCH ×2 (08:14→21:30)
[2021-10-07] MEDS: MAALOX 30 ML SUSP *UDC PO PRN (08:15)
[2021-10-08] MEDS: cefTRIAXone SOD 1 GM in D5W MINI-BAG PLUS 50 ML IV SCH (01:42)
[2021-10-08] MEDS: VANCOMYCIN ORAL SOL 250MG/5ML ORAL SYRINGE PO SCH ×4 (01:42→18:10)
[2021-10-08] MEDS: PANTOPRAZOLE 40MG VIAL IV SCH (01:43)
[2021-10-08] MEDS: MAALOX 30 ML SUSP *UDC PO PRN (01:43)
[2021-10-08] MEDS: ACETAMINOPHEN TAB 650MG DOSE (2X325MG) PO PRN ×5 (01:44→21:29)
[2021-10-08] MEDS: dexameTHASONE 4 MG/ML 1ML VIAL (J1100 PER 1MG) IV SCH ×2 (01:46→13:30)
[2021-10-08] MEDS: COMBIVENT RESPIMAT 100-20MCG INHALER 4GM INH SCH ×4 (02:07→19:47)
[2021-10-08] MEDS ORDERED: CALCIUM CARBONATE 500 MG CHEW U/D PO PRN (03:20)
[2021-10-08] MEDS: GABAPENTIN 300 MG CAP PO SCH ×3 (05:06→21:28)
[2021-10-08 05:07] VITALS: BP 123/67
[2021-10-08] MEDS: SIMETHICONE 80MG CHEW TAB PO PRN (05:07)
[2021-10-08 06:30] LABS: HEMATOCRIT 29.2 % (36.0-47.0); HEMOGLOBIN 9.3 g/dl (12.0-15.5); MEAN CORPUSCULAR HEMOGLOBIN 24.7 pg (27.0-33.0); MEAN CORPUSCULAR HGB CONC 31.8 g/dl (32.0-36.5); MEAN CORPUSCULAR VOLUME 77.7 fl (80.0-96.0); PLATELET COUNT, AUTOMATED 602 10^3/uL (150-450); RED BLOOD COUNT 3.76 10^6/uL (4.00-5.40); WHITE BLOOD COUNT 14.2 10^3/uL (4.0-10.0)
[2021-10-08 06:47] LABS: BLOOD UREA NITROGEN 12 MG/DL (7-18); CALCIUM LEVEL 7.9 MG/DL (8.8-10.2); CARBON DIOXIDE LEVEL 30 MEQ/L (21-32); CHLORIDE LEVEL 103 MEQ/L (98-107); CREATININE FOR GFR 0.43 MG/DL (0.55-1.30); GLOMERULAR FILTRATION RATE > 60.0 (>39); GLUCOSE, FASTING 101 MG/DL (70-100); POTASSIUM SERUM 4.7 MEQ/L (3.5-5.1); SODIUM LEVEL 136 MEQ/L (136-145)
[2021-10-08] MEDS: LIDOCAINE 5% (LIDODERM) PATCH TD SCH (09:00)
[2021-10-08] MEDS: ENOXAPARIN 60MG/0.6ML SYRINGE (J1650 PER 10MG) SC SCH ×2 (09:07→21:29)
[2021-10-08] MEDS: DOXYCYCLINE HYCLATE 100MG TABLET PO SCH (09:07)
[2021-10-08] MEDS: BARICITINIB 2MG TABLET (OLUMIANT) FOR EUA PO SCH (10:51)
[2021-10-08 14:00] VITALS: BP 129/67
[2021-10-08 20:02] VITALS: BP 136/68
[2021-10-08] MEDS ORDERED: IPRATROPIUM 0.5MG/ALBUTEROL 2.5MG INH SOL UD 3ML (DUONEB) NEB PRN (21:30)
[2021-10-09 00:56] VITALS: O2SAT 96
[2021-10-09] MEDS: dexameTHASONE 4 MG/ML 1ML VIAL (J1100 PER 1MG) IV SCH ×2 (01:10→13:31)
[2021-10-09] MEDS: VANCOMYCIN ORAL SOL 250MG/5ML ORAL SYRINGE PO SCH ×4 (01:10→17:52)
[2021-10-09] MEDS: COMBIVENT RESPIMAT 100-20MCG INHALER 4GM INH SCH ×4 (02:00→20:14)
[2021-10-09 06:16] LABS: HEMOGLOBIN 9.7 g/dl (12.0-15.5); MEAN CORPUSCULAR HEMOGLOBIN 24.5 pg (27.0-33.0); MEAN CORPUSCULAR HGB CONC 31.3 g/dl (32.0-36.5); MEAN CORPUSCULAR VOLUME 78.3 fl (80.0-96.0); PLATELET COUNT, AUTOMATED 647 10^3/uL (150-450); RED BLOOD COUNT 3.96 10^6/uL (4.00-5.40); WHITE BLOOD COUNT 13.2 10^3/uL (4.0-10.0)
[2021-10-09] MEDS: GABAPENTIN 300 MG CAP PO SCH ×3 (06:21→21:30)
[2021-10-09] MEDS: ACETAMINOPHEN TAB 650MG DOSE (2X325MG) PO PRN ×4 (06:22→21:31)
[2021-10-09 06:51] LABS: BLOOD UREA NITROGEN 11 MG/DL (7-18); CALCIUM LEVEL 8.3 MG/DL (8.8-10.2); CARBON DIOXIDE LEVEL 29 MEQ/L (21-32); CHLORIDE LEVEL 101 MEQ/L (98-107); CREATININE FOR GFR 0.47 MG/DL (0.55-1.30); GLOMERULAR FILTRATION RATE > 60.0 (>39); GLUCOSE, FASTING 109 MG/DL (70-100); POTASSIUM SERUM 4.7 MEQ/L (3.5-5.1); SODIUM LEVEL 135 MEQ/L (136-145)
[2021-10-09] MEDS: ENOXAPARIN 60MG/0.6ML SYRINGE (J1650 PER 10MG) SC SCH ×2 (08:51→21:30)
[2021-10-09] MEDS: LIDOCAINE 5% (LIDODERM) PATCH TD SCH ×2 (08:51→08:54)
[2021-10-09] MEDS: PANTOPRAZOLE 40MG TAB (PROTONIX) PO SCH (08:52)
[2021-10-09] MEDS: BARICITINIB 2MG TABLET (OLUMIANT) FOR EUA PO SCH (08:52)
[2021-10-09 09:00] VITALS: O2SAT 94
[2021-10-09 14:00] VITALS: BP 123/69
[2021-10-09 20:00] VITALS: O2SAT 94
[2021-10-09 22:00] VITALS: BP 120/65
[2021-10-10] VITALS (7 sets, daily range): BP systolic 117–120; BP diastolic 65–68; O2SAT 96–98
[2021-10-10] MEDS: dexameTHASONE 4 MG/ML 1ML VIAL (J1100 PER 1MG) IV SCH ×2 (01:27→13:30)
[2021-10-10] MEDS: VANCOMYCIN ORAL SOL 250MG/5ML ORAL SYRINGE PO SCH ×4 (01:27→17:16)
[2021-10-10] MEDS: ACETAMINOPHEN TAB 650MG DOSE (2X325MG) PO PRN ×6 (01:28→21:48)
[2021-10-10] MEDS: COMBIVENT RESPIMAT 100-20MCG INHALER 4GM INH SCH ×4 (02:00→19:18)
[2021-10-10] MEDS: GABAPENTIN 300 MG CAP PO SCH ×3 (05:59→20:35)
[2021-10-10 07:35] LABS: HEMATOCRIT 30.7 % (36.0-47.0); HEMOGLOBIN 9.4 g/dl (12.0-15.5); MEAN CORPUSCULAR HEMOGLOBIN 24.7 pg (27.0-33.0); MEAN CORPUSCULAR HGB CONC 30.6 g/dl (32.0-36.5); MEAN CORPUSCULAR VOLUME 80.6 fl (80.0-96.0); PLATELET COUNT, AUTOMATED 659 10^3/uL (150-450); RED BLOOD COUNT 3.81 10^6/uL (4.00-5.40); WHITE BLOOD COUNT 12.4 10^3/uL (4.0-10.0)
[2021-10-10 08:10] LABS: BLOOD UREA NITROGEN 11 MG/DL (7-18); CALCIUM LEVEL 8.2 MG/DL (8.8-10.2); CARBON DIOXIDE LEVEL 29 MEQ/L (21-32); CHLORIDE LEVEL 102 MEQ/L (98-107); CREATININE FOR GFR 0.46 MG/DL (0.55-1.30); GLOMERULAR FILTRATION RATE > 60.0 (>39); GLUCOSE, FASTING 103 MG/DL (70-100); POTASSIUM SERUM 4.6 MEQ/L (3.5-5.1); SODIUM LEVEL 137 MEQ/L (136-145)
[2021-10-10] MEDS: ENOXAPARIN 60MG/0.6ML SYRINGE (J1650 PER 10MG) SC SCH ×2 (08:40→20:34)
[2021-10-10] MEDS: PANTOPRAZOLE 40MG TAB (PROTONIX) PO SCH (08:40)
[2021-10-10] MEDS: BARICITINIB 2MG TABLET (OLUMIANT) FOR EUA PO SCH (08:40)
[2021-10-10] MEDS: LIDOCAINE 5% (LIDODERM) PATCH TD SCH (08:41)
[2021-10-10] MEDS ORDERED: ONDANSETRON 4MG 2ML VIAL IV PRN (13:50)
[2021-10-11] VITALS (7 sets, daily range): BP systolic 99–109; BP diastolic 57–75; O2SAT 93–94
[2021-10-11] MEDS: VANCOMYCIN ORAL SOL 250MG/5ML ORAL SYRINGE PO SCH ×4 (00:43→17:54)
[2021-10-11] MEDS: COMBIVENT RESPIMAT 100-20MCG INHALER 4GM INH SCH ×4 (01:15→19:47)
[2021-10-11] MEDS: traMADol 50 MG TAB PO PRN ×2 (03:19→13:00)
[2021-10-11] MEDS: ACETAMINOPHEN TAB 650MG DOSE (2X325MG) PO PRN ×4 (03:24→22:00)
[2021-10-11] MEDS: GABAPENTIN 300 MG CAP PO SCH ×3 (05:37→21:18)
[2021-10-11 07:28] LABS: HEMOGLOBIN 9.1 g/dl (12.0-15.5); MEAN CORPUSCULAR HEMOGLOBIN 24.5 pg (27.0-33.0); MEAN CORPUSCULAR HGB CONC 31.4 g/dl (32.0-36.5); PLATELET COUNT, AUTOMATED 597 10^3/uL (150-450); RED BLOOD COUNT 3.72 10^6/uL (4.00-5.40); WHITE BLOOD COUNT 15.6 10^3/uL (4.0-10.0)
[2021-10-11 07:56] LABS: BLOOD UREA NITROGEN 12 MG/DL (7-18); CARBON DIOXIDE LEVEL 27 MEQ/L (21-32); CHLORIDE LEVEL 103 MEQ/L (98-107); CREATININE FOR GFR 0.39 MG/DL (0.55-1.30); GLOMERULAR FILTRATION RATE > 60.0 (>39); GLUCOSE, FASTING 80 MG/DL (70-100); POTASSIUM SERUM 4.3 MEQ/L (3.5-5.1); SODIUM LEVEL 135 MEQ/L (136-145)
[2021-10-11] MEDS: dexameTHASONE 4 MG/ML 1ML VIAL (J1100 PER 1MG) IV SCH (08:57)
[2021-10-11] MEDS: BARICITINIB 2MG TABLET (OLUMIANT) FOR EUA PO SCH (08:57)
[2021-10-11] MEDS: PANTOPRAZOLE 40MG TAB (PROTONIX) PO SCH (08:57)
[2021-10-11] MEDS: ENOXAPARIN 60MG/0.6ML SYRINGE (J1650 PER 10MG) SC SCH ×2 (08:58→21:18)
[2021-10-11] MEDS: LIDOCAINE 5% (LIDODERM) PATCH TD SCH (09:00)
[2021-10-12] MEDS: VANCOMYCIN ORAL SOL 250MG/5ML ORAL SYRINGE PO SCH ×4 (01:09→13:33)
[2021-10-12] MEDS: COMBIVENT RESPIMAT 100-20MCG INHALER 4GM INH SCH ×3 (02:00→13:50)
[2021-10-12] MEDS: ACETAMINOPHEN TAB 650MG DOSE (2X325MG) PO PRN ×3 (03:38→13:34)
[2021-10-12 06:00] VITALS: BP 119/64
[2021-10-12] MEDS: GABAPENTIN 300 MG CAP PO SCH ×2 (06:11→13:33)
[2021-10-12] MEDS: traMADol 50 MG TAB PO PRN (06:12)
[2021-10-12 06:49] LABS: HEMATOCRIT 28.6 % (36.0-47.0); HEMOGLOBIN 8.9 g/dl (12.0-15.5); MEAN CORPUSCULAR HEMOGLOBIN 25.1 pg (27.0-33.0); MEAN CORPUSCULAR HGB CONC 31.1 g/dl (32.0-36.5); MEAN CORPUSCULAR VOLUME 80.8 fl (80.0-96.0); PLATELET COUNT, AUTOMATED 605 10^3/uL (150-450); RED BLOOD COUNT 3.54 10^6/uL (4.00-5.40); WHITE BLOOD COUNT 13.7 10^3/uL (4.0-10.0)
[2021-10-12 07:38] LABS: BLOOD UREA NITROGEN 10 MG/DL (7-18); CARBON DIOXIDE LEVEL 28 MEQ/L (21-32); CHLORIDE LEVEL 105 MEQ/L (98-107); CREATININE FOR GFR 0.44 MG/DL (0.55-1.30); GLOMERULAR FILTRATION RATE > 60.0 (>39); GLUCOSE, FASTING 79 MG/DL (70-100); POTASSIUM SERUM 4.3 MEQ/L (3.5-5.1); SODIUM LEVEL 138 MEQ/L (136-145)
[2021-10-12 08:08] VITALS: O2SAT 92
[2021-10-12] MEDS: LIDOCAINE 5% (LIDODERM) PATCH TD SCH (09:00)
[2021-10-12] MEDS: BARICITINIB 2MG TABLET (OLUMIANT) FOR EUA PO SCH (09:27)
[2021-10-12] MEDS: dexameTHASONE 4 MG/ML 1ML VIAL (J1100 PER 1MG) IV SCH (09:27)
[2021-10-12] MEDS: PANTOPRAZOLE 40MG TAB (PROTONIX) PO SCH (09:27)
[2021-10-12] MEDS: ENOXAPARIN 60MG/0.6ML SYRINGE (J1650 PER 10MG) SC SCH (09:28)
[2021-10-12] MEDS ORDERED: ELIQ5TAB PO (10:05)
[2021-10-12] MEDS ORDERED: ACET650T15 PO (12:53)
[2021-10-12] MEDS ORDERED: VANC250C3 PO (12:53)
[2021-10-12] MEDS ORDERED: DEXA2TA PO (12:53)
[2021-10-12 13:50] VITALS: O2SAT 95
[2021-10-12 14:00] VITALS: BP 118/63
== END 2021-10-12 16:50 | disposition home health service (06) | DRG 177 ==
LOC: EDBD 18:41 → M ED 18:41 → M ED INP 23:58 → M PCU 10-02 01:33 → M MS5PR 10-07 17:26
PROVIDERS: ADMIT Family Medicine; ATTEND Internal Medicine
DX: U07.1 COVID-19 (principal); J12.82 Pneumonia due to coronavirus disease 2019; I26.99 Other pulmonary embolism without acute cor pulmonale; J96.01 Acute respiratory failure with hypoxia; J15.9 Unspecified bacterial pneumonia; D68.69 Other thrombophilia; J44.0 Chronic obstructive pulmonary disease with (acute) lower respiratory infection; C34.90 Malignant neoplasm of unspecified part of unspecified bronchus or lung; A04.72 Enterocolitis due to Clostridium difficile, not specified as recurrent; K57.30 Diverticulosis of large intestine without perforation or abscess without bleeding; K21.9 Gastro-esophageal reflux disease without esophagitis; J44.9 Chronic obstructive pulmonary disease, unspecified; Z79.899 Other long term (current) drug therapy; Z87.891 Personal history of nicotine dependence; G62.9 Polyneuropathy, unspecified